=== PATIENT | male | born 1960 | race Caucasian/White ===

== ENCOUNTER 2016-09-17 11:45 | Inpatient (IN) | payer OTHER ==
[2016-09-17 13:07] VITALS: BMI 25.3
--- NOTE | 2016-09-17 15:13 | HP ---
COWS - Scale Resting Pulse: 1= [place] 81-100 Sweatin=Flushed/Facial Moisture Restless Observation: 1= Difficult to Sit Still Pupil Size: 1= Pupils >than Normal Bone or Joint Aches: 2= Severe Diffuse Aches Runny Nose/ Eye Tearin= Nasal Congestion GI Upset > 30mins: 1= Stomach Cramp Tremor Observation: 2= Slight Tremor Visible Yawning Observation: 1= 1-2x During Session Anxiety or Irritability: 1=Feels Anxious/Irritable Goose Flesh Skin: 0=Smooth Skin COWS Score: 13 Admission ROS BHS - HPI Chief Complaint: I need help to stop using heroin . Allergies/Adverse Reactions: Allergies Allergy/AdvReac Type Severity Reaction Status Date / Time Fish Containing Products Allergy Severe Rash Verified 09/17/16 14:54 gabapentin [From Neurontin] Allergy Severe Cough Verified 06/07/16 14:30 pregabalin [From Lyrica] AdvReac Severe depression Verified 06/07/16 14:30 History of Present Illness: 56 y/o m pt with a h/o heroin dep. and alcohol abuse seeking detox. Exam Limitations: No Limitations - Ebola screening Have you traveled outside of the country in the last 21 days: No Have you had contact with anyone from an Ebola affected area: No Have you been sick,other than usual withdrawal symptoms: No Do you have a fever: No - Review of Systems Constitutional: Malaise, Night Sweats, Changes in sleep, Weakness EENT: reports: Nose Congestion Respiratory: reports: No Symptoms reported Cardiac: reports: No Symptoms Reported GI: reports: Nausea, Abdominal cramping : reports: No Symptoms Reported Musculoskeletal: reports: Joint Pain (rt shoulder) Integumentary: reports: No Symptoms Reported Neuro: reports: Tremors Endocrine: reports: No Symptoms Reported Hematology: reports: No Symptoms Reported Psychiatric: reports: Depressed Other Systems: Reviewed and Negative Patient History - Patient Medical History Hx Anemia: No Hx Asthma: No Hx Chronic Obstructive Pulmonary Disease (COPD): No Hx Cancer: No Hx Cardiac Disorders: No Hx Congestive Heart Failure: No Hx Hypertension: No Hx Hypercholesterolemia: No Hx Pacemaker: No HX Cerebrovascular Accident: No Hx Seizures: No Hx Dementia: No Hx Diabetes: No Hx Gastrointestinal Disorders: No Hx Liver Disease: No Hx Genitourinary Disorders: No Hx Sexually Transmitted Disorders: No Hx Renal Disease (ESRD): No Hx Thyroid Disease: No Hx Human Immunodeficiency Virus (HIV): No (Last tested: 2014: NEGATIVE.) Hx Hepatitis C: No (Last tested: 2014: NEGATIVE.) Hx Depression: Yes Hx Suicide Attempt: No Hx Bipolar Disorder: No Hx Schizophrenia: No Other Medical History: chronic lbp - Patient Surgical History Past Surgical History: Yes Hx Neurologic Surgery: No Hx Cataract Extraction: No Hx Cardiac Surgery: No Hx Lung Surgery: No Hx Breast Surgery: No Hx Breast Biopsy: No Hx Abdominal Surgery: Yes (LEFT INGUINAL HERNIA SX IN YOUNGER YEARS) Hx Appendectomy: No Hx Cholecystectomy: No Hx Genitourinary Surgery: No Hx Section: No Hx Orthopedic Surgery: No Other Surgical History: Hx. of fall from height, Pt stated had trumatic brain injury, no surgery Anesthesia Reaction: No - PPD History Previous Implant?: Yes Documented Results: Positive w/proof Implanted On Prior [facility] Admission?: No Results: CXR(-) - Reproductive History Patient is a Female of Child Bearing Age (11 -55 yrs old): No - Smoking Cessation Smoking history: Current every day smoker Have you smoked in the past 12 months: Yes Aproximately how many cigarettes per day: 10 Cigars Per Day: 0 Hx Chewing Tobacco Use: No Initiated information on smoking cessation: Yes 'Breaking Loose' booklet given: 09/17/16 - Substance & Tx. History Hx Alcohol Use: Yes Hx Substance Use: Yes Substance Use Type: Alcohol, Heroin Hx Substance Use Treatment: Yes - Substances Abused Heroin Route: Inhalation Frequency: Daily Amount used: 8-10 BAGS Age of first use: 32 Date of Last Use: 09/17/16 Alcohol Route: Oral Frequency: 3-6 times per week Amount used: 6 VODKA DRINKS Age of first use: 14 Date of Last Use: 09/16/16 Family Disease History - Family Disease History Family History: Denies Admission Physical Exam BHS - Vital Signs Vital Signs: Vital Signs - 24 hr 09/17/16 13:06 Temperature 97.1 F L Pulse Rate 81 Respiratory 18 Rate Blood Pressure 141/88 56 y/o m pt aox3 in nad ambulating - Physical General Appearance: Yes: No Apparent Distress, Disheveled HEENTM: Yes: EOMI, Normocephalic, Normal Voice, ARYAN, Nasal Congestion Respiratory: Yes: Chest Non-Tender, Lungs Clear, Normal Breath Sounds, Decreased Breath Sounds, Labored Respiration, No Respiratory Distress Neck: Yes: Supple, Trachea in good position Breast: Yes: Within Normal Limits Cardiology: Yes: Regular Rhythm, Regular Rate, S1, S2 Abdominal: Yes: Non Tender, Flat, Increased Bowel Sounds, Surgical Scar (rt lq well healed scar) Genitourinary: Yes: Within Normal Limits Back: Yes: Decreased Range of Motion Musculoskeletal: Yes: Back pain Extremities: Yes: Tremors Neurological: Yes: yeast supervisor II-XII NML intact, Fully Oriented, Alert, Motor Strength 5/5, Normal Response Integumentary: Yes: Within Normal Limits, Diaphoresis, Moist Lymphatic: Yes: Within Normal Limits - Diagnostic (1) Opioid dependence with withdrawal Current Visit: Yes Status: Chronic (2) Injury of right shoulder and upper arm Current Visit: Yes Status: Chronic Qualifiers: Encounter type: sequela Qualified Code(s): S49.91XS - Unspecified injury of right shoulder and upper arm, sequela (3) MDD (major depressive disorder) Current Visit: Yes Status: Chronic Qualifiers: Psychotic features: without psychotic features Comment: Historical diagnosis. (4) Nicotine dependence with withdrawal Current Visit: Yes Status: Chronic Qualifiers: Nicotine product type: cigarettes Qualified Code(s): F17.213 - Nicotine dependence, cigarettes, with withdrawal (5) Alcohol abuse Current Visit: Yes Status: Chronic Cleared for Admission [facility] - Detox or Rehab [facility] Level of Care: Medically Managed Detox Regimen/Protocol: Methadone [facility] Breath Alcohol Content Breath Alcohol Content: 0 Urine Drug Screen - Results Urine Drug Screen Results: OPI-Opiates, MTD-Methadone
[2016-09-17] MEDS ORDERED: hydrOXYzine PAMOATE 25 MG CAPSULE (FP) PO PRN (15:28)
[2016-09-17] MEDS ORDERED: ACETAMINOPHEN 325 MG TABLET (FP) PO PRN (15:28)
[2016-09-17] MEDS ORDERED: MAG HYDROX/AL HYDROX/SIMETH 30 ML UNIT-DOSE CUP PO PRN (15:28)
[2016-09-17] MEDS ORDERED: MAGNESIUM HYDROX 2400MG/30ML ORAL SUSPENSION 30 ML CUP PO PRN (15:28)
[2016-09-17] MEDS ORDERED: guaiFENesin/D-METHORPHAN HB 10 ML UNIT-DOSE CUPS PO PRN (15:28)
[2016-09-17] MEDS ORDERED: MAGNESIUM CITRATE 300 ML BOTTLE PO PRN (15:28)
[2016-09-17] MEDS ORDERED: diphenhydrAMINE HCL 50 MG CAPSULE PO PRN (15:28)
[2016-09-17] MEDS ORDERED: IBUPROFEN 400 MG TABLET (FP) PO PRN (15:28)
[2016-09-17] MEDS ORDERED: MENTHOL/PHENOL 1 EACH UD MM PRN (15:28)
[2016-09-17] MEDS ORDERED: LOPERAMIDE HCL 2 MG CAPSULE PO PRN (15:28)
[2016-09-17] MEDS ORDERED: P-EPHED 60MG/TRIPROLIDI 2.5MG TABLET PO PRN (15:28)
[2016-09-17] MEDS ORDERED: METHADONE HCL 10 MG TABLET (FOR DETOX USE ONLY) PO ONE ×2 (16:00→23:00)
[2016-09-17] MEDS: diazePAM 5 MG TABLET PO PRN ×2 (17:00→23:07)
[2016-09-17] MEDS: THIAMINE HCL 100 MG TABLET (FP) PO SCH (23:07)
[2016-09-18] MEDS: diazePAM 5 MG TABLET PO PRN ×4 (05:21→22:13)
[2016-09-18 09:57] LABS: MCH 33.4 pg (25.7-33.7); MCHC 34.2 g/dl (32.0-35.9); MEAN CELL VOLUME 97.6 fl (80-96); MEAN PLT VOLUME 9.8 fl (7.5-11.1); PLATELET COUNT 155 K/MM3 (134-434); RDW 12.5 % (11.9-15.9); WHITE BLOOD COUNT 6.8 K/mm3 (4.0-10.0)
[2016-09-18] MEDS ORDERED: METHADONE HCL 10 MG TABLET (FOR DETOX USE ONLY) PO ONE (10:00)
[2016-09-18 10:17] LABS: ANION GAP 9 (8-16); CALCIUM 8.5 mg/dL (8.5-10.1); CO2 28 mmol/L (21-32); CREATININE 0.8 mg/dL (0.7-1.3); GLUCOSE,RANDOM 113 mg/dL (74-106); SGOT/AST 17 U/L (15-37); SGPT/ALT 21 U/L (12-78)
[2016-09-18 10:18] LABS: ALK PHOS 83 U/L (45-117); BILIRUBIN,TOTAL 0.4 mg/dL (0.2-1.0); TOT PROT 6.5 g/dl (6.4-8.2)
[2016-09-18] MEDS: PRENATAL VITAMINS W/ FOLIC ACID TABLET (FP) PO SCH (10:36)
--- NOTE | 2016-09-18 11:32 | PN ---
BHS COWS - Scale Resting Pulse: 1= [place] 81-100 Sweatin=Flushed/Facial Moisture Restless Observation: 1= Difficult to Sit Still Pupil Size: 0= Normal to Room Light Bone or Joint Aches: 2= Severe Diffuse Aches Runny Nose/ Eye Tearin= Nasal Congestion GI Upset > 30mins: 1= Stomach Cramp Tremor Observation of Outstretched Hands: 2= Slight Tremor Visible Yawning Observation: 2= >3x During Session Anxiety or Irritability: 2=Irritable/Anxious Goose Flesh Skin: 3=Piloerection COWS Score: 17 BHS Progress Note (SOAP) Subjective: agitation anxiety sweats irritable body aches interrupted sleep Objective: 09/18/16 11:31 Vital Signs Temperature 97.7 F 09/18/16 10:47 Pulse Rate 87 09/18/16 10:47 Respiratory Rate 16 09/18/16 10:47 Blood Pressure 98/54 09/18/16 10:47 O2 Sat by Pulse Oximetry (%) Laboratory Tests 09/18/16 09/18/16 06:00 06:00 WBC 6.8 RBC 4.34 Hgb 14.5 Hct 42.4 MCV 97.6 H MCHC 34.2 RDW 12.5 Plt Count 155 MPV 9.8 Sodium 140 Potassium 4.0 Chloride 103 Carbon Dioxide 28 Anion Gap 9 BUN 17 Creatinine 0.8 Creat Clearance w eGFR > 60 Random Glucose 113 H D Calcium 8.5 Total Bilirubin 0.4 AST 17 D ALT 21 D Alkaline Phosphatase 83 Total Protein 6.5 D Albumin 4.0 D labs pending awake/alert ambulating no acute distress Assessment: 09/18/16 11:32 withdrawal sx Plan: continue detox increase fluids
--- NOTE | 2016-09-18 13:00 | CONSULT ---
[facility] Psychiatric Consult - Data Date of interview: 09/18/16 Admission source: [facility] Identifying data: Another admission to [facility] for this 56 y/o male seeking detox treatment on for alcohol and heroin dependence.Patient is single without children,domiciled and physically disabled (supported on [facility] and [place] pension benefits). Substance Abuse History: - Smoking Cessation. Smoking history: Current every day smoker. Have you smoked in the past 12 months: Yes. Aproximately how many cigarettes per day: 10. Cigars Per Day: 0. Hx Chewing Tobacco Use: No. Initiated information on smoking cessation: Yes. 'Breaking Loose' booklet given : 09/17/16. - Substance & Tx. History. Hx Alcohol Use: Yes. Hx Substance Use : Yes. Substance Use Type: Alcohol, Heroin. Hx Substance Use Treatment: Yes. - Substances Abused. Heroin. Route: Inhalation. Frequency: Daily. Amount used: 8-10 BAGS. Age of first use: 32. Date of Last Use: 09/17/16. Alcohol. Route: Oral. Frequency: 3-6 times per week. Amount used: 6 VODKA DRINKS. Age of first use: 14. Date of Last Use: 09/16/16 Medical History: Low back pain,traumatic brain injury and left inguinal herniorraphy. Psychiatric History: Patient is an irritable and hostile historian." Get my records and you 'll find whtever you want to know.I am tired." Patient is already known to [facility].History taken from past records.As follows : diagnosed with PTSD (wounded in combat during tour of duty in [facility] in 1982).History of multiple psychiatric hospitalizations as well as two extensive stays at the [facility] (last hospitalization was in 2013) .Hospitalizations were at various [facility] facilities for a syndrome made of nightmares,panic attacks,flashbacks related to past combat situations,mood dysregulation,poor general functioning and hopelessness).For a number of years,the patient received OPD services at the [facility] ( [facility]) consisting of psychotherapy and medication management (remeron ,prazosin,zolpidem,sertraline).Mr Stallings,in this interview,declines to resume his past medications.No reported attendance to any OPD care setting at this time.No report of suicide attempts. Physical/Sexual Abuse/Trauma History: No reported history of sexual abuse.Traumatized by his war experiences in [facility],[place] ([place]). Additional Comment: Urine Drug Screen Results: OPI-Opiates, MTD-Methadone.Noted. Mental Status Exam - Mental Status Exam Alert and Oriented to: Time, Place, Person Cognitive Function: Grossly Intact Patient Appearance: Unkempt, Disheveled Mood: Nervous, Withdrawn, Irritable Affect: Mood Congruent Patient Behavior: Sedated, Fatigued Speech Pattern: Clear Voice Loudness: Normal Thought Process: Goal Oriented Thought Disorder: Not Present Hallucinations: Denies Suicidal Ideation: Denies Homicidal Ideation: Denies Insight/Judgement: Poor Sleep: Fair Appetite: Good Muscle strength/Tone: Normal Gait/Station: Normal Psychiatric Findings - Problem List ([place] 1, 2,3) (1) Opioid dependence with withdrawal Current Visit: Yes Status: Acute (2) Alcohol dependence Current Visit: Yes Status: Acute (3) Cocaine dependence with withdrawal Current Visit: Yes Status: Acute (4) Nicotine dependence Current Visit: Yes Status: Acute Qualifiers: Nicotine product type: cigarettes Substance use status: uncomplicated Qualified Code(s): F17.210 - Nicotine dependence, cigarettes, uncomplicated (5) PTSD (post-traumatic stress disorder) Current Visit: Yes Status: Chronic Comment: By history. (6) Substance induced mood disorder Current Visit: Yes Status: Acute - Initial Treatment Plan Initial Treatment Plan: Psychoeducation.Detoxification.Patient refused to get back on antidepressant/atypical agents and hypnotic medications in spite of this auto service writer's pressing recommendations.Made aware of potential risks taken by abstaining from psychopharmacotherapy.Observation.
[2016-09-18] MEDS: THIAMINE HCL 100 MG TABLET (FP) PO SCH (22:14)
--- NOTE | 2016-09-18 23:39 | EKG ---
Test Reason : Blood Pressure : / mmHG Vent. Rate : 072 BPM Atrial Rate : 072 BPM P-R Int : 142 ms QRS Dur : 088 ms QT Int : 398 ms P-R-T Axes : 079 037 041 degrees QTc Int : 435 ms NORMAL SINUS RHYTHM POSSIBLE LEFT ATRIAL ENLARGEMENT SEPTAL INFARCT , AGE UNDETERMINED ABNORMAL ECG NO PREVIOUS ECGS AVAILABLE Confirmed by PREETI HERMOSILLO, MARTINA ([id number]) on 09/18/2016 11:39:19 PM Referred By: Kwesi Noel Confirmed By:MARTINA ÁLVAREZ MD
--- NOTE | 2016-09-19 08:55 | DS ---
[facility] Detox Discharge Summary Admission Date: 09/17/16 Discharge Date: 09/19/16 - History Present History: Alcohol Dependence, Opioid Dependence - Physical Exam Results Vital Signs: Vital Signs Temperature 97.9 F 09/19/16 06:00 Pulse Rate 60 09/19/16 06:00 Respiratory Rate 18 09/19/16 06:00 Blood Pressure 127/85 09/19/16 06:00 O2 Sat by Pulse Oximetry (%) - Treatment Hospital Course: Detox Protocol Followed, Detoxed Safely, Responded well, Discharged Condition Good - Medication Discharge Medications: Ambulatory Orders NK [No Known Home Medication] 09/17/16 - Diagnosis (1) Opioid dependence with withdrawal Current Visit: Yes Status: Acute (2) Injury of right shoulder and upper arm Current Visit: Yes Status: Chronic Qualifiers: Encounter type: sequela Qualified Code(s): S49.91XS - Unspecified injury of right shoulder and upper arm, sequela (3) MDD (major depressive disorder) Current Visit: Yes Status: Chronic Qualifiers: Psychotic features: without psychotic features (4) Nicotine dependence with withdrawal Current Visit: Yes Status: Chronic Qualifiers: Nicotine product type: cigarettes Qualified Code(s): F17.213 - Nicotine dependence, cigarettes, with withdrawal (5) Alcohol abuse Current Visit: Yes Status: Chronic
[2016-09-19] MEDS ORDERED: METHADONE HCL 5 MG TABLET (FOR DETOX USE ONLY) PO ONE (10:00)
[2016-09-19] MEDS ORDERED: CYCLOBENZAPRINE HCL 10 MG TABLET (FP) PO PRN (10:42)
[2016-09-19] MEDS: PRENATAL VITAMINS W/ FOLIC ACID TABLET (FP) PO SCH (10:50)
[2016-09-19] MEDS: diazePAM 5 MG TABLET PO PRN ×2 (10:53→22:06)
--- NOTE | 2016-09-19 11:24 | PN ---
S COWS - Scale Resting Pulse: 0= [place] 80 or Below Sweatin=Flushed/Facial Moisture Restless Observation: 1= Difficult to Sit Still Pupil Size: 1= Pupils >than Normal Bone or Joint Aches: 1= Mild Discomfort Runny Nose/ Eye Tearin= Runny Nose/Eyes GI Upset > 30mins: 2= Nausea/Diarrhea Tremor Observation of Outstretched Hands: 1= Tremor [place], Not Seen Yawning Observation: 0= None Anxiety or Irritability: 1=Feels Anxious/Irritable Goose Flesh Skin: 0=Smooth Skin COWS Score: 11 S Progress Note (SOAP) Subjective: interrupted sleep, sweats, nausea, achy Objective: 09/19/16 11:20 Vital Signs Temperature 97.5 F L 09/19/16 09:51 Pulse Rate 80 09/19/16 09:51 Respiratory Rate 18 09/19/16 09:51 Blood Pressure 96/63 09/19/16 09:51 O2 Sat by Pulse Oximetry (%) Vital Signs Temperature 97.5 F L 09/19/16 09:51 Pulse Rate 80 09/19/16 09:51 Respiratory Rate 18 09/19/16 09:51 Blood Pressure 96/63 09/19/16 09:51 O2 Sat by Pulse Oximetry (%) Laboratory Tests 09/18/16 09/18/16 09/18/16 06:00 06:00 06:00 WBC 6.8 RBC 4.34 Hgb 14.5 Hct 42.4 MCV 97.6 H MCHC 34.2 RDW 12.5 Plt Count 155 MPV 9.8 Sodium 140 Potassium 4.0 Chloride 103 Carbon Dioxide 28 Anion Gap 9 BUN 17 Creatinine 0.8 Creat Clearance w eGFR > 60 Random Glucose 113 H D Calcium 8.5 Total Bilirubin 0.4 AST 17 D ALT 21 D Alkaline Phosphatase 83 Total Protein 6.5 D Albumin 4.0 D RPR Titer Nonreactive pt aox3 lying in bed Assessment: 09/19/16 11:23 withdrawal sx's Plan: cont. detox increase fluids
--- NOTE | 2016-09-19 17:16 | PN ---
S Progress Note Note: requests ua order continue detox
[2016-09-19 21:07] LABS: URINE APPEARANCE CLEAR; URINE BILIRUBIN NEGATIVE (NEGATIVE); URINE BLOOD NEGATIVE (NEGATIVE); URINE COLOR LTYELLOW; URINE GLUCOSE (UA) NEGATIVE (NEGATIVE); URINE KETONE NEGATIVE (NEGATIVE); URINE LEUK ESTERASE NEGATIVE (NEGATIVE); URINE NITRITE NEGATIVE (NEGATIVE); URINE PROTEIN NEGATIVE (NEGATIVE); URINE UROBILINOGEN NEGATIVE E.U./dl (0.2-1.0)
[2016-09-19] MEDS: THIAMINE HCL 100 MG TABLET (FP) PO SCH (22:07)
--- NOTE | 2016-09-20 09:55 | PN ---
BHS Progress Note (SOAP) Subjective: sweats irritable agitation chills Objective: 09/20/16 09:48 Vital Signs Temperature 98.0 F 09/20/16 06:25 Pulse Rate 67 09/20/16 06:25 Respiratory Rate 18 09/20/16 06:25 Blood Pressure 123/78 09/20/16 06:25 O2 Sat by Pulse Oximetry (%) awake/alert ambulating no acute distress Assessment: 09/20/16 09:48 withdrawal sx Plan: continue detox increase fluids
[2016-09-20] MEDS ORDERED: METHADONE HCL 5 MG TABLET (FOR DETOX USE ONLY) PO ONE (10:00)
[2016-09-20] MEDS: diazePAM 5 MG TABLET PO PRN (10:24)
[2016-09-20] MEDS: PRENATAL VITAMINS W/ FOLIC ACID TABLET (FP) PO SCH (10:24)
[2016-09-20] MEDS: THIAMINE HCL 100 MG TABLET (FP) PO SCH (23:26)
--- NOTE | 2016-09-21 08:39 | PN ---
[facility] Progress Note Note: pt states he feels much better and would like to be d/c today. pt had acknowledged that he will receive his last methadone today and then go to rehab.
--- NOTE | 2016-09-21 08:43 | DS ---
[facility] Detox Discharge Summary Admission Date: 09/17/16 Discharge Date: 09/21/16 - History Present History: Alcohol Dependence, Cocaine Dependence, Opioid Dependence - Physical Exam Results Vital Signs: Vital Signs Temperature 97.7 F 09/21/16 06:38 Pulse Rate 68 09/21/16 06:38 Respiratory Rate 16 09/21/16 06:38 Blood Pressure 118/81 09/21/16 06:38 O2 Sat by Pulse Oximetry (%) - Treatment Hospital Course: Detox Protocol Followed, Detoxed Safely, Responded well, Discharged Condition Good, Rehab Referral Accepted - Medication Discharge Medications: Ambulatory Orders NK [No Known Home Medication] 09/17/16 - Diagnosis (1) Alcohol dependence Current Visit: Yes Status: Acute Qualifiers: Substance use status: uncomplicated Qualified Code(s): F10.20 - Alcohol dependence, uncomplicated (2) Cocaine dependence with withdrawal Current Visit: Yes Status: Chronic (3) Nicotine dependence Current Visit: Yes Status: Chronic Qualifiers: Nicotine product type: cigarettes Substance use status: uncomplicated Qualified Code(s): F17.210 - Nicotine dependence, cigarettes, uncomplicated (4) Opioid dependence with withdrawal Current Visit: Yes Status: Chronic (5) Substance induced mood disorder Current Visit: Yes Status: Acute (6) Injury of right shoulder and upper arm Current Visit: Yes Status: Chronic Qualifiers: Encounter type: sequela Qualified Code(s): S49.91XS - Unspecified injury of right shoulder and upper arm, sequela (7) MDD (major depressive disorder) Current Visit: Yes Status: Chronic Qualifiers: Psychotic features: without psychotic features (8) PTSD (post-traumatic stress disorder) Current Visit: Yes Status: Chronic (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
[2016-09-21 09:59] VITALS: BP 107/78; PULSE 80; TEMP 98.6
[2016-09-21] MEDS ORDERED: METHADONE HCL 10 MG TABLET (FOR DETOX USE ONLY) PO ONE (10:00)
[2016-09-21] MEDS: PRENATAL VITAMINS W/ FOLIC ACID TABLET (FP) PO SCH (10:05)
[2016-09-22] MEDS ORDERED: METHADONE HCL 5 MG TABLET (FOR DETOX USE ONLY) PO ONE (06:00)
== END 2016-09-21 12:01 | disposition other institution (70) | DRG 773 ==
LOC: YASAS 11:45 → Y6N 15:30
PROVIDERS: ADMIT Internal Medicine Addiction Medicine; ATTEND Internal Medicine Addiction Medicine
PROC: HZ2ZZZZ Detoxification Services for Substance Abuse Treatment (ICD-10-PCS; principal; 2016-09-21)
DX: F11.23 Opioid dependence with withdrawal (principal); F10.20 Alcohol dependence, uncomplicated; F14.20 Cocaine dependence, uncomplicated; F15.10 Other stimulant abuse, uncomplicated; F19.24 Other psychoactive substance dependence with psychoactive substance-induced mood disorder; F33.9 Major depressive disorder, recurrent, unspecified; F43.10 Post-traumatic stress disorder, unspecified; G47.00 Insomnia, unspecified; F51.5 Nightmare disorder; S49.91XS Unspecified injury of right shoulder and upper arm, sequela
CPT/HCPCS: 36415; 80053; 81003; 85027; 86593; 93005; 93010

== ENCOUNTER 2016-09-21 12:24 | Inpatient (IN) | payer OTHER ==
[2016-09-21] MEDS ORDERED: MAGNESIUM CITRATE 300 ML BOTTLE PO PRN (13:10)
[2016-09-21] MEDS ORDERED: IBUPROFEN 400 MG TABLET (FP) PO PRN (13:10)
[2016-09-21] MEDS ORDERED: hydrOXYzine PAMOATE 50 MG CAPSULE (FP) PO PRN (13:10)
[2016-09-21] MEDS ORDERED: P-EPHED 60MG/TRIPROLIDI 2.5MG TABLET PO PRN (13:10)
[2016-09-21] MEDS ORDERED: guaiFENesin/D-METHORPHAN HB 10 ML UNIT-DOSE CUPS PO PRN (13:10)
[2016-09-21] MEDS ORDERED: ACETAMINOPHEN 325 MG TABLET (FP) PO PRN (13:10)
[2016-09-21] MEDS ORDERED: diphenhydrAMINE HCL 50 MG CAPSULE PO PRN (13:10)
[2016-09-21] MEDS ORDERED: MENTHOL/PHENOL 1 EACH UD MM PRN (13:10)
[2016-09-21] MEDS ORDERED: MAG HYDROX/AL HYDROX/SIMETH 30 ML UNIT-DOSE CUP PO PRN (13:10)
[2016-09-21] MEDS ORDERED: MAGNESIUM HYDROX 2400MG/30ML ORAL SUSPENSION 30 ML CUP PO PRN (13:10)
[2016-09-21] MEDS ORDERED: LOPERAMIDE HCL 2 MG CAPSULE PO PRN (13:10)
--- NOTE | 2016-09-21 13:14 | HP ---
MARTHA HERMOSILLO Rehab Assess/Revision - Admission History Admitted to Rehab from: [facility] [place] Date of Admission to Rehab: 09/21/16 - Findings Detox History & Physical reviewed: Yes Concur with findings: Yes Comments/Additional Findings: FOR REHAB PROTOCOL
[2016-09-21] MEDS ORDERED: NICOTINE POLACRILEX 2 MG GUM BUC PRN (13:15)
[2016-09-21 13:35] VITALS: BMI 25.4
--- NOTE | 2016-09-21 14:23 | HP ---
Psychiatrist Admission - Data Date of interview: 09/21/16 Admission source: [facility] Identifying data: This is the second [facility] admission for this 56 years old single male, unemployed on [facility] [employer] pension, domiciled Medical History: Significant for Low back pain,traumatic brain injury and left inguinal herniorraphy. Smokes 10 cigarettes daily Psychiatric History: Reports being diagnosed with MDD and PTSD(wounded in combat during tour of duty in [facility] in 1982).Reports multiple previous psychiatric admissions to various [place] [facility] since 1982. Most recent admission was in 2012 at [facility]. Reports receiving OPD care at [facility] in the past. No OPD care at present and stopped taking psychotropic medications 8 months ago. He was on Seroquel, Remeron, Zoloft, Prazosin etc. He stopped taking Seroquel due to restless leg. Denies history of suicidal attempt. Requests to restart taking Remeron and Prazosin during this admission Physical/Sexual Abuse/Trauma History: No reported history of sexual abuse.Traumatized by his war experiences in [facility] (1982). Additional Comment: Reports historyof 3-4 previous arrests including 2 felony convictions. Denies being on probation/parle at present Vital Signs: Vital Signs - 24 hr 09/21/16 13:31 Temperature 99.0 F Pulse Rate 70 Blood Pressure 111/70 Allergies/Adverse Reactions: Allergies Allergy/AdvReac Type Severity Reaction Status Date / Time Fish Containing Products Allergy Severe Rash Verified 09/17/16 14:54 gabapentin [From Neurontin] Allergy Severe Cough Verified 06/07/16 14:30 pregabalin [From Lyrica] AdvReac Severe depression Verified 06/07/16 14:30 Date of last physical exam: 09/17/16 Concur with the findings of this exam: Yes - Substance Abuse/Tx History Hx Alcohol Use: Yes Hx Substance Use: Yes Substance Use Type: Alcohol (Started drinking alcohol at age 14, drinks vodka occasionally.Last drink on 09/16/16), Heroin (Started using heroin at age 32, consumes 8-10 bags daily. Last used on 09/17/16) Hx Substance Use Treatment: Yes (4 previous inpt detox & one inpt rehab @ [facility]) - Admission Criteria Previous failed treatment: No Poor recovery environment: Yes Comorbidities: Yes Lacks judgement: Yes Mental Status Exam - Mental Status Exam Alert and Oriented to: Time, Place, Person Cognitive Function: Fair Patient Appearance: Well Groomed Mood: Anxious Affect: Normal Range Patient Behavior: Cooperative Speech Pattern: Clear Voice Loudness: Normal Thought Process: Intact Thought Disorder: Not Present Hallucinations: Denies Suicidal Ideation: Denies Homicidal Ideation: Denies Insight/Judgement: Fair Sleep: Poorly Appetite: Good Muscle strength/Tone: Normal Gait/Station: Normal Psychiatric Findings - Problem List ([place] 1, 2,3) (1) Opioid dependence with withdrawal Current Visit: No Status: Chronic (2) Alcohol abuse Current Visit: Yes Status: Acute (3) Nicotine dependence Current Visit: Yes Status: Acute (4) MDD (major depressive disorder) Current Visit: Yes Status: Acute (5) PTSD (post-traumatic stress disorder) Current Visit: Yes Status: Acute (6) Acute low back pain Current Visit: Yes Status: Acute (7) PPD positive Current Visit: Yes Status: Acute - Initial Treatment Plan Initial Treatment Plan: 1) Start Remeron 30 mg po HS and Prazosin 1 mg po HS. 2 ) Monitor progress
[2016-09-21] MEDS: THIAMINE HCL 100 MG TABLET (FP) PO SCH (22:03)
[2016-09-22] MEDS: NICOTINE 21 MG/24 HOURS TOPICAL PATCH TD SCH (10:10)
[2016-09-22] MEDS: PRENATAL VITAMINS W/ FOLIC ACID TABLET (FP) PO SCH (10:10)
[2016-09-22] MEDS ORDERED: PRAZOSIN HCL 1 MG CAPSULE PO SCH (22:00)
[2016-09-22] MEDS: MIRTAZAPINE 30 MG TABLET (FP) PO SCH (22:04)
[2016-09-22] MEDS: THIAMINE HCL 100 MG TABLET (FP) PO SCH (22:04)
--- NOTE | 2016-09-23 06:18 | PN ---
[facility] Progress Note Note: ASKED TO SEE CLIENT FOR FALL. CLIENT REPORTS FEELING WEAK, TIRED AND LIGHTHEADED LOST HIS BALANCE AND FELL ON HIS BUTTOCKS. DENIES ANY INJURIES, LOC , CP, SOB,HEAD TRAUMA Vital Signs Temperature 98.1 F 09/23/16 06:41 Pulse Rate 89 09/23/16 06:41 Respiratory Rate 18 09/23/16 06:41 Blood Pressure 92/51 09/23/16 06:41 O2 Sat by Pulse Oximetry (%) BGM 100 A/O X3 NAD APPEARS LETHARGIC HEAD NCAT NO VISIBLE INJURIES NOTED FROM X4 W/O LIMITATIONS NOTED S/P FALL FALL PROTOCOL #2 V/S Q SHIFT X 4 HOURS PO HYDRATION HOLD ALL SEDATING MEDS
[2016-09-23] MEDS: NICOTINE 21 MG/24 HOURS TOPICAL PATCH TD SCH (09:33)
[2016-09-23] MEDS: PRENATAL VITAMINS W/ FOLIC ACID TABLET (FP) PO SCH (09:34)
[2016-09-23] MEDS: MIRTAZAPINE 30 MG TABLET (FP) PO SCH (21:11)
[2016-09-23] MEDS: THIAMINE HCL 100 MG TABLET (FP) PO SCH (21:12)
[2016-09-24] MEDS: PRENATAL VITAMINS W/ FOLIC ACID TABLET (FP) PO SCH (10:48)
[2016-09-24] MEDS: NICOTINE 21 MG/24 HOURS TOPICAL PATCH TD SCH (10:49)
[2016-09-24] MEDS: MIRTAZAPINE 30 MG TABLET (FP) PO SCH (21:09)
[2016-09-24] MEDS: THIAMINE HCL 100 MG TABLET (FP) PO SCH (21:09)
[2016-09-25 06:47] VITALS: BP 104/60; PULSE 83; TEMP 97.7
--- NOTE | 2016-09-25 09:33 | PN ---
Psychiatric Progress Note Vital Signs: Vital Signs Period Temp Pulse Resp BP Sys/Capone Pulse Ox Last 24 Hr 97.7 F 83 18-18 104/60 Date of Session: 09/25/16 Chief Complaint:: Psychiatrist Discharge Note HPI: Patient addressing Opoid Dependence ans Alcohol Abuse comorbid with Nicotine Dependence, MDD and PTSD Current Medications: Active Medications Generic Name Dose Route Start Last Admin Trade Name Freq PRN Reason Stop Dose Admin Acetaminophen 650 mg 09/21/16 13:10 Tylenol - PO Q4H PRN FEVER OR PAIN Al Hydroxide/Mg Hydroxide 30 ml 09/21/16 13:10 Mylanta Oral Suspension - PO Q6H PRN DYSPEPSIA Diphenhydramine HCl 50 mg 09/21/16 13:10 09/24/16 21:09 Benadryl - PO 50 mg HSMR1 PRN Administration FOR ITCHING Eucalyptus/Menthol/Phenol/Sorbitol 1 each 09/21/16 13:10 Cepastat Lozenge - MM Q4H PRN SORE THROAT Guaifenesin 10 ml 09/21/16 13:10 Robitussin Dm - PO Q6H PRN COUGH Hydroxyzine Pamoate 50 mg 09/21/16 13:10 Vistaril - PO Q4H PRN AGITATION Ibuprofen 400 mg 09/21/16 13:10 Motrin - PO Q6H PRN PAIN Loperamide HCl 4 mg 09/21/16 13:10 Imodium - PO Q6H PRN DIARRHEA Magnesium Hydroxide 30 ml 09/21/16 13:10 Milk Of Magnesia - PO DAILY PRN CONSTIPATION Mirtazapine 30 mg 09/22/16 22:00 09/24/16 21:09 Remeron - PO 30 mg HS MANDA Administration Nicotine 21 mg 09/22/16 10:00 09/24/16 10:49 Nicoderm Patch - TD Not Given DAILY MANDA Nicotine Polacrilex 2 mg 09/21/16 13:15 Nicorette Gum - BUC Q2H PRN NICOTINE REPLACEMENT RX Multivit/Folic Acid/Iron 1 tab 09/22/16 10:00 09/24/16 10:48 Vitamins (Sjr) - PO Not Given DAILY MANDA Pseudoephedrine/Triprolidine 1 combo 09/21/16 13:10 Actifed - PO TID PRN NASAL CONGESTION Thiamine HCl 100 mg 09/21/16 22:00 09/24/16 21:09 Vitamin B1 - PO 100 mg HS MANDA Administration Current Side Effect: No Lab tests ordered: Yes Lab tests reviewed: Yes Provider note:: Patient wants to leave against medical advice and not willing to provide a reason Just saying" I just want to leave. I don't want to be here" Counselor and I met with patient and despite encouragement to stay and complete this program, he was determined to leave. Patient is stable to leave against medical advice. Total face to face time:: 25 Mental Status Exam - Mental Status Exam Alert and Oriented to: Time, Place, Person Cognitive Function: Fair Patient Appearance: Well Groomed Mood: Hopeful, Euthymic Affect: Appropriate Patient Behavior: Cooperative Speech Pattern: Clear Voice Loudness: Normal Thought Process: Intact Thought Disorder: Not Present Hallucinations: Denies Suicidal Ideation: Denies Homicidal Ideation: Denies Insight/Judgement: Fair Sleep: Fair Appetite: Good Muscle strength/Tone: Normal Gait/Station: Normal Psychiatric Treatment Plan - Problem List (1) Opioid dependence with withdrawal Current Visit: No (2) Alcohol abuse Current Visit: Yes (3) Nicotine dependence Current Visit: Yes (4) MDD (major depressive disorder) Current Visit: Yes (5) PTSD (post-traumatic stress disorder) Current Visit: Yes (6) Acute low back pain Current Visit: Yes (7) PPD positive Current Visit: Yes Initial treatment plan: Patient is leaving AMA
== END 2016-09-25 09:55 | disposition left against medical advice (07) | DRG 770 ==
LOC: YASAS 12:24 → Y3W 12:25
PROVIDERS: ADMIT Psychiatry & Neurology Psychiatry; ATTEND Psychiatry & Neurology Psychiatry
PROC: HZ42ZZZ Group Counseling for Substance Abuse Treatment, Cognitive-Behavioral (ICD-10-PCS; principal; 2016-09-25)
DX: F11.23 Opioid dependence with withdrawal (principal); F10.10 Alcohol abuse, uncomplicated; F17.210 Nicotine dependence, cigarettes, uncomplicated; F33.9 Major depressive disorder, recurrent, unspecified; M54.5 Low back pain; R76.11 Nonspecific reaction to tuberculin skin test without active tuberculosis

== ENCOUNTER 2016-10-23 10:37 | Inpatient (IN) | payer OTHER ==
[2016-10-23 11:06] VITALS: BMI 24.4
--- NOTE | 2016-10-23 13:31 | HP ---
COWS - Scale Resting Pulse: 2= [place] 101-120 Sweatin= Chills/Flushing Restless Observation: 3= Extraneous Movement Pupil Size: 2= Moderately Dilated Bone or Joint Aches: 4=Acute Joint/Muscle Pain Runny Nose/ Eye Tearin= Runny Nose/Eyes GI Upset > 30mins: 2= Nausea/Diarrhea (NO DIARRHEA) Tremor Observation: 2= Slight Tremor Visible Yawning Observation: 1= 1-2x During Session Anxiety or Irritability: 2=Irritable/Anxious Goose Flesh Skin: 0=Smooth Skin COWS Score: 21 Admission ROS S - HPI Chief Complaint: DETOX TX FOR HEROIN DEPENDENCE Allergies/Adverse Reactions: Allergies Allergy/AdvReac Type Severity Reaction Status Date / Time Fish Containing Products Allergy Severe Rash Verified 10/23/16 12:31 gabapentin [From Neurontin] Allergy Severe Cough Verified 10/23/16 12:31 pregabalin [From Lyrica] AdvReac Severe depression Verified 10/23/16 12:31 History of Present Illness: 56 Y/O MALE WITH A HX OF HEROIN DEPENDENCE SEEKING DETOX TX. ON RX BENZO BUT NOT ABUSING IT PER PT. ALSO ON RX MINIPRESS BY PSYCH FOR SEVER NIGHTMARES. HX PTSD-- [place] [place]. Exam Limitations: No Limitations - Ebola screening Have you traveled outside of the country in the last 21 days: No Have you had contact with anyone from an Ebola affected area: No Have you been sick,other than usual withdrawal symptoms: No - Review of Systems Constitutional: Chills, Loss of Appetite, Night Sweats, Changes in sleep, Unintentional Wgt. Loss EENT: reports: Tearing, Nose Congestion, Dental Problems (MISSING TEETH) Respiratory: reports: No Symptoms reported Cardiac: reports: No Symptoms Reported GI: reports: Constipated, Diarrhea, Nausea, Poor Appetite, Poor Fluid Intake, Vomiting, Abdominal cramping : reports: No Symptoms Reported Musculoskeletal: reports: Back Pain, Joint Pain, Muscle Pain Integumentary: reports: No Symptoms Reported Neuro: reports: Headache (HX TBI) Endocrine: reports: No Symptoms Reported Hematology: reports: No Symptoms Reported Psychiatric: reports: Orientated x3, Anxious, Depressed (HX PTSD/MDD) Other Systems: Reviewed and Negative Patient History - Patient Medical History Hx Anemia: No Hx Asthma: No Hx Chronic Obstructive Pulmonary Disease (COPD): No Hx Cancer: No Hx Cardiac Disorders: No Hx Congestive Heart Failure: No Hx Hypertension: No (MINIPRESS FOR NIGHTMARES/PTSD) Hx Hypercholesterolemia: No Hx Pacemaker: No HX Cerebrovascular Accident: No Hx Seizures: No Hx Dementia: No Hx Diabetes: No Hx Gastrointestinal Disorders: No Hx Liver Disease: No Hx Genitourinary Disorders: No Hx Sexually Transmitted Disorders: No Hx Renal Disease (ESRD): No Hx Thyroid Disease: No Hx Human Immunodeficiency Virus (HIV): No (Last tested: 2014: NEGATIVE.) Hx Hepatitis C: No (Last tested: 2014: NEGATIVE.) Hx Depression: Yes Hx Suicide Attempt: No Hx Bipolar Disorder: No Hx Schizophrenia: No Other Medical History: HX PTSD/NIGHTMARES - Patient Surgical History Past Surgical History: Yes Hx Neurologic Surgery: No Hx Cataract Extraction: No Hx Cardiac Surgery: No Hx Lung Surgery: No Hx Breast Surgery: No Hx Breast Biopsy: No Hx Abdominal Surgery: Yes (LEFT INGUINAL HERNIA SX IN YOUNGER YEARS) Hx Appendectomy: No Hx Cholecystectomy: No Hx Genitourinary Surgery: No Hx Section: No Hx Orthopedic Surgery: No Other Surgical History: Hx of fall from height-war, Pt stated had trumatic brain injury, no surgery Anesthesia Reaction: No - PPD History Previous Implant?: Yes (PPD+ HX) Documented Results: Positive w/o proof Results: CXR(-) PPD to be Administered?: No - Reproductive History Patient is a Female of Child Bearing Age (11 -55 yrs old): No (MALE) - Smoking Cessation Smoking history: Current every day smoker Have you smoked in the past 12 months: Yes Aproximately how many cigarettes per day: 10 Cigars Per Day: 0 Hx Chewing Tobacco Use: No Initiated information on smoking cessation: Yes 'Breaking Loose' booklet given: 10/23/16 - Substance & Tx. History Hx Alcohol Use: No (DENIES) Hx Substance Use: Yes (HEROIN) Substance Use Type: Heroin Hx Substance Use Treatment: Yes ([facility]-DETOX) - Substances Abused Heroin Route: Inhalation Frequency: Daily Amount used: 15 bags Age of first use: 32 Date of Last Use: 10/22/16 Family Disease History - Family Disease History Family History: Denies Admission Physical Exam BHS - Vital Signs Vital Signs: Vital Signs - 24 hr 10/23/16 11:04 Temperature 97.8 F Pulse Rate 101 H Respiratory 19 Rate Blood Pressure 146/96 - Physical General Appearance: Yes: Moderate Distress, Irritable, Anxious HEENTM: Yes: EOMI, Normocephalic, ARYAN, Pharynx Normal Respiratory: Yes: Chest Non-Tender, Lungs Clear, Normal Breath Sounds, No Respiratory Distress Neck: Yes: Supple, Trachea in good position Breast: Yes: Breast Exam Deferred Cardiology: Yes: Regular Rhythm, Regular Rate, S1, S2 Abdominal: Yes: Normal Bowel Sounds, Non Tender, Soft Genitourinary: Yes: Other (N/C) Back: Yes: Within Normal Limits Musculoskeletal: Yes: full range of Motion, Gait Steady Extremities: Yes: Normal Range of Motion, Non-Tender Neurological: Yes: manager transport II-XII NML intact, Fully Oriented, Alert, Motor Strength 5/5 Integumentary: Yes: Dry, Warm Lymphatic: Yes: Within Normal Limits - Diagnostic (1) Nicotine dependence Current Visit: Yes Status: Acute Qualifiers: Nicotine product type: cigarettes Substance use status: in withdrawal Qualified Code(s): F17.213 - Nicotine dependence, cigarettes, with withdrawal (2) PTSD (post-traumatic stress disorder) Current Visit: Yes Status: Chronic (3) Opioid dependence with withdrawal Current Visit: Yes Status: Acute (4) History of traumatic brain injury Current Visit: Yes Status: Chronic Cleared for Admission [facility] - Detox or Rehab [facility] Level of Care: Medically Managed Detox Regimen/Protocol: Methadone [facility] Breath Alcohol Content Breath Alcohol Content: 0 Urine Drug Screen - Results Drug Screen Negative: No Urine Drug Screen Results: OPI-Opiates, BZO-Benzodiazepines
[2016-10-23] MEDS ORDERED: IBUPROFEN 400 MG TABLET (FP) PO PRN (13:39)
[2016-10-23] MEDS ORDERED: MAGNESIUM CITRATE 300 ML BOTTLE PO PRN (13:39)
[2016-10-23] MEDS ORDERED: NICOTINE POLACRILEX 2 MG GUM BUC PRN (13:39)
[2016-10-23] MEDS ORDERED: hydrOXYzine PAMOATE 25 MG CAPSULE (FP) PO PRN (13:39)
[2016-10-23] MEDS ORDERED: ACETAMINOPHEN 325 MG TABLET (FP) PO PRN (13:39)
[2016-10-23] MEDS ORDERED: guaiFENesin/D-METHORPHAN HB 10 ML UNIT-DOSE CUPS PO PRN (13:39)
[2016-10-23] MEDS ORDERED: LOPERAMIDE HCL 2 MG CAPSULE PO PRN (13:39)
[2016-10-23] MEDS ORDERED: MAGNESIUM HYDROX 2400MG/30ML ORAL SUSPENSION 30 ML CUP PO PRN (13:39)
[2016-10-23] MEDS ORDERED: MENTHOL/PHENOL 1 EACH UD MM PRN (13:39)
[2016-10-23] MEDS ORDERED: MAG HYDROX/AL HYDROX/SIMETH 30 ML UNIT-DOSE CUP PO PRN (13:39)
[2016-10-23] MEDS ORDERED: P-EPHED 60MG/TRIPROLIDI 2.5MG TABLET PO PRN (13:39)
[2016-10-23] MEDS ORDERED: METHADONE HCL 10 MG TABLET (FOR DETOX USE ONLY) PO ONE ×2 (14:08→23:00)
[2016-10-23] MEDS: diazePAM 5 MG TABLET PO PRN ×3 (14:20→23:00)
[2016-10-23] MEDS: NICOTINE 14 MG/24 HOURS TOPICAL PATCH TD SCH (14:22)
--- NOTE | 2016-10-23 15:05 | EKG ---
Test Reason : Blood Pressure : / mmHG Vent. Rate : 081 BPM Atrial Rate : 081 BPM P-R Int : 132 ms QRS Dur : 084 ms QT Int : 398 ms P-R-T Axes : 075 047 051 degrees QTc Int : 462 ms NORMAL SINUS RHYTHM POSSIBLE LEFT ATRIAL ENLARGEMENT NONSPECIFIC ST ABNORMALITY ABNORMAL ECG WHEN COMPARED WITH ECG OF 17-SEP-2016 15:52, LIKELY NO SIGNIFICANT ECG ABNORMALITIES ARE SEEN Confirmed by MARTINA ÁLVAREZ MD ([id number]) on 10/23/2016 3:05:13 PM Referred By: Confirmed By:MARTINA ÁLVAREZ MD
[2016-10-23 15:30] LABS: HIV 1 & 2 AB NEGATIVE; HIV 1 AGp24 NEGATIVE
[2016-10-23 18:53] LABS: URINE APPEARANCE CLEAR; URINE BILIRUBIN NEGATIVE (NEGATIVE); URINE BLOOD NEGATIVE (NEGATIVE); URINE COLOR YELLOW; URINE GLUCOSE (UA) NEGATIVE (NEGATIVE); URINE KETONE 1+ (NEGATIVE); URINE LEUK ESTERASE NEGATIVE (NEGATIVE); URINE NITRITE NEGATIVE (NEGATIVE); URINE UROBILINOGEN NEGATIVE E.U./dl (0.2-1.0)
[2016-10-23 19:04] LABS: URINE PROTEIN 1+ (NEGATIVE)
[2016-10-23 19:14] LABS: URINE HYALINE CAST 1 /lpf; URINE MUCUS MANY; URINE RBC 1 /hpf (0-3); URINE WBC 1 /hpf (3-5)
[2016-10-23] MEDS: THIAMINE HCL 100 MG TABLET (FP) PO SCH (22:57)
[2016-10-23] MEDS: diphenhydrAMINE HCL 50 MG CAPSULE PO PRN (22:58)
[2016-10-24] MEDS: diazePAM 5 MG TABLET PO PRN ×4 (05:23→22:53)
[2016-10-24] MEDS ORDERED: METHADONE HCL 10 MG TABLET (FOR DETOX USE ONLY) PO ONE (10:00)
[2016-10-24 10:17] LABS: MCHC 33.8 g/dl (32.0-35.9); MEAN CELL VOLUME 97.6 fl (80-96); MEAN PLT VOLUME 9.3 fl (7.5-11.1); PLATELET COUNT 267 K/MM3 (134-434); RDW 14.5 % (11.9-15.9); WHITE BLOOD COUNT 9.3 K/mm3 (4.0-10.0)
[2016-10-24 10:39] LABS: ALBUMIN 4.3 g/dl (3.4-5.0); ALK PHOS 86 U/L (45-117); ANION GAP 13 (8-16); BILIRUBIN,TOTAL 0.4 mg/dL (0.2-1.0); CALCIUM 9.4 mg/dL (8.5-10.1); CO2 24 mmol/L (21-32); COCKROFT - GAULT 95.25; GLUCOSE,RANDOM 126 mg/dL (74-106); SGOT/AST 35 U/L (15-37); SGPT/ALT 30 U/L (12-78); TOT PROT 7.1 g/dl (6.4-8.2)
--- NOTE | 2016-10-24 10:48 | CONSULT ---
[facility] Psychiatric Consult - Data Date of interview: 10/24/16 Admission source: [facility] Identifying data: Readmission to [facility] for this 56 y/o male seeking detox treatment on for alcohol and heroin dependence.Patient is single without children,domiciled and physically disabled (supported on [facility] and [place] pension benefits). Substance Abuse History: - Smoking Cessation. Smoking history: Current every day smoker. Have you smoked in the past 12 months: Yes. Aproximately how many cigarettes per day: 10. Cigars Per Day: 0. Hx Chewing Tobacco Use: No. Initiated information on smoking cessation: Yes. 'Breaking Loose' booklet given : 10/23/16. - Substance & Tx. History. Hx Alcohol Use: No (DENIES). Hx Substance Use: Yes (HEROIN). Substance Use Type: Heroin. Hx Substance Use Treatment: Yes ([facility]-DETOX). - Substances Abused. Heroin. Route: Inhalation. Frequency: Daily. Amount used: 15 bags. Age of first use: 32. Date of Last Use: 10/22/16. Cofirmed by patient. Medical History: No changes : low back pain,traumatic brain injury and left inguinal herniorraphy. 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 Physical/Sexual Abuse/Trauma History: Patient denies history of sexual abuse.Still traumatized by his war experiences in [facility]. Additional Comment: Urine Drug Screen Results: OPI-Opiates, BZO- Benzodiazepines.Noted. Mental Status Exam - Mental Status Exam Alert and Oriented to: Time, Place, Person Cognitive Function: Good Patient Appearance: Well Groomed Mood: Withdrawn, Anxious Affect: Mood Congruent Patient Behavior: Fatigued, Appropriate, Cooperative Speech Pattern: Clear Voice Loudness: Normal Thought Process: Goal Oriented Thought Disorder: Not Present Hallucinations: Denies Suicidal Ideation: Denies Homicidal Ideation: Denies Insight/Judgement: Poor Sleep: Poorly, Difficulty falling asleep Appetite: Good Muscle strength/Tone: Normal Gait/Station: Normal Psychiatric Findings - Problem List ([place] 1, 2,3) (1) Nicotine dependence Current Visit: Yes Status: Acute Qualifiers: Nicotine product type: cigarettes Substance use status: in withdrawal Qualified Code(s): F17.213 - Nicotine dependence, cigarettes, with withdrawal (2) Opioid dependence with withdrawal Current Visit: Yes Status: Acute (3) PTSD (post-traumatic stress disorder) Current Visit: Yes Status: Chronic (4) MDD (major depressive disorder) Current Visit: Yes Status: Chronic (5) Substance induced mood disorder Current Visit: Yes Status: Acute (6) History of traumatic brain injury Current Visit: Yes Status: Chronic (7) Acute low back pain Current Visit: Yes Status: Chronic (8) PPD positive Current Visit: Yes Status: Chronic (9) Insomnia Current Visit: Yes Status: Chronic - Initial Treatment Plan Initial Treatment Plan: Previous records are reviewed.Psychoeducation.Detoxification.Medications : remeron 15 mg po hs + prazosin 1 mg po hs.Side effects/benefits discussed with patient.He agrees with this careplan.Observation.
[2016-10-24] MEDS: PRENATAL VITAMINS W/ FOLIC ACID TABLET (FP) PO SCH (10:50)
[2016-10-24] MEDS: NICOTINE 14 MG/24 HOURS TOPICAL PATCH TD SCH (10:50)
--- NOTE | 2016-10-24 11:55 | PN ---
BHS COWS - Scale Resting Pulse: 0= [place] 80 or Below Sweatin= Chills/Flushing Restless Observation: 3= Extraneous Movement Pupil Size: 2= Moderately Dilated Bone or Joint Aches: 4=Acute Joint/Muscle Pain Runny Nose/ Eye Tearin= Nasal Congestion GI Upset > 30mins: 1= Stomach Cramp Tremor Observation of Outstretched Hands: 2= Slight Tremor Visible Yawning Observation: 1= 1-2x During Session Anxiety or Irritability: 2=Irritable/Anxious Goose Flesh Skin: 0=Smooth Skin COWS Score: 17 BHS Progress Note (SOAP) Subjective: ANXIETY,IRRITABILITY,INTERMITTENT SLEEP. Objective: 10/24/16 11:54 Vital Signs Temperature 96.6 F L 10/24/16 09:40 Pulse Rate 61 10/24/16 09:40 Respiratory Rate 18 10/24/16 09:40 Blood Pressure 102/67 10/24/16 09:40 O2 Sat by Pulse Oximetry (%) Laboratory Last Values WBC 9.3 K/mm3 (4.0-10.0) D 10/24/16 06:00 RBC 4.38 M/mm3 (4.00-5.60) 10/24/16 06:00 Hgb 14.5 GM/dL (11.7-16.9) 10/24/16 06:00 Hct 42.8 % (35.4-49) 10/24/16 06:00 MCV 97.6 fl (80-96) H 10/24/16 06:00 MCHC 33.8 g/dl (32.0-35.9) 10/24/16 06:00 RDW 14.5 % (11.9-15.9) D 10/24/16 06:00 Plt Count 267 K/MM3 (134-434) D 10/24/16 06:00 MPV 9.3 fl (7.5-11.1) 10/24/16 06:00 Sodium 144 mmol/L (136-145) 10/24/16 06:00 Potassium 4.3 mmol/L (3.5-5.1) 10/24/16 06:00 Chloride 107 mmol/L (98-107) 10/24/16 06:00 Carbon Dioxide 24 mmol/L (21-32) 10/24/16 06:00 Anion Gap 13 (8-16) 10/24/16 06:00 BUN 15 mg/dL (7-18) 10/24/16 06:00 Creatinine 1.0 mg/dL (0.7-1.3) D 10/24/16 06:00 Creat Clearance w eGFR > 60 (>60) 10/24/16 06:00 Random Glucose 126 mg/dL (74-106) H 10/24/16 06:00 Calcium 9.4 mg/dL (8.5-10.1) 10/24/16 06:00 Total Bilirubin 0.4 mg/dL (0.2-1.0) 10/24/16 06:00 AST 35 U/L (15-37) D 10/24/16 06:00 ALT 30 U/L (12-78) D 10/24/16 06:00 Alkaline Phosphatase 86 U/L (45-117) 10/24/16 06:00 Total Protein 7.1 g/dl (6.4-8.2) 10/24/16 06:00 Albumin 4.3 g/dl (3.4-5.0) 10/24/16 06:00 Urine Color Yellow 10/23/16 15:00 Urine Appearance Clear 10/23/16 15:00 Urine pH 6.0 (5.0-8.0) 10/23/16 15:00 Ur Specific [place] 1.020 (1.005-1.025) 10/23/16 15:00 Urine Protein 1+ (NEGATIVE) H 10/23/16 15:00 Urine Glucose (UA) Negative (NEGATIVE) 10/23/16 15:00 Urine Ketones 1+ (NEGATIVE) H 10/23/16 15:00 Urine Blood Negative (NEGATIVE) 10/23/16 15:00 Urine Nitrite Negative (NEGATIVE) 10/23/16 15:00 Urine Bilirubin Negative (NEGATIVE) 10/23/16 15:00 Urine Urobilinogen Negative E.U./dl (0.2-1.0) 10/23/16 15:00 Ur Leukocyte Esterase Negative (NEGATIVE) 10/23/16 15:00 Urine RBC 1 /hpf (0-3) 10/23/16 15:00 Urine WBC 1 /hpf (3-5) 10/23/16 15:00 Ur Epithelial Cells Rare /hpf (FEW) 10/23/16 15:00 Hyaline Casts 1 /lpf 10/23/16 15:00 Urine Mucus Many 10/23/16 15:00 RPR Titer Nonreactive (NONREACTIVE) 10/24/16 06:00 HIV 1&2 Antibody Screen Negative 10/23/16 12:40 HIV P24 Antigen Negative 10/23/16 12:40 Assessment: 10/24/16 11:55 WITHDRAWAL SX Plan: CONTINUE DETOX
[2016-10-24] MEDS: THIAMINE HCL 100 MG TABLET (FP) PO SCH (22:50)
[2016-10-24] MEDS: PRAZOSIN HCL 1 MG CAPSULE PO SCH (22:50)
[2016-10-24] MEDS: MIRTAZAPINE 15 MG TABLET (FP) PO SCH (22:50)
[2016-10-25] MEDS: diazePAM 5 MG TABLET PO PRN ×4 (05:36→23:05)
[2016-10-25] MEDS ORDERED: METHADONE HCL 5 MG TABLET (FOR DETOX USE ONLY) PO ONE (10:00)
[2016-10-25] MEDS: PRENATAL VITAMINS W/ FOLIC ACID TABLET (FP) PO SCH (10:48)
[2016-10-25] MEDS: NICOTINE 14 MG/24 HOURS TOPICAL PATCH TD SCH (10:48)
--- NOTE | 2016-10-25 12:18 | PN ---
BHS COWS - Scale Resting Pulse: 1= [place] 81-100 Sweatin= Chills/Flushing Restless Observation: 3= Extraneous Movement Pupil Size: 2= Moderately Dilated Bone or Joint Aches: 4=Acute Joint/Muscle Pain Runny Nose/ Eye Tearin= Nasal Congestion GI Upset > 30mins: 0= None Tremor Observation of Outstretched Hands: 1= Tremor [place], Not Seen Yawning Observation: 0= None Anxiety or Irritability: 1=Feels Anxious/Irritable Goose Flesh Skin: 0=Smooth Skin COWS Score: 14 BHS Progress Note (SOAP) Subjective: ANXIETY,SWEATS,"BETTER SLEEP" LAST NIGHT WITH SOUND BLOCKING AID. Objective: 10/25/16 12:16 Vital Signs Temperature 95.3 F L 10/25/16 09:31 Pulse Rate 80 10/25/16 09:31 Respiratory Rate 18 10/25/16 09:31 Blood Pressure 113/80 10/25/16 09:31 O2 Sat by Pulse Oximetry (%) Laboratory Last Values WBC 9.3 K/mm3 (4.0-10.0) D 10/24/16 06:00 RBC 4.38 M/mm3 (4.00-5.60) 10/24/16 06:00 Hgb 14.5 GM/dL (11.7-16.9) 10/24/16 06:00 Hct 42.8 % (35.4-49) 10/24/16 06:00 MCV 97.6 fl (80-96) H 10/24/16 06:00 MCHC 33.8 g/dl (32.0-35.9) 10/24/16 06:00 RDW 14.5 % (11.9-15.9) D 10/24/16 06:00 Plt Count 267 K/MM3 (134-434) D 10/24/16 06:00 MPV 9.3 fl (7.5-11.1) 10/24/16 06:00 Sodium 144 mmol/L (136-145) 10/24/16 06:00 Potassium 4.3 mmol/L (3.5-5.1) 10/24/16 06:00 Chloride 107 mmol/L (98-107) 10/24/16 06:00 Carbon Dioxide 24 mmol/L (21-32) 10/24/16 06:00 Anion Gap 13 (8-16) 10/24/16 06:00 BUN 15 mg/dL (7-18) 10/24/16 06:00 Creatinine 1.0 mg/dL (0.7-1.3) D 10/24/16 06:00 Creat Clearance w eGFR > 60 (>60) 10/24/16 06:00 Random Glucose 126 mg/dL (74-106) H 10/24/16 06:00 Calcium 9.4 mg/dL (8.5-10.1) 10/24/16 06:00 Total Bilirubin 0.4 mg/dL (0.2-1.0) 10/24/16 06:00 AST 35 U/L (15-37) D 10/24/16 06:00 ALT 30 U/L (12-78) D 10/24/16 06:00 Alkaline Phosphatase 86 U/L (45-117) 10/24/16 06:00 Total Protein 7.1 g/dl (6.4-8.2) 10/24/16 06:00 Albumin 4.3 g/dl (3.4-5.0) 10/24/16 06:00 Urine Color Yellow 10/23/16 15:00 Urine Appearance Clear 10/23/16 15:00 Urine pH 6.0 (5.0-8.0) 10/23/16 15:00 Ur Specific [place] 1.020 (1.005-1.025) 10/23/16 15:00 Urine Protein 1+ (NEGATIVE) H 10/23/16 15:00 Urine Glucose (UA) Negative (NEGATIVE) 10/23/16 15:00 Urine Ketones 1+ (NEGATIVE) H 10/23/16 15:00 Urine Blood Negative (NEGATIVE) 10/23/16 15:00 Urine Nitrite Negative (NEGATIVE) 10/23/16 15:00 Urine Bilirubin Negative (NEGATIVE) 10/23/16 15:00 Urine Urobilinogen Negative E.U./dl (0.2-1.0) 10/23/16 15:00 Ur Leukocyte Esterase Negative (NEGATIVE) 10/23/16 15:00 Urine RBC 1 /hpf (0-3) 10/23/16 15:00 Urine WBC 1 /hpf (3-5) 10/23/16 15:00 Ur Epithelial Cells Rare /hpf (FEW) 10/23/16 15:00 Hyaline Casts 1 /lpf 10/23/16 15:00 Urine Mucus Many 10/23/16 15:00 RPR Titer Nonreactive (NONREACTIVE) 10/24/16 06:00 HIV 1&2 Antibody Screen Negative 10/23/16 12:40 HIV P24 Antigen Negative 10/23/16 12:40 Assessment: 10/25/16 12:17 WITHDRAWAL SX Plan: CONTINUE DETOX
[2016-10-25] MEDS: PRAZOSIN HCL 1 MG CAPSULE PO SCH (23:03)
[2016-10-25] MEDS: MIRTAZAPINE 15 MG TABLET (FP) PO SCH (23:03)
[2016-10-25] MEDS: THIAMINE HCL 100 MG TABLET (FP) PO SCH (23:03)
[2016-10-26] MEDS ORDERED: METHADONE HCL 5 MG TABLET (FOR DETOX USE ONLY) PO ONE (10:00)
[2016-10-26] MEDS: PRENATAL VITAMINS W/ FOLIC ACID TABLET (FP) PO SCH (10:40)
[2016-10-26] MEDS: diazePAM 5 MG TABLET PO PRN (10:40)
[2016-10-26] MEDS: NICOTINE 14 MG/24 HOURS TOPICAL PATCH TD SCH (11:12)
--- NOTE | 2016-10-26 12:27 | PN ---
BHS Progress Note (SOAP) Subjective: RESPONDING WELL TO DETOX TREATMENT. ALERT O X 3. Objective: 10/26/16 12:27 Vital Signs Temperature 97.4 F L 10/26/16 10:32 Pulse Rate 93 H 10/26/16 10:32 Respiratory Rate 18 10/26/16 10:32 Blood Pressure 95/64 10/26/16 10:32 O2 Sat by Pulse Oximetry (%) Assessment: 10/26/16 12:27 WITHDRAWAL SX Plan: CONTINUE DETOX INCREASE PO FLUIDS
[2016-10-26] MEDS: PRAZOSIN HCL 1 MG CAPSULE PO SCH (22:53)
[2016-10-26] MEDS: MIRTAZAPINE 15 MG TABLET (FP) PO SCH (22:53)
[2016-10-26] MEDS: THIAMINE HCL 100 MG TABLET (FP) PO SCH (22:53)
[2016-10-27] MEDS ORDERED: METHADONE HCL 10 MG TABLET (FOR DETOX USE ONLY) PO ONE (10:00)
[2016-10-27] MEDS: NICOTINE 14 MG/24 HOURS TOPICAL PATCH TD SCH (10:58)
[2016-10-27] MEDS: PRENATAL VITAMINS W/ FOLIC ACID TABLET (FP) PO SCH (10:58)
--- NOTE | 2016-10-27 16:43 | PN ---
BHS Progress Note (SOAP) Subjective: Stomach Cramping, Interrupted Sleep, Sweating. Objective: PT. A & O X 3, OBSERVED AMBULATING ON UNIT. 10/27/16 16:42 Vital Signs Temperature 97.6 F 10/27/16 13:28 Pulse Rate 83 10/27/16 13:28 Respiratory Rate 20 10/27/16 13:28 Blood Pressure 109/71 10/27/16 13:28 O2 Sat by Pulse Oximetry (%) Laboratory Last Values WBC 9.3 K/mm3 (4.0-10.0) D 10/24/16 06:00 RBC 4.38 M/mm3 (4.00-5.60) 10/24/16 06:00 Hgb 14.5 GM/dL (11.7-16.9) 10/24/16 06:00 Hct 42.8 % (35.4-49) 10/24/16 06:00 MCV 97.6 fl (80-96) H 10/24/16 06:00 MCHC 33.8 g/dl (32.0-35.9) 10/24/16 06:00 RDW 14.5 % (11.9-15.9) D 10/24/16 06:00 Plt Count 267 K/MM3 (134-434) D 10/24/16 06:00 MPV 9.3 fl (7.5-11.1) 10/24/16 06:00 Sodium 144 mmol/L (136-145) 10/24/16 06:00 Potassium 4.3 mmol/L (3.5-5.1) 10/24/16 06:00 Chloride 107 mmol/L (98-107) 10/24/16 06:00 Carbon Dioxide 24 mmol/L (21-32) 10/24/16 06:00 Anion Gap 13 (8-16) 10/24/16 06:00 BUN 15 mg/dL (7-18) 10/24/16 06:00 Creatinine 1.0 mg/dL (0.7-1.3) D 10/24/16 06:00 Creat Clearance w eGFR > 60 (>60) 10/24/16 06:00 Random Glucose 126 mg/dL (74-106) H 10/24/16 06:00 Calcium 9.4 mg/dL (8.5-10.1) 10/24/16 06:00 Total Bilirubin 0.4 mg/dL (0.2-1.0) 10/24/16 06:00 AST 35 U/L (15-37) D 10/24/16 06:00 ALT 30 U/L (12-78) D 10/24/16 06:00 Alkaline Phosphatase 86 U/L (45-117) 10/24/16 06:00 Total Protein 7.1 g/dl (6.4-8.2) 10/24/16 06:00 Albumin 4.3 g/dl (3.4-5.0) 10/24/16 06:00 Urine Color Yellow 10/23/16 15:00 Urine Appearance Clear 10/23/16 15:00 Urine pH 6.0 (5.0-8.0) 10/23/16 15:00 Ur Specific [place] 1.020 (1.005-1.025) 10/23/16 15:00 Urine Protein 1+ (NEGATIVE) H 10/23/16 15:00 Urine Glucose (UA) Negative (NEGATIVE) 10/23/16 15:00 Urine Ketones 1+ (NEGATIVE) H 10/23/16 15:00 Urine Blood Negative (NEGATIVE) 10/23/16 15:00 Urine Nitrite Negative (NEGATIVE) 10/23/16 15:00 Urine Bilirubin Negative (NEGATIVE) 10/23/16 15:00 Urine Urobilinogen Negative E.U./dl (0.2-1.0) 10/23/16 15:00 Ur Leukocyte Esterase Negative (NEGATIVE) 10/23/16 15:00 Urine RBC 1 /hpf (0-3) 10/23/16 15:00 Urine WBC 1 /hpf (3-5) 10/23/16 15:00 Ur Epithelial Cells Rare /hpf (FEW) 10/23/16 15:00 Hyaline Casts 1 /lpf 10/23/16 15:00 Urine Mucus Many 10/23/16 15:00 RPR Titer Nonreactive (NONREACTIVE) 10/24/16 06:00 HIV 1&2 Antibody Screen Negative 10/23/16 12:40 HIV P24 Antigen Negative 10/23/16 12:40 LABS NOTED. Assessment: 10/27/16 16:42 WITHDRAWAL SYMPTOMS. Plan: CONTINUE DETOX. ADVISED PATIENT TO FOLLOW-UP WITH BUSINESS CONTROL SPECIALIST AFTER DISCHARGE FROM DETOX FOR GENERAL MEDICAL ASSESSMENT AND FOR ABNORMAL ADMISSION LAB VALUES.
[2016-10-27] MEDS: MIRTAZAPINE 15 MG TABLET (FP) PO SCH (22:47)
[2016-10-27] MEDS: PRAZOSIN HCL 1 MG CAPSULE PO SCH (22:47)
[2016-10-27] MEDS: THIAMINE HCL 100 MG TABLET (FP) PO SCH (22:48)
[2016-10-27] MEDS: diphenhydrAMINE HCL 50 MG CAPSULE PO PRN (22:48)
[2016-10-28] MEDS ORDERED: METHADONE HCL 5 MG TABLET (FOR DETOX USE ONLY) PO ONE (06:00)
[2016-10-28 06:44] VITALS: BP 117/77; PULSE 89; TEMP 97.3
--- NOTE | 2016-10-28 16:07 | DS ---
[facility] Detox Discharge Summary Admission Date: 10/23/16 Discharge Date: 10/28/16 - History Present History: Opioid Dependence Additional Comments: ADVISED PATIENT TO FOLLOW-UP WITH ONBOARDING SPECIALIST AFTER DISCHARGE FROM DETOX FOR GENERAL MEDICAL ASSESSMENT AND FOR ABNORMAL ADMISSION LAB VALUES. Pertinent Past History: PTSD, Depression, History of Positive PPD, History of Traumatic Brain Injury. - Physical Exam Results Vital Signs: Vital Signs Temperature 97.3 F L 10/28/16 06:43 Pulse Rate 89 10/28/16 06:43 Respiratory Rate 18 10/28/16 06:43 Blood Pressure 117/77 10/28/16 06:43 O2 Sat by Pulse Oximetry (%) Pertinent Admission Physical Exam Findings: WITHDRAWAL SYMPTOMS. Laboratory Last Values WBC 9.3 K/mm3 (4.0-10.0) D 10/24/16 06:00 RBC 4.38 M/mm3 (4.00-5.60) 10/24/16 06:00 Hgb 14.5 GM/dL (11.7-16.9) 10/24/16 06:00 Hct 42.8 % (35.4-49) 10/24/16 06:00 MCV 97.6 fl (80-96) H 10/24/16 06:00 MCHC 33.8 g/dl (32.0-35.9) 10/24/16 06:00 RDW 14.5 % (11.9-15.9) D 10/24/16 06:00 Plt Count 267 K/MM3 (134-434) D 10/24/16 06:00 MPV 9.3 fl (7.5-11.1) 10/24/16 06:00 Sodium 144 mmol/L (136-145) 10/24/16 06:00 Potassium 4.3 mmol/L (3.5-5.1) 10/24/16 06:00 Chloride 107 mmol/L (98-107) 10/24/16 06:00 Carbon Dioxide 24 mmol/L (21-32) 10/24/16 06:00 Anion Gap 13 (8-16) 10/24/16 06:00 BUN 15 mg/dL (7-18) 10/24/16 06:00 Creatinine 1.0 mg/dL (0.7-1.3) D 10/24/16 06:00 Creat Clearance w eGFR > 60 (>60) 10/24/16 06:00 Random Glucose 126 mg/dL (74-106) H 10/24/16 06:00 Calcium 9.4 mg/dL (8.5-10.1) 10/24/16 06:00 Total Bilirubin 0.4 mg/dL (0.2-1.0) 10/24/16 06:00 AST 35 U/L (15-37) D 10/24/16 06:00 ALT 30 U/L (12-78) D 10/24/16 06:00 Alkaline Phosphatase 86 U/L (45-117) 10/24/16 06:00 Total Protein 7.1 g/dl (6.4-8.2) 10/24/16 06:00 Albumin 4.3 g/dl (3.4-5.0) 10/24/16 06:00 Urine Color Yellow 10/23/16 15:00 Urine Appearance Clear 10/23/16 15:00 Urine pH 6.0 (5.0-8.0) 10/23/16 15:00 Ur Specific [place] 1.020 (1.005-1.025) 10/23/16 15:00 Urine Protein 1+ (NEGATIVE) H 10/23/16 15:00 Urine Glucose (UA) Negative (NEGATIVE) 10/23/16 15:00 Urine Ketones 1+ (NEGATIVE) H 10/23/16 15:00 Urine Blood Negative (NEGATIVE) 10/23/16 15:00 Urine Nitrite Negative (NEGATIVE) 10/23/16 15:00 Urine Bilirubin Negative (NEGATIVE) 10/23/16 15:00 Urine Urobilinogen Negative E.U./dl (0.2-1.0) 10/23/16 15:00 Ur Leukocyte Esterase Negative (NEGATIVE) 10/23/16 15:00 Urine RBC 1 /hpf (0-3) 10/23/16 15:00 Urine WBC 1 /hpf (3-5) 10/23/16 15:00 Ur Epithelial Cells Rare /hpf (FEW) 10/23/16 15:00 Hyaline Casts 1 /lpf 10/23/16 15:00 Urine Mucus Many 10/23/16 15:00 RPR Titer Nonreactive (NONREACTIVE) 10/24/16 06:00 HIV 1&2 Antibody Screen Negative 10/23/16 12:40 HIV P24 Antigen Negative 10/23/16 12:40 LABS NOTED. - Treatment Hospital Course: Detox Protocol Followed, Detoxed Safely, Responded well, Discharged Condition Good Patient has Accepted a Rehab Referral to: YES - PATIENT WILL GO TO [facility]. - Medication Discharge Medications: Ambulatory Orders Mirtazapine [Remeron -] 15 mg PO HS 09/22/16 Prazosin HCl [Minipress] 1 mg PO HS 09/22/16 Mirtazapine [Remeron -] 15 mg PO HS #30 tablet 10/24/16 Prazosin HCl 1 mg PO HS #30 capsule 10/24/16 - Diagnosis (1) Nicotine dependence Status: Chronic Qualifiers: Nicotine product type: cigarettes Substance use status: in withdrawal Qualified Code(s): F17.213 - Nicotine dependence, cigarettes, with withdrawal (2) Opioid dependence with withdrawal Status: Acute (3) Substance induced mood disorder Status: Acute (4) History of traumatic brain injury Status: Chronic (5) Insomnia Status: Chronic Qualifiers: Insomnia type: unspecified Qualified Code(s): G47.00 - Insomnia, unspecified (6) MDD (major depressive disorder) Status: Chronic Qualifiers: Major depression recurrence: recurrent Active/Remission status: remission status unspecified Qualified Code(s): F33.9 - Major depressive disorder, recurrent, unspecified (7) PTSD (post-traumatic stress disorder) Status: Chronic - AMA Did Patient Leave Against Medical Advice: No
== END 2016-10-28 08:54 | disposition home or self-care (01) | DRG 773 ==
LOC: YASAS 10:37 → Y3N 13:21
PROVIDERS: ADMIT Internal Medicine Addiction Medicine; ATTEND Internal Medicine Addiction Medicine
PROC: HZ2ZZZZ Detoxification Services for Substance Abuse Treatment (ICD-10-PCS; principal; 2016-10-28)
DX: F11.23 Opioid dependence with withdrawal (principal); F17.213 Nicotine dependence, cigarettes, with withdrawal; F19.24 Other psychoactive substance dependence with psychoactive substance-induced mood disorder; F43.10 Post-traumatic stress disorder, unspecified; F33.9 Major depressive disorder, recurrent, unspecified; M54.5 Low back pain; G89.29 Other chronic pain; R76.11 Nonspecific reaction to tuberculin skin test without active tuberculosis; Z87.820 Personal history of traumatic brain injury
CPT/HCPCS: 36415; 80053; 81003; 81015; 85027; 86593; 87389; 93005; 93010

== ENCOUNTER 2017-08-22 11:58 | Inpatient (IN) | payer OTHER ==
[2017-08-22 15:24] VITALS: BMI 27.6
--- NOTE | 2017-08-22 15:45 | HP ---
COWS - Scale Resting Pulse: 1= [place] 81-100 Sweatin=Flushed/Facial Moisture Restless Observation: 1= Difficult to Sit Still Pupil Size: 0= Normal to Room Light Bone or Joint Aches: 4=Acute Joint/Muscle Pain Runny Nose/ Eye Tearin= Runny Nose/Eyes GI Upset > 30mins: 1= Stomach Cramp Tremor Observation: 2= Slight Tremor Visible Yawning Observation: 1= 1-2x During Session Anxiety or Irritability: 2=Irritable/Anxious Goose Flesh Skin: 0=Smooth Skin COWS Score: 16 Admission ROS [facility] Chief Complaint: "I do not want my Heroin addiction to get to where it was before." Patient is here to Detox from Heroin. Allergies/Adverse Reactions: Allergies Allergy/AdvReac Type Severity Reaction Status Date / Time Fish Containing Products Allergy Severe Rash Verified 08/22/17 15:33 gabapentin [From Neurontin] Allergy Severe Depression Verified 08/22/17 15:34 pregabalin [From Lyrica] AdvReac Severe Depression Verified 08/22/17 15:35 TRAZADONE AdvReac Severe Swelling Uncoded 08/22/17 15:35 History of Present Illness: Patient is a 56 YO male here to Detox from Heroin. Patient has had several previous Detox admissions at [facility] (Last: 10/2016). Patient had a rehab admission at [facility] in 04/2017. Longest Period of non-drug use in recent years: approx. 90 days (04/2017 - 07/2017). Exam Limitations: No Limitations - Ebola screening Have you traveled outside of the country in the last 21 days: No (N) Have you had contact with anyone from an Ebola affected area: No Have you been sick,other than usual withdrawal symptoms: No Do you have a fever: No - Review of Systems Constitutional: Chills, Diaphoresis, Fever, Loss of Appetite, Malaise, Night Sweats, Changes in sleep EENT: reports: Hearing Loss, Tinnitus, Nose Congestion, Sinus Pressure Respiratory: reports: Cough, Shortness of Breath Cardiac: reports: Palpitations GI: reports: Constipated, Nausea, Abdominal cramping : reports: No Symptoms Reported Musculoskeletal: reports: Back Pain, Joint Pain, Muscle Pain, Neck Pain, Joint Stiffness Integumentary: reports: Pruritus (On bilateral forearms. Patient denies any known recent contact with any unusual surfaces.) Neuro: reports: Headache (Chronic migraines.), Numbness (Right Hand, Left Foot.) , Seizure (Due to Traumatic brain Injury; Last episode: approx. 1 year ago.), Tingling (Right Hand, Left Foot.), Tremors Endocrine: reports: No Symptoms Reported Hematology: reports: No Symptoms Reported Psychiatric: reports: Judgement Intact, Mood/Affect Appropiate, Anxious, Depressed (On meds. in past, stopped on his own due to drug use approx. 2 months ago.), Disorientated (To Current Day / Date.) Other Systems: Reviewed and Negative Patient History - Patient Medical History Hx Anemia: No Hx Asthma: No Hx Chronic Obstructive Pulmonary Disease (COPD): No Hx Cancer: No Hx Cardiac Disorders: No Hx Congestive Heart Failure: No Hx Hypertension: No Hx Hypercholesterolemia: No Hx Pacemaker: No HX Cerebrovascular Accident: No Hx Seizures: Yes (Due To Traumatic Brain Injury, Last spisode: 11/2015.) Hx Dementia: No Hx Diabetes: No Hx Gastrointestinal Disorders: No Hx Liver Disease: No Hx Genitourinary Disorders: No Hx Sexually Transmitted Disorders: No Hx Renal Disease (ESRD): No Hx Thyroid Disease: No Hx Human Immunodeficiency Virus (HIV): No (Last tested: 10/2016: NEGATIVE.) Hx Hepatitis C: No (Last tested: 10/2016: NEGATIVE.) Hx Depression: Yes (Meds. in past, none currently.) Hx Suicide Attempt: No (PATIENT DENIES CURRENT SI / HI.) Hx Bipolar Disorder: No Hx Schizophrenia: No Other Medical History: NIGHTMARES/PTSD; Took Prazosin in past; not currently. - Patient Surgical History Past Surgical History: Yes Hx Neurologic Surgery: No Hx Cataract Extraction: No Hx Cardiac Surgery: No Hx Lung Surgery: No Hx Breast Surgery: No Hx Breast Biopsy: No Hx Abdominal Surgery: Yes (LEFT INGUINAL HERNIA SX DURING CHILDHOOD.) Hx Appendectomy: No Hx Cholecystectomy: No Hx Genitourinary Surgery: No Hx Section: No Hx Orthopedic Surgery: No Other Surgical History: Hx of fall from height-war, Pt stated had trumatic brain injury, no surgery Anesthesia Reaction: No - PPD History Previous Implant?: Yes Documented Results: Positive w/o proof (Completed course of antibiotic therapy, 1992.) Implanted On Prior [facility] Admission?: No Results: CXR,04/2016 Neg PPD to be Administered?: No - Reproductive History Patient is a Female of Child Bearing Age (11 -55 yrs old): No (PATIENT IS MALE.) - Smoking Cessation Smoking history: Current every day smoker Have you smoked in the past 12 months: Yes Aproximately how many cigarettes per day: 20 Cigars Per Day: 0 Hx Chewing Tobacco Use: No Initiated information on smoking cessation: Yes 'Breaking Loose' booklet given: 08/22/17 (GIVEN TO PATIENT.) - Substance & Tx. History Hx Alcohol Use: Yes Hx Substance Use: Yes Substance Use Type: Alcohol, Cocaine, Heroin Hx Substance Use Treatment: Yes (Previous Detox admissions at [facility] (Last: 2016).) - Substances Abused Heroin Route: Inhalation Frequency: Daily Amount used: 15 - 20 Bags. Age of first use: 32 Date of Last Use: 08/22/17 Cocaine Route: Inhalation Frequency: 3-6 times per week Amount used: $ 50. Age of first use: 25 Date of Last Use: 08/19/17 Alcohol Route: Oral Frequency: 3-6 times per week Amount used: 1/2 Bottle Vodka (06/21); 2 - 25 oz Beers. Age of first use: 14 Date of Last Use: 08/21/17 Family Disease History - Family Disease History Family Disease History: Diabetes: Father (OK; .), Heart Disease: Father , Other: Mother (.) Admission Physical Exam [facility] - Vital Signs Vital Signs: Vital Signs - 24 hr 08/22/17 15:23 Temperature 97.6 F Pulse Rate 82 Respiratory 20 Rate Blood Pressure 157/95 - Physical General Appearance: Yes: No Apparent Distress, Nourished, Appropriately Dressed , Tremorous, Anxious HEENTM: Yes: Hearing grossly Normal, Normocephalic, Normal Voice, ARYAN, Pharynx Normal Respiratory: Yes: Chest Non-Tender, Lungs Clear, No Respiratory Distress, No Accessory Muscle Use Neck: Yes: No masses,lesions,Nodules, Supple, Trachea in good position Breast: Yes: Breast Exam Deferred Cardiology: Yes: Regular Rhythm, Regular Rate, S1, S2 Abdominal: Yes: Normal Bowel Sounds, Non Tender, Flat, Soft Genitourinary: Yes: Within Normal Limits Back: Yes: CVA Tenderness, Decreased Range of Motion Musculoskeletal: Yes: Gait Steady, Back pain, Muscle Pain Extremities: Yes: Normal Capillary Refill, Normal Range of Motion, Tremors Neurological: Yes: Alert, Normal Mood/Affect, Normal Response, Disoriented (To Current Day / Date.) Integumentary: Yes: Normal Color, Dry, Warm, Other ([place] noted on bilateral forearms (patient reporting pruritus as withdrawal symptom). No signs of infection noted at affected sites.) Lymphatic: Yes: Within Normal Limits Cleared for Admission [facility] - Detox or Rehab [facility] Level of Care: Medically Managed Detox Regimen/Protocol: Methadone [facility] Breath Alcohol Content Breath Alcohol Content: 0 Urine Drug Screen - Results Drug Screen Negative: No Urine Drug Screen Results: AILEEN-Cocaine, OPI-Opiates, OXY-Oxycodone
[2017-08-22] MEDS ORDERED: MAG HYDROX/AL HYDROX/SIMETH 30 ML UNIT-DOSE CUP PO PRN (16:18)
[2017-08-22] MEDS ORDERED: IBUPROFEN 400 MG TABLET (FP) PO PRN (16:18)
[2017-08-22] MEDS ORDERED: MAGNESIUM HYDROX 2400MG/30ML ORAL SUSPENSION 30 ML CUP PO PRN (16:18)
[2017-08-22] MEDS ORDERED: MENTHOL/PHENOL 1 EACH UD MM PRN (16:18)
[2017-08-22] MEDS ORDERED: METHADONE HCL 10 MG TABLET (FOR DETOX USE ONLY) PO ONE ×2 (16:18→23:00)
[2017-08-22] MEDS ORDERED: LOPERAMIDE HCL 2 MG CAPSULE PO PRN (16:18)
[2017-08-22] MEDS ORDERED: ACETAMINOPHEN 325 MG TABLET (FP) PO PRN (16:18)
[2017-08-22] MEDS ORDERED: MAGNESIUM CITRATE 300 ML BOTTLE PO PRN (16:18)
[2017-08-22] MEDS ORDERED: P-EPHED 60MG/TRIPROLIDI 2.5MG TABLET PO PRN (16:18)
[2017-08-22] MEDS ORDERED: guaiFENesin/D-METHORPHAN HB 10 ML UNIT-DOSE CUPS PO PRN (16:18)
[2017-08-22] MEDS ORDERED: diphenhydrAMINE HCL 25 MG CAPSULE (FP) PO ONE (16:21)
[2017-08-22] MEDS ORDERED: METHADONE HCL 10 MG TABLET (FOR DETOX USE ONLY) ONE (19:38)
[2017-08-22] MEDS: diazePAM 5 MG TABLET PO PRN (19:47)
[2017-08-22 21:08] LABS: URINE APPEARANCE CLEAR; URINE BILIRUBIN NEGATIVE (NEGATIVE); URINE BLOOD NEGATIVE (NEGATIVE); URINE COLOR YELLOW; URINE GLUCOSE (UA) NEGATIVE (NEGATIVE); URINE KETONE 1+ (NEGATIVE); URINE LEUK ESTERASE NEGATIVE (NEGATIVE); URINE NITRITE NEGATIVE (NEGATIVE); URINE PROTEIN NEGATIVE (NEGATIVE)
[2017-08-22] MEDS: THIAMINE HCL 100 MG TABLET (FP) PO SCH (22:08)
--- NOTE | 2017-08-23 08:42 | EKG ---
Test Reason : Blood Pressure : / mmHG Vent. Rate : 083 BPM Atrial Rate : 083 BPM P-R Int : 138 ms QRS Dur : 088 ms QT Int : 368 ms P-R-T Axes : 075 039 031 degrees QTc Int : 432 ms NORMAL SINUS RHYTHM POSSIBLE LEFT ATRIAL ENLARGEMENT BORDERLINE ECG WHEN COMPARED WITH ECG OF 23-OCT-2016 13:22, T WAVE AMPLITUDE HAS DECREASED IN ANTEROLATERAL LEADS Confirmed by TRUMAN HERMOSILLO, AMPARO ([id number]) on 08/23/2017 8:42:40 AM Referred By: Confirmed By:AMPARO LAUGHLIN MD
[2017-08-23] MEDS ORDERED: METHADONE HCL 10 MG TABLET (FOR DETOX USE ONLY) PO ONE (10:00)
[2017-08-23 10:31] LABS: ALBUMIN 3.4 g/dl (3.4-5.0); ALK PHOS 81 U/L (45-117); ANION GAP 6 (8-16); BILIRUBIN,TOTAL 0.6 mg/dL (0.2-1.0); BLOOD UREA NITROGEN 13 mg/dL (7-18); CALCIUM 7.6 mg/dL (8.5-10.1); CHLORIDE 103 mmol/L (98-107); CO2 31 mmol/L (21-32); CREATININE 0.7 mg/dL (0.7-1.3); GLUCOSE,RANDOM 85 mg/dL (74-106); POTASSIUM 3.7 mmol/L (3.5-5.1); SGOT/AST 34 U/L (15-37); SGPT/ALT 30 U/L (12-78); SODIUM 140 mmol/L (136-145); TOT PROT 5.8 g/dl (6.4-8.2)
[2017-08-23] MEDS: PRENATAL VITAMINS W/ FOLIC ACID TABLET (FP) PO SCH (10:31)
[2017-08-23] MEDS: diazePAM 5 MG TABLET PO PRN (10:32)
[2017-08-23 10:36] LABS: HEMATOCRIT 40.1 % (35.4-49); HEMOGLOBIN 13.9 GM/dL (11.7-16.9); MCH 35.7 pg (25.7-33.7); MCHC 34.7 g/dl (32.0-35.9); MEAN CELL VOLUME 102.9 fl (80-96); MEAN PLT VOLUME 9.4 fl (7.5-11.1); PLATELET COUNT 178 K/MM3 (134-434); RBC 3.89 M/mm3 (4.00-5.60); RDW 14.2 % (11.9-15.9); WHITE BLOOD COUNT 6.9 K/mm3 (4.0-10.0)
--- NOTE | 2017-08-23 11:27 | CONSULT ---
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 Substance Abuse History: Discussed with patient in this interview.Addictions reported on admission : confirmed.See current [facility] report for details : Smoking history: Current every day smoker. Have you smoked in the past 12 months: Yes. Aproximately how many cigarettes per day: 20. Cigars Per Day: 0. Hx Chewing Tobacco Use: No. Initiated information on smoking cessation: Yes. 'Breaking Loose' booklet given: 08/22/17 (GIVEN TO PATIENT.). - Substance & Tx. History. Hx Alcohol Use: Yes. Hx Substance Use: Yes. Substance Use Type: Alcohol, Cocaine, Heroin. Hx Substance Use Treatment: Yes (Previous Detox admissions at [facility] (Last: 10/2016).). - Substances Abused. Heroin. Route: Inhalation. Frequency: Daily. Amount used: 15 - 20 Bags. Age of first use: 32. Date of Last Use: 08/22/17. Cocaine. Route: Inhalation. Frequency: 3-6 times per week. Amount used: $ 50. Age of first use: 25. Date of Last Use: 08/19/17. * * Alcohol. Route: Oral. Frequency: 3-6 times per week. Amount used: 1/2 Bottle Vodka (06/21); 2 - 25 oz Beers. Age of first use: 14. Date of Last Use: 08/21/17 Medical History: Patient denies medical problems.Mr Stallings is already known to this insurance underwriter.Patient is an unreliable historian.As per established records : low back pain,traumatic brain injury and left inguinal herniorraphy. Psychiatric History: Patient is a hostile,unconcerned and indifferent historian.He denies recent psychiatric hospitalizations.Denies OPD care.Off psychotropic medications for months (self-report).A more accurate version of longitudinal history is taken from previous records : " Diagnosed with PTSD ( wounded in combat during tour of duty in [facility] in [place]).History of multiple psychiatric hospitalizations.Known to various [facility].Patient is currently followed at the [facility] ([facility]) for psychotherapy and medication management.He is on a regimen of remeron, prazosin,zolpidem and sertraline.Mr Stallings,in this interview,declines to resume his past medications ". End of imported note.Patient denies history of suicide attempts. Physical/Sexual Abuse/Trauma History: No reported history of sexual abuse.Six years in the [employer] [facility] [employer] ( [employer]Severely wounded in [place] (1982). Additional Comment: Urine Drug Screen Results: AILEEN-Cocaine, OPI-Opiates, OXY- Oxycodone.Noted. Mental Status Exam - Mental Status Exam Alert and Oriented to: Time, Place, Person Cognitive Function: Grossly Intact Patient Appearance: Unkempt, Disheveled Mood: Nervous, Withdrawn Affect: Mood Congruent, Constricted Patient Behavior: Fatigued, Uncooperative Speech Pattern: Clear Voice Loudness: Normal Thought Process: Goal Oriented Thought Disorder: Not Present Hallucinations: Denies Suicidal Ideation: Denies Homicidal Ideation: Denies Insight/Judgement: Poor Sleep: Well Appetite: Good (as evidenced by empty foodtray at bedside) Gait/Station: Other (not observed ; patient refuses to follow instructions to meet with insurance underwriter in the nearby office ; interview was conducted at bedside) Psychiatric Findings - Problem List ([place] 1, 2,3) (1) Opioid dependence with withdrawal Current Visit: Yes Status: Acute (2) Alcohol dependence, uncomplicated Current Visit: Yes Status: Acute (3) Cocaine dependence, uncomplicated Current Visit: Yes Status: Acute (4) Nicotine dependence Current Visit: Yes Status: Acute Qualifiers: Nicotine product type: cigarettes Substance use status: uncomplicated Qualified Code(s): F17.210 - Nicotine dependence, cigarettes, uncomplicated (5) PTSD (post-traumatic stress disorder) Current Visit: No Status: Chronic (6) Substance induced mood disorder Current Visit: Yes Status: Acute (7) Insomnia Current Visit: Yes Status: Acute Qualifiers: Insomnia type: unspecified Qualified Code(s): G47.00 - Insomnia, unspecified - Initial Treatment Plan Initial Treatment Plan: Records are revisited.Psychoeducation offered.Rejected by patient.Detoxification in progress.Sleep hygiene is brought to patient's attention.Made aware of the benefits of exercise,mobility,attendance to groups, unit meetings and recreational activities.Response : " I am tired.I got to rest. " No psychotropic medication prescribed with the exception of the components of current detoxification protocol.Mr Stallings has unambiguously declined to resume antidepressants/anxiolytic medications.Monitor hospital course.
--- NOTE | 2017-08-23 12:20 | PN ---
BHS COWS - Scale Resting Pulse: 1= [place] 81-100 Sweatin= Chills/Flushing Restless Observation: 1= Difficult to Sit Still Pupil Size: 0= Normal to Room Light Bone or Joint Aches: 2= Severe Diffuse Aches Runny Nose/ Eye Tearin= Nasal Congestion GI Upset > 30mins: 2= Nausea/Diarrhea Tremor Observation of Outstretched Hands: 2= Slight Tremor Visible Yawning Observation: 1= 1-2x During Session Anxiety or Irritability: 2=Irritable/Anxious Goose Flesh Skin: 3=Piloerection COWS Score: 16 BHS Progress Note (SOAP) Subjective: Tremors, Chills, Anxious, Sweating, Nausea, Body Aches. Objective: PATIENT A & O X 3, OBSERVED AMBULATING ON UNIT. NO ACUTE DISTRESS. 08/23/17 12:15 Vital Signs Temperature 96.9 F L 08/23/17 10:54 Pulse Rate 103 H 08/23/17 10:54 Respiratory Rate 20 08/23/17 10:54 Blood Pressure 153/91 08/23/17 10:54 O2 Sat by Pulse Oximetry (%) Laboratory Tests 08/22/17 08/23/17 08/23/17 18:48 07:00 07:00 WBC 6.9 RBC 3.89 L Hgb 13.9 Hct 40.1 MCV 102.9 H MCH 35.7 H MCHC 34.7 RDW 14.2 Plt Count 178 D MPV 9.4 Sodium 140 Potassium 3.7 Chloride 103 Carbon Dioxide 31 D Anion Gap 6 L BUN 13 Creatinine 0.7 D Creat Clearance w eGFR > 60 Random Glucose 85 D Calcium 7.6 L Total Bilirubin 0.6 D AST 34 ALT 30 Alkaline Phosphatase 81 Total Protein 5.8 L Albumin 3.4 D Urine Color Yellow Urine Appearance Clear Urine pH 6.0 Ur Specific Ama 1.019 Urine Protein Negative Urine Glucose (UA) Negative Urine Ketones 1+ H Urine Blood Negative Urine Nitrite Negative Urine Bilirubin Negative Urine Urobilinogen 2.0 Ur Leukocyte Esterase Negative RPR Titer HIV 1&2 Antibody Screen HIV P24 Antigen 08/23/17 08/23/17 07:00 07:00 WBC RBC Hgb Hct MCV MCH MCHC RDW Plt Count MPV Sodium Potassium Chloride Carbon Dioxide Anion Gap BUN Creatinine Creat Clearance w eGFR Random Glucose Calcium Total Bilirubin AST ALT Alkaline Phosphatase Total Protein Albumin Urine Color Urine Appearance Urine pH Ur Specific Ama Urine Protein Urine Glucose (UA) Urine Ketones Urine Blood Urine Nitrite Urine Bilirubin Urine Urobilinogen Ur Leukocyte Esterase RPR Titer Nonreactive HIV 1&2 Antibody Screen Negative HIV P24 Antigen Negative LABS NOTED. Assessment: 08/23/17 12:16 WITHDRAWAL SYMPTOMS. Plan: CONTINUE DETOX. CLONIDINE, 0.1 MG PO FOR ELEVATED BP AND FOR DETOX SYMPTOMS. INCREASE DAILY PO FLUID INTAKE.
[2017-08-23] MEDS: THIAMINE HCL 100 MG TABLET (FP) PO SCH (21:39)
[2017-08-24] MEDS ORDERED: METHADONE HCL 5 MG TABLET (FOR DETOX USE ONLY) PO ONE (10:00)
[2017-08-24] MEDS: diazePAM 5 MG TABLET PO PRN (10:29)
[2017-08-24] MEDS: PRENATAL VITAMINS W/ FOLIC ACID TABLET (FP) PO SCH (10:29)
--- NOTE | 2017-08-24 18:11 | PN ---
BHS COWS - Scale Resting Pulse: 0= [place] 80 or Below Sweatin=Flushed/Facial Moisture Restless Observation: 0= Sits Still Pupil Size: 0= Normal to Room Light Bone or Joint Aches: 2= Severe Diffuse Aches Runny Nose/ Eye Tearin= Nasal Congestion GI Upset > 30mins: 1= Stomach Cramp Tremor Observation of Outstretched Hands: 2= Slight Tremor Visible Yawning Observation: 2= >3x During Session Anxiety or Irritability: 2=Irritable/Anxious Goose Flesh Skin: 0=Smooth Skin COWS Score: 12 BHS Progress Note (SOAP) Subjective: Tremors, Nasal Congestion, Anxious, Fatigue, Body Aches. Objective: PATIENT A & O X 3, OBSERVED AMBULATING ON UNIT. NO ACUTE DISTRESS. 08/24/17 18:10 Vital Signs Temperature 98.3 F 08/24/17 18:08 Pulse Rate 76 08/24/17 18:08 Respiratory Rate 16 08/24/17 18:08 Blood Pressure 110/69 08/24/17 18:08 O2 Sat by Pulse Oximetry (%) Laboratory Tests 08/22/17 08/23/17 08/23/17 18:48 07:00 07:00 WBC 6.9 RBC 3.89 L Hgb 13.9 Hct 40.1 MCV 102.9 H MCH 35.7 H MCHC 34.7 RDW 14.2 Plt Count 178 D MPV 9.4 Sodium 140 Potassium 3.7 Chloride 103 Carbon Dioxide 31 D Anion Gap 6 L BUN 13 Creatinine 0.7 D Creat Clearance w eGFR > 60 Random Glucose 85 D Calcium 7.6 L Total Bilirubin 0.6 D AST 34 ALT 30 Alkaline Phosphatase 81 Total Protein 5.8 L Albumin 3.4 D Urine Color Yellow Urine Appearance Clear Urine pH 6.0 Ur Specific [place] 1.019 Urine Protein Negative Urine Glucose (UA) Negative Urine Ketones 1+ H Urine Blood Negative Urine Nitrite Negative Urine Bilirubin Negative Urine Urobilinogen 2.0 Ur Leukocyte Esterase Negative RPR Titer Hep C Ab Diagnostic HIV 1&2 Antibody Screen HIV P24 Antigen 08/23/17 08/23/17 08/23/17 07:00 07:00 07:00 WBC RBC Hgb Hct MCV MCH MCHC RDW Plt Count MPV Sodium Potassium Chloride Carbon Dioxide Anion Gap BUN Creatinine Creat Clearance w eGFR Random Glucose Calcium Total Bilirubin AST ALT Alkaline Phosphatase Total Protein Albumin Urine Color Urine Appearance Urine pH Ur Specific [place] Urine Protein Urine Glucose (UA) Urine Ketones Urine Blood Urine Nitrite Urine Bilirubin Urine Urobilinogen Ur Leukocyte Esterase RPR Titer Nonreactive Hep C Ab Diagnostic <0.1 HIV 1&2 Antibody Screen Negative HIV P24 Antigen Negative LABS NOTED. Assessment: 08/24/17 18:10 WITHDRAWAL SYMPTOMS. Plan: CONTINUE DETOX. INCREASE DAILY PO FLUID INTAKE.
[2017-08-24] MEDS: THIAMINE HCL 100 MG TABLET (FP) PO SCH (23:33)
[2017-08-25] MEDS ORDERED: METHADONE HCL 5 MG TABLET (FOR DETOX USE ONLY) PO ONE (10:00)
[2017-08-25] MEDS: PRENATAL VITAMINS W/ FOLIC ACID TABLET (FP) PO SCH (10:51)
[2017-08-25] MEDS: diazePAM 5 MG TABLET PO PRN (10:54)
--- NOTE | 2017-08-25 16:50 | PN ---
BHS Progress Note (SOAP) Subjective: nausea, sweating, cough, sore throat since yesterday (hurts when swallow), interrupted sleep Objective: 08/25/17 16:47 Last Vital Signs Temp Pulse Resp BP Pulse Ox 96.7 F L 82 18 131/87 08/25/17 14:25 08/25/17 14:25 08/25/17 14:25 08/25/17 14:25 Mouth: moist mucous membrane, moderate pharyngeal erythema without exudates Laboratory Tests 08/22/17 08/23/17 08/23/17 18:48 07:00 07:00 WBC 6.9 RBC 3.89 L Hgb 13.9 Hct 40.1 MCV 102.9 H MCH 35.7 H MCHC 34.7 RDW 14.2 Plt Count 178 D MPV 9.4 Sodium 140 Potassium 3.7 Chloride 103 Carbon Dioxide 31 D Anion Gap 6 L BUN 13 Creatinine 0.7 D Creat Clearance w eGFR > 60 Random Glucose 85 D Calcium 7.6 L Total Bilirubin 0.6 D AST 34 ALT 30 Alkaline Phosphatase 81 Total Protein 5.8 L Albumin 3.4 D Urine Color Yellow Urine Appearance Clear Urine pH 6.0 Ur Specific [place] 1.019 Urine Protein Negative Urine Glucose (UA) Negative Urine Ketones 1+ H Urine Blood Negative Urine Nitrite Negative Urine Bilirubin Negative Urine Urobilinogen 2.0 Ur Leukocyte Esterase Negative RPR Titer Hep C Ab Diagnostic HIV 1&2 Antibody Screen HIV P24 Antigen 08/23/17 08/23/17 08/23/17 07:00 07:00 07:00 WBC RBC Hgb Hct MCV MCH MCHC RDW Plt Count MPV Sodium Potassium Chloride Carbon Dioxide Anion Gap BUN Creatinine Creat Clearance w eGFR Random Glucose Calcium Total Bilirubin AST ALT Alkaline Phosphatase Total Protein Albumin Urine Color Urine Appearance Urine pH Ur Specific [place] Urine Protein Urine Glucose (UA) Urine Ketones Urine Blood Urine Nitrite Urine Bilirubin Urine Urobilinogen Ur Leukocyte Esterase RPR Titer Nonreactive Hep C Ab Diagnostic <0.1 HIV 1&2 Antibody Screen Negative HIV P24 Antigen Negative Labs noted Assessment: 08/25/17 16:49 Withdrawal symptoms Noted with acute URI Plan: Continue detox Acute URI: encouraged to drink lots of water, encouraged cepachol and cough syrup, Z Juan
[2017-08-25] MEDS ORDERED: AZITHROMYCIN 500 MG TABLET PO ONE (18:00)
[2017-08-25] MEDS: THIAMINE HCL 100 MG TABLET (FP) PO SCH (22:26)
[2017-08-26] MEDS ORDERED: METHADONE HCL 10 MG TABLET (FOR DETOX USE ONLY) PO ONE (10:00)
[2017-08-26] MEDS: PRENATAL VITAMINS W/ FOLIC ACID TABLET (FP) PO SCH (10:45)
[2017-08-26] MEDS: AZITHROMYCIN 250 MG TABLET PO SCH (11:48)
[2017-08-26] MEDS ORDERED: ONDANSETRON *ODT* 4 MG TABLET SL PRN (12:18)
--- NOTE | 2017-08-26 12:18 | PN ---
BHS Progress Note (SOAP) Subjective: ANXIETY,NAUSEA,SWEATS. Objective: 08/26/17 12:17 Vital Signs Temperature 97.9 F 08/26/17 10:16 Pulse Rate 80 08/26/17 10:16 Respiratory Rate 18 08/26/17 10:16 Blood Pressure 118/74 08/26/17 10:16 O2 Sat by Pulse Oximetry (%) Laboratory Last Values WBC 6.9 K/mm3 (4.0-10.0) 08/23/17 07:00 RBC 3.89 M/mm3 (4.00-5.60) L 08/23/17 07:00 Hgb 13.9 GM/dL (11.7-16.9) 08/23/17 07:00 Hct 40.1 % (35.4-49) 08/23/17 07:00 MCV 102.9 fl (80-96) H 08/23/17 07:00 MCH 35.7 pg (25.7-33.7) H 08/23/17 07:00 MCHC 34.7 g/dl (32.0-35.9) 08/23/17 07:00 RDW 14.2 % (11.9-15.9) 08/23/17 07:00 Plt Count 178 K/MM3 (134-434) D 08/23/17 07:00 MPV 9.4 fl (7.5-11.1) 08/23/17 07:00 Sodium 140 mmol/L (136-145) 08/23/17 07:00 Potassium 3.7 mmol/L (3.5-5.1) 08/23/17 07:00 Chloride 103 mmol/L (98-107) 08/23/17 07:00 Carbon Dioxide 31 mmol/L (21-32) D 08/23/17 07:00 Anion Gap 6 (8-16) L 08/23/17 07:00 BUN 13 mg/dL (7-18) 08/23/17 07:00 Creatinine 0.7 mg/dL (0.7-1.3) D 08/23/17 07:00 Creat Clearance w eGFR > 60 (>60) 08/23/17 07:00 Random Glucose 85 mg/dL (74-106) D 08/23/17 07:00 Calcium 7.6 mg/dL (8.5-10.1) L 08/23/17 07:00 Total Bilirubin 0.6 mg/dL (0.2-1.0) D 08/23/17 07:00 AST 34 U/L (15-37) 08/23/17 07:00 ALT 30 U/L (12-78) 08/23/17 07:00 Alkaline Phosphatase 81 U/L (45-117) 08/23/17 07:00 Total Protein 5.8 g/dl (6.4-8.2) L 08/23/17 07:00 Albumin 3.4 g/dl (3.4-5.0) D 08/23/17 07:00 Urine Color Yellow 08/22/17 18:48 Urine Appearance Clear 08/22/17 18:48 Urine pH 6.0 (5.0-8.0) 08/22/17 18:48 Ur Specific [place] 1.019 (1.001-1.035) 08/22/17 18:48 Urine Protein Negative (NEGATIVE) 08/22/17 18:48 Urine Glucose (UA) Negative (NEGATIVE) 08/22/17 18:48 Urine Ketones 1+ (NEGATIVE) H 08/22/17 18:48 Urine Blood Negative (NEGATIVE) 08/22/17 18:48 Urine Nitrite Negative (NEGATIVE) 08/22/17 18:48 Urine Bilirubin Negative (NEGATIVE) 08/22/17 18:48 Urine Urobilinogen 2.0 mg/dL (0.2-1.0) 03 18:48 Ur Leukocyte Esterase Negative (NEGATIVE) 08/22/17 18:48 RPR Titer Nonreactive (NONREACTIVE) 08/23/17 07:00 Hep C Ab Diagnostic <0.1 s/co ratio (0.0-0.9) 08/23/17 07:00 HIV 1&2 Antibody Screen Negative 08/23/17 07:00 HIV P24 Antigen Negative 08/23/17 07:00 Assessment: 08/26/17 12:18 WITHDRAWAL SX Plan: CONTINUE DETOX ZOFRAN SL DIRECTED
[2017-08-26] MEDS: THIAMINE HCL 100 MG TABLET (FP) PO SCH (22:26)
[2017-08-27] MEDS ORDERED: METHADONE HCL 5 MG TABLET (FOR DETOX USE ONLY) PO ONE (06:00)
[2017-08-27 10:23] VITALS: BP 138/90; PULSE 86; TEMP 97.9
[2017-08-27] MEDS: PRENATAL VITAMINS W/ FOLIC ACID TABLET (FP) PO SCH (11:02)
[2017-08-27] MEDS: AZITHROMYCIN 250 MG TABLET PO SCH (11:03)
--- NOTE | 2017-08-27 14:23 | PN ---
BHS Progress Note (SOAP) Subjective: DETOX COMPLETED. ALERT O X 3. 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 PT DENIES ANY URI SYMPTOMS SINCE THE PAST 24 TO 36 HRS. NO C/O SORE THROAT,COUGH OR RUNNY NOSE NOTED OR VERBALIZED. Objective: 08/27/17 14:21 Vital Signs Temperature 97.9 F 08/27/17 10:22 Pulse Rate 86 08/27/17 10:22 Respiratory Rate 18 08/27/17 10:22 Blood Pressure 138/90 08/27/17 10:22 O2 Sat by Pulse Oximetry (%) Laboratory Tests 08/22/17 08/23/17 08/23/17 18:48 07:00 07:00 WBC 6.9 RBC 3.89 L Hgb 13.9 Hct 40.1 MCV 102.9 H MCH 35.7 H MCHC 34.7 RDW 14.2 Plt Count 178 D MPV 9.4 Sodium 140 Potassium 3.7 Chloride 103 Carbon Dioxide 31 D Anion Gap 6 L BUN 13 Creatinine 0.7 D Creat Clearance w eGFR > 60 Random Glucose 85 D Calcium 7.6 L Total Bilirubin 0.6 D AST 34 ALT 30 Alkaline Phosphatase 81 Total Protein 5.8 L Albumin 3.4 D Urine Color Yellow Urine Appearance Clear Urine pH 6.0 Ur Specific [place] 1.019 Urine Protein Negative Urine Glucose (UA) Negative Urine Ketones 1+ H Urine Blood Negative Urine Nitrite Negative Urine Bilirubin Negative Urine Urobilinogen 2.0 Ur Leukocyte Esterase Negative RPR Titer Hep C Ab Diagnostic HIV 1&2 Antibody Screen HIV P24 Antigen 08/23/17 08/23/17 08/23/17 07:00 07:00 07:00 WBC RBC Hgb Hct MCV MCH MCHC RDW Plt Count MPV Sodium Potassium Chloride Carbon Dioxide Anion Gap BUN Creatinine Creat Clearance w eGFR Random Glucose Calcium Total Bilirubin AST ALT Alkaline Phosphatase Total Protein Albumin Urine Color Urine Appearance Urine pH Ur Specific [place] Urine Protein Urine Glucose (UA) Urine Ketones Urine Blood Urine Nitrite Urine Bilirubin Urine Urobilinogen Ur Leukocyte Esterase RPR Titer Nonreactive Hep C Ab Diagnostic <0.1 HIV 1&2 Antibody Screen Negative HIV P24 Antigen Negative Assessment: 08/27/17 14:21 NAD Plan: [facility]
--- NOTE | 2017-08-27 14:27 | DS ---
[facility] Detox Discharge Summary Admission Date: 08/22/17 Discharge Date: 08/27/17 - History Present History: Alcohol Dependence, Cocaine Dependence, Opioid Dependence Additional Comments: DETOX COMPLETED. ALERT O X 3, NAD. PT WAS REFERRED TO [facility] AND WAS PICKED UP TO FACILITY TODAY BY TRANSPORTATION. Pertinent Past History: SEE DX BELOW - Physical Exam Results Vital Signs: Vital Signs Temperature 97.9 F 08/27/17 10:22 Pulse Rate 86 08/27/17 10:22 Respiratory Rate 18 08/27/17 10:22 Blood Pressure 138/90 08/27/17 10:22 O2 Sat by Pulse Oximetry (%) Pertinent Admission Physical Exam Findings: WITHDRAWAL SX Laboratory Last Values WBC 6.9 K/mm3 (4.0-10.0) 08/23/17 07:00 RBC 3.89 M/mm3 (4.00-5.60) L 08/23/17 07:00 Hgb 13.9 GM/dL (11.7-16.9) 08/23/17 07:00 Hct 40.1 % (35.4-49) 08/23/17 07:00 MCV 102.9 fl (80-96) H 08/23/17 07:00 MCH 35.7 pg (25.7-33.7) H 08/23/17 07:00 MCHC 34.7 g/dl (32.0-35.9) 08/23/17 07:00 RDW 14.2 % (11.9-15.9) 08/23/17 07:00 Plt Count 178 K/MM3 (134-434) D 08/23/17 07:00 MPV 9.4 fl (7.5-11.1) 08/23/17 07:00 Sodium 140 mmol/L (136-145) 08/23/17 07:00 Potassium 3.7 mmol/L (3.5-5.1) 08/23/17 07:00 Chloride 103 mmol/L (98-107) 08/23/17 07:00 Carbon Dioxide 31 mmol/L (21-32) D 08/23/17 07:00 Anion Gap 6 (8-16) L 08/23/17 07:00 BUN 13 mg/dL (7-18) 08/23/17 07:00 Creatinine 0.7 mg/dL (0.7-1.3) D 08/23/17 07:00 Creat Clearance w eGFR > 60 (>60) 08/23/17 07:00 Random Glucose 85 mg/dL (74-106) D 08/23/17 07:00 Calcium 7.6 mg/dL (8.5-10.1) L 08/23/17 07:00 Total Bilirubin 0.6 mg/dL (0.2-1.0) D 08/23/17 07:00 AST 34 U/L (15-37) 08/23/17 07:00 ALT 30 U/L (12-78) 08/23/17 07:00 Alkaline Phosphatase 81 U/L (45-117) 08/23/17 07:00 Total Protein 5.8 g/dl (6.4-8.2) L 08/23/17 07:00 Albumin 3.4 g/dl (3.4-5.0) D 08/23/17 07:00 Urine Color Yellow 08/22/17 18:48 Urine Appearance Clear 08/22/17 18:48 Urine pH 6.0 (5.0-8.0) 08/22/17 18:48 Ur Specific [place] 1.019 (1.001-1.035) 08/22/17 18:48 Urine Protein Negative (NEGATIVE) 08/22/17 18:48 Urine Glucose (UA) Negative (NEGATIVE) 08/22/17 18:48 Urine Ketones 1+ (NEGATIVE) H 08/22/17 18:48 Urine Blood Negative (NEGATIVE) 08/22/17 18:48 Urine Nitrite Negative (NEGATIVE) 08/22/17 18:48 Urine Bilirubin Negative (NEGATIVE) 08/22/17 18:48 Urine Urobilinogen 2.0 mg/dL (0.2-1.0) 08/22/17 18:48 Ur Leukocyte Esterase Negative (NEGATIVE) 08/22/17 18:48 RPR Titer Nonreactive (NONREACTIVE) 08/23/17 07:00 Hep C Ab Diagnostic <0.1 s/co ratio (0.0-0.9) 08/23/17 07:00 HIV 1&2 Antibody Screen Negative 08/23/17 07:00 HIV P24 Antigen Negative 08/23/17 07:00 - Treatment Hospital Course: Detox Protocol Followed, Detoxed Safely, Responded well, Discharged Condition Good, Rehab Referral Accepted Patient has Accepted a Rehab Referral to: [facility] - Medication Discharge Medications: Ambulatory Orders Prazosin HCl [Minipress] 4 mg PO HS 09/22/16 Mirtazapine [Remeron -] 15 mg PO HS #30 tablet 10/24/16 - Diagnosis (1) Alcohol dependence with uncomplicated withdrawal Status: Acute (2) Opioid dependence with withdrawal Status: Acute (3) Cocaine dependence, uncomplicated Status: Acute (4) History of seizure Status: Suspected (5) History of traumatic brain injury Status: Chronic (6) Nicotine dependence Status: Acute Qualifiers: Nicotine product type: cigarettes Substance use status: in withdrawal Qualified Code(s): F17.213 - Nicotine dependence, cigarettes, with withdrawal (7) Acute low back pain Status: Acute Qualifiers: Back pain laterality: unspecified - AMA Did Patient Leave Against Medical Advice: No
== END 2017-08-27 09:10 | disposition home or self-care (01) | DRG 773 ==
LOC: YASAS 11:58 → Y3N 18:29
PROVIDERS: ADMIT Internal Medicine; ATTEND Internal Medicine
PROC: HZ2ZZZZ Detoxification Services for Substance Abuse Treatment (ICD-10-PCS; principal; 2017-08-22)
DX: F11.23 Opioid dependence with withdrawal (principal); F10.230 Alcohol dependence with withdrawal, uncomplicated; F14.20 Cocaine dependence, uncomplicated; F17.213 Nicotine dependence, cigarettes, with withdrawal; F33.9 Major depressive disorder, recurrent, unspecified; F43.10 Post-traumatic stress disorder, unspecified; M54.5 Low back pain; J06.9 Acute upper respiratory infection, unspecified; G47.00 Insomnia, unspecified; R76.11 Nonspecific reaction to tuberculin skin test without active tuberculosis; G40.89 Other seizures; Z88.8 Allergy status to other drugs, medicaments and biological substances; Z91.013 Allergy to seafood; Z87.820 Personal history of traumatic brain injury
CPT/HCPCS: 36415; 71046-TC-FY; 80053; 81003; 85027; 86593; 87389; 93005; 93010

== ENCOUNTER 2018-02-26 15:28 | Inpatient (IN) | payer OTHER ==
[2018-02-26 17:03] VITALS: BMI 26.4
--- NOTE | 2018-02-26 20:42 | HP ---
COWS - Scale Resting Pulse: 2= [place] 101-120 Sweatin= Chills/Flushing Restless Observation: 1= Difficult to Sit Still Pupil Size: 1= Pupils >than Normal Bone or Joint Aches: 2= Severe Diffuse Aches Runny Nose/ Eye Tearin= Runny Nose/Eyes GI Upset > 30mins: 3= Vomiting/Diarrhea Tremor Observation: 1= Tremor [place], Not Seen Yawning Observation: 4= Several Times/Minute Anxiety or Irritability: 2=Irritable/Anxious Goose Flesh Skin: 0=Smooth Skin COWS Score: 19 Admission [facility] Chief Complaint: opioid withdrawal symptoms Allergies/Adverse Reactions: Allergies Allergy/AdvReac Type Severity Reaction Status Date / Time Fish Containing Products Allergy Severe Rash Verified 08/22/17 15:33 trazodone Allergy Severe priapism Verified 08/22/17 17:31 gabapentin [From Neurontin] AdvReac Severe Depression Verified 08/22/17 17:31 pregabalin [From Lyrica] AdvReac Severe Depression Verified 08/22/17 15:35 ALL ANTIBIOTICS AdvReac Uncoded 08/27/17 09:39 History of Present Illness: 57 yo male with hx of nicotine and heroin (intravenous and nasal) dependence is here seeking detox. PMHX: Chronic back pain, neuropathy, TBI, PTSD, depression, anxiety. Reports used one time 2mg dose of suboxone "off the street" yesterday. Last detox [facility] August 2017. Denies suicidal / homicidal ideation or hx of suicide attempts. Longest period of sobriety two years. Exam Limitations: No Limitations - Ebola screening Have you traveled outside of the country in the last 21 days: No Have you had contact with anyone from an Ebola affected area: No Have you been sick,other than usual withdrawal symptoms: No Do you have a fever: No - Review of Systems Constitutional: Chills, Diaphoresis, Changes in sleep, Weakness, Unintentional Wgt. Loss EENT: reports: Nose Congestion, Other (uses reading glasses) Respiratory: reports: No Symptoms reported Cardiac: reports: No Symptoms Reported GI: reports: Diarrhea, Poor Fluid Intake, Indigestion, Abdominal cramping : reports: No Symptoms Reported Musculoskeletal: reports: Back Pain, Joint Pain Integumentary: reports: No Symptoms Reported Neuro: reports: Headache, Weakness Endocrine: reports: No Symptoms Reported Hematology: reports: No Symptoms Reported Psychiatric: reports: Orientated x3, Anxious Other Systems: Reviewed and Negative Patient History - Patient Medical History Hx Anemia: No Hx Asthma: No Hx Chronic Obstructive Pulmonary Disease (COPD): No Hx Cancer: No Hx Cardiac Disorders: No Hx Congestive Heart Failure: No Hx Hypertension: No Hx Hypercholesterolemia: No Hx Pacemaker: No HX Cerebrovascular Accident: No Hx Seizures: Yes (r/t head trauma-last episode was in 11/2015) Hx Dementia: No Hx Diabetes: No Hx Gastrointestinal Disorders: No Hx Liver Disease: No Hx Genitourinary Disorders: No Hx Sexually Transmitted Disorders: No Hx Renal Disease (ESRD): No Hx Thyroid Disease: No Hx Human Immunodeficiency Virus (HIV): No (Last tested: 10/2016: NEGATIVE.) Hx Hepatitis C: No (Last tested: 10/2016: NEGATIVE.) Hx Depression: Yes Hx Suicide Attempt: No Hx Bipolar Disorder: No Hx Schizophrenia: No - Patient Surgical History Past Surgical History: Yes Hx Neurologic Surgery: No Hx Cataract Extraction: No Hx Cardiac Surgery: No Hx Lung Surgery: No Hx Breast Surgery: No Hx Breast Biopsy: No Hx Abdominal Surgery: Yes (LEFT INGUINAL HERNIA SX DURING CHILDHOOD.) Hx Appendectomy: No Hx Cholecystectomy: No Hx Genitourinary Surgery: No Hx Section: No Hx Orthopedic Surgery: No Other Surgical History: Hx of fall from height-war, Pt stated had trumatic brain injury, no surgery Anesthesia Reaction: No - PPD History Previous Implant?: Yes Documented Results: Positive w/proof Results: CXR,04/2016 Neg - Smoking Cessation Smoking history: Current every day smoker Have you smoked in the past 12 months: Yes Aproximately how many cigarettes per day: 20 Cigars Per Day: 0 Hx Chewing Tobacco Use: Yes Initiated information on smoking cessation: Yes 'Breaking Loose' booklet given: 02/26/18 - Substance & Tx. History Hx Alcohol Use: Yes Hx Substance Use: Yes Substance Use Type: Heroin Hx Substance Use Treatment: Yes (Last detox [facility] August 2017. ) - Substances Abused Heroin Route: Injection Frequency: Daily Amount used: 10 BAGS Age of first use: 32 Date of Last Use: 02/25/18 Family Disease History - Family Disease History Family Disease History: Diabetes: [place]; .), Heart Disease: Father , Other: Mother (.) Admission Physical Exam BHS - Vital Signs Vital Signs: Vital Signs - 24 hr 02/26/18 17:01 Temperature 98.3 F Pulse Rate 105 H Respiratory 18 Rate Blood Pressure 147/88 - Physical General Appearance: Yes: Appropriately Dressed, Moderate Distress, Sweating, Anxious HEENTM: Yes: EOMI, Hearing grossly Normal, Normal ENT Inspection, Normocephalic , Normal Voice, ARYAN, Pharynx Normal, Tm's normal Respiratory: Yes: Chest Non-Tender, Lungs Clear, Normal Breath Sounds, No Respiratory Distress, No Accessory Muscle Use Neck: Yes: Within Normal Limits Breast: Yes: Breast Exam Deferred Cardiology: Yes: Regular Rhythm, Regular Rate Abdominal: Yes: Normal Bowel Sounds, Non Tender, Flat, Soft Genitourinary: Yes: Within Normal Limits Back: Yes: Normal Inspection Musculoskeletal: Yes: full range of Motion, Gait Steady, Pelvis Stable, Back pain Extremities: Yes: Normal Capillary Refill, Normal Inspection, Normal Range of Motion Neurological: Yes: senior program manager II-XII NML intact, Fully Oriented, Alert, Motor Strength 5/5, Depressed Affect Integumentary: Yes: Normal Color, Warm, Diaphoresis Lymphatic: Yes: Within Normal Limits - Diagnostic (1) Back pain Current Visit: Yes Status: Chronic Qualifiers: Back pain location: low back pain Back pain laterality: bilateral (2) Neuropathy Current Visit: Yes Status: Chronic (3) Nicotine dependence Current Visit: Yes Status: Acute Qualifiers: Nicotine product type: cigarettes Substance use status: in withdrawal Qualified Code(s): F17.213 - Nicotine dependence, cigarettes, with withdrawal (4) Opioid dependence with withdrawal Current Visit: Yes Status: Acute (5) Depression Current Visit: Yes Status: Chronic Qualifiers: Depression Type: unspecified Qualified Code(s): F32.9 - Major depressive disorder, single episode, unspecified (6) History of traumatic brain injury Current Visit: Yes Status: Chronic (7) History of seizure Current Visit: Yes Status: Suspected Cleared for Admission [facility] - Detox or Rehab [facility] Level of Care: Medically Managed Detox Regimen/Protocol: Methadone [facility] Breath Alcohol Content Breath Alcohol Content: 0 Urine Drug Screen - Results Drug Screen Negative: No Urine Drug Screen Results: OPI-Opiates, OXY-Oxycodone, BUP-Suboxone
[2018-02-26] MEDS ORDERED: ONDANSETRON *ODT* 4 MG TABLET SL PRN (20:47)
[2018-02-26] MEDS ORDERED: MAG HYDROX/AL HYDROX/SIMETH 30 ML UNIT-DOSE CUP PO PRN (20:47)
[2018-02-26] MEDS ORDERED: MAGNESIUM HYDROX 2400MG/30ML ORAL SUSPENSION 30 ML CUP PO PRN (20:47)
[2018-02-26] MEDS ORDERED: P-EPHED 60MG/TRIPROLIDI 2.5MG TABLET PO PRN (20:47)
[2018-02-26] MEDS ORDERED: guaiFENesin/D-METHORPHAN HB 10 ML UNIT-DOSE CUPS PO PRN (20:47)
[2018-02-26] MEDS ORDERED: METHADONE HCL 10 MG TABLET (FOR DETOX USE ONLY) PO ONE ×2 (20:47→23:00)
[2018-02-26] MEDS ORDERED: IBUPROFEN 400 MG TABLET (FP) PO PRN ×2 (20:47→21:06)
[2018-02-26] MEDS ORDERED: MENTHOL/PHENOL 1 EACH UD MM PRN (20:47)
[2018-02-26] MEDS ORDERED: ACETAMINOPHEN 325 MG TABLET (FP) PO PRN (20:47)
[2018-02-26] MEDS ORDERED: MAGNESIUM CITRATE 300 ML BOTTLE PO PRN (20:47)
[2018-02-26] MEDS ORDERED: LOPERAMIDE HCL 2 MG CAPSULE PO PRN (20:47)
[2018-02-26] MEDS: diazePAM 5 MG TABLET PO PRN (21:56)
[2018-02-26] MEDS: THIAMINE HCL 100 MG TABLET (FP) PO SCH (21:57)
[2018-02-26] MEDS: LIDOCAINE PATCH REMOVAL MC SCH (21:57)
[2018-02-26] MEDS: CYCLOBENZAPRINE HCL 10 MG TABLET (FP) PO SCH (21:57)
[2018-02-26] MEDS ORDERED: MELATONIN 5 MG TABLETS PO PRN (22:00)
[2018-02-27 00:05] LABS: URINE APPEARANCE SLCLOUDY; URINE COLOR AMBER; URINE GLUCOSE (UA) NEGATIVE (NEGATIVE); URINE KETONE TRACE (NEGATIVE); URINE LEUK ESTERASE NEGATIVE (NEGATIVE); URINE NITRITE NEGATIVE (NEGATIVE)
[2018-02-27 00:29] LABS: URINE PROTEIN 2+ (NEGATIVE)
[2018-02-27 00:55] LABS: CALCIUM OXALATE CRYSTALS FEW /hpf (NONE SEEN); EPI CELLS RARE /HPF (FEW); URINE BACTERIA FEW /hpf (NONE SEEN); URINE HYALINE CAST 15 /lpf; URINE MUCUS MANY
[2018-02-27] MEDS: CYCLOBENZAPRINE HCL 10 MG TABLET (FP) PO SCH ×3 (05:41→22:12)
[2018-02-27] MEDS: diazePAM 5 MG TABLET PO PRN ×5 (05:42→22:14)
[2018-02-27] MEDS ORDERED: METHADONE HCL 10 MG TABLET (FOR DETOX USE ONLY) PO ONE (10:00)
[2018-02-27] MEDS: PRENATAL VITAMINS W/ FOLIC ACID TABLET (FP) PO SCH (10:12)
[2018-02-27] MEDS: LIDOCAINE 5% TOPICAL PATCH TP SCH (10:14)
[2018-02-27 10:42] LABS: HEMATOCRIT 39.4 % (35.4-49); HEMOGLOBIN 13.3 GM/dL (11.7-16.9); MCH 33.5 pg (25.7-33.7); MCHC 33.7 g/dl (32.0-35.9); MEAN CELL VOLUME 99.3 fl (80-96); MEAN PLT VOLUME 8.7 fl (7.5-11.1); PLATELET COUNT 246 K/MM3 (134-434); RBC 3.96 M/mm3 (4.00-5.60); WHITE BLOOD COUNT 6.2 K/mm3 (4.0-10.0)
[2018-02-27 10:54] LABS: CHLORIDE 109 mmol/L (98-107); POTASSIUM 4.1 mmol/L (3.5-5.1); SODIUM 145 mmol/L (136-145)
[2018-02-27 11:13] LABS: ALBUMIN 3.3 g/dl (3.4-5.0); ALK PHOS 81 U/L (45-117); ANION GAP 10 MMOL/L (8-16); BILIRUBIN,TOTAL 0.2 mg/dL (0.2-1.0); BLOOD UREA NITROGEN 20 mg/dL (7-18); CALCIUM 8.3 mg/dL (8.5-10.1); CO2 26 mmol/L (21-32); CREATININE 0.7 mg/dL (0.7-1.3); GLUCOSE,RANDOM 124 mg/dL (74-106); SGOT/AST 15 U/L (15-37); SGPT/ALT 19 U/L (13-61); TOT PROT 6.1 g/dl (6.4-8.2)
--- NOTE | 2018-02-27 11:21 | CONSULT ---
[facility] Psychiatric Consult - Data Date of interview: 02/27/18 Admission source: [facility] Identifying data: Patient is a 57 year old single male, without children, unemployed, homeless, and is supported by [facility] and his pension from the . This is one of multiple admissions for patient. Pt. admitted to for opiate dependence. Substance Abuse History: Smoking Cessation. Smoking history: Current every day smoker. Have you smoked in the past 12 months: Yes. Aproximately how many cigarettes per day: 20. Cigars Per Day: 0. Hx Chewing Tobacco Use: Yes. Initiated information on smoking cessation: Yes. 'Breaking Loose' booklet given : 02/26/18. - Substance & Tx. History. Hx Alcohol Use: Yes. Hx Substance Use : Yes. Substance Use Type: Heroin. Hx Substance Use Treatment: Yes (Last detox [facility] August 2017. ). - Substances Abused. Heroin. Route: Injection. Frequency: Daily. Amount used: 10 BAGS. Age of first use: 32. Date of Last Use: 02/25/18 Medical History: Seizures (r/t head trauma-last episode was in 11/2015), Left inguinal hernia surgery during childhood Psychiatric History: Patient reports two psychiatric hospitalizations, most recently in 2014 at the trauma recovery center in [place] for PTSD (wounded in combat during tour of duty in [facility] [facility] in 1982) . Outpatient psychiatric services was provided at the [facility] ([facility] Patient denies current OPD. Patient was recently on the rehab unit at [facility]. A prescription of Prazosin 1mg, mirtzapine 30mg , and zoloft 50mg was electronically sent to patient's pharmacy on 02/20/18. Pt. denies h/o suicide attempt. Physical/Sexual Abuse/Trauma History: denies. Additional Comment: [employer] ([id number]) Mental Status Exam - Mental Status Exam Alert and Oriented to: Time, Place, Person Cognitive Function: Good Patient Appearance: Well Groomed Mood: Euthymic Affect: Mood Congruent Patient Behavior: Appropriate, Cooperative Speech Pattern: Appropriate Voice Loudness: Normal Thought Process: Intact, Goal Oriented Thought Disorder: Not Present Hallucinations: Denies Suicidal Ideation: Denies Homicidal Ideation: Denies Insight/Judgement: Poor Sleep: Poorly Appetite: Fair Muscle strength/Tone: Normal Gait/Station: Normal Psychiatric Findings - Problem List ([place] 1, 2,3) (1) Opioid dependence with withdrawal Current Visit: Yes Status: Acute (2) PTSD (post-traumatic stress disorder) Current Visit: Yes Status: Chronic (3) Nicotine dependence Current Visit: Yes Status: Chronic Qualifiers: Nicotine product type: cigarettes Substance use status: in withdrawal Qualified Code(s): F17.213 - Nicotine dependence, cigarettes, with withdrawal (4) MDD (major depressive disorder) Current Visit: Yes Status: Acute Qualifiers: Major depression recurrence: recurrent Active/Remission status: remission status unspecified Qualified Code(s): F33.9 - Major depressive disorder, recurrent, unspecified - Initial Treatment Plan Initial Treatment Plan: Psychoeducation provided. Detoxification in progress. Will order Zoloft 50mg daily + Mirtazapine 30mg + Prazosin 1mg qhs. Benefits and side effects discussed. Verbal consent given.
[2018-02-27] MEDS: SERTRALINE HCL 50 MG TABLET (FP) PO SCH (13:32)
--- NOTE | 2018-02-27 15:14 | PN ---
BHS COWS - Scale Resting Pulse: 0= [place] 80 or Below Sweatin= No chills or Flushing Restless Observation: 0= Sits Still Pupil Size: 0= Normal to Room Light Bone or Joint Aches: 1= Mild Discomfort Runny Nose/ Eye Tearin= None GI Upset > 30mins: 0= None Tremor Observation of Outstretched Hands: 0= None Yawning Observation: 0= None Anxiety or Irritability: 1=Feels Anxious/Irritable Goose Flesh Skin: 0=Smooth Skin COWS Score: 2 BHS Progress Note (SOAP) Subjective: Patient c/o body aches and anxious feelings. Objective: 02/27/18 15:13 Vital Signs Temperature 97.9 F 02/27/18 13:48 Pulse Rate 79 02/27/18 13:48 Respiratory Rate 20 02/27/18 13:48 Blood Pressure 122/77 02/27/18 13:48 O2 Sat by Pulse Oximetry (%) Laboratory Tests 02/26/18 02/27/18 02/27/18 Unknown 07:00 07:00 WBC 6.2 RBC 3.96 L Hgb 13.3 Hct 39.4 MCV 99.3 H MCH 33.5 MCHC 33.7 RDW 13.0 Plt Count 246 D MPV 8.7 Sodium Potassium Chloride Carbon Dioxide Anion Gap BUN Creatinine Creat Clearance w eGFR Random Glucose Calcium Total Bilirubin AST ALT Alkaline Phosphatase Total Protein Albumin Urine Color [place] Urine Appearance Slcloudy Urine pH 5.0 Ur Specific [place] 1.031 Urine Protein 2+ H Urine Glucose (UA) Negative Urine Ketones Trace H Urine Blood Negative Urine Nitrite Negative Urine Bilirubin 4.0 Urine Urobilinogen 2.0 Ur Leukocyte Esterase Negative Urine WBC (Auto) 3 Urine RBC (Auto) 1 Ur Epithelial Cells Rare Calcium Oxalate Crystal Few Urine Bacteria Few Hyaline Casts 15 Urine Mucus Many RPR Titer HIV 1&2 Antibody Screen Negative HIV P24 Antigen Negative 02/27/18 02/27/18 07:00 07:00 WBC RBC Hgb Hct MCV MCH MCHC RDW Plt Count MPV Sodium 145 Potassium 4.1 Chloride 109 H Carbon Dioxide 26 Anion Gap 10 BUN 20 H Creatinine 0.7 Creat Clearance w eGFR > 60 Random Glucose 124 H D Calcium 8.3 L Total Bilirubin 0.2 AST 15 ALT 19 Alkaline Phosphatase 81 Total Protein 6.1 L Albumin 3.3 L Urine Color Urine Appearance Urine pH Ur Specific [place] Urine Protein Urine Glucose (UA) Urine Ketones Urine Blood Urine Nitrite Urine Bilirubin Urine Urobilinogen Ur Leukocyte Esterase Urine WBC (Auto) Urine RBC (Auto) Ur Epithelial Cells Calcium Oxalate Crystal Urine Bacteria Hyaline Casts Urine Mucus RPR Titer Nonreactive HIV 1&2 Antibody Screen HIV P24 Antigen Assessment: 02/27/18 15:13 Withdrawal syndrome Plan: Continue detox as per protocol.
--- NOTE | 2018-02-27 15:41 | EKG ---
Test Reason : Blood Pressure : / mmHG Vent. Rate : 077 BPM Atrial Rate : 077 BPM P-R Int : 138 ms QRS Dur : 088 ms QT Int : 364 ms P-R-T Axes : 077 036 046 degrees QTc Int : 411 ms NORMAL SINUS RHYTHM NORMAL ECG WHEN COMPARED WITH ECG OF 22-AUG-2017 19:54, T WAVE AMPLITUDE HAS INCREASED IN ANTERIOR LEADS Confirmed by LAZARUS VELIZ MD ([id number]) on 02/27/2018 3:41:05 PM Referred By: Confirmed By:LAZARUS VELIZ MD
[2018-02-27] MEDS: THIAMINE HCL 100 MG TABLET (FP) PO SCH (22:12)
[2018-02-27] MEDS: PRAZOSIN HCL 1 MG CAPSULE PO SCH (22:12)
[2018-02-27] MEDS: MIRTAZAPINE 30 MG TABLET (FP) PO SCH (22:12)
[2018-02-27] MEDS: LIDOCAINE PATCH REMOVAL MC SCH (22:12)
[2018-02-28] MEDS: diazePAM 5 MG TABLET PO PRN ×4 (05:12→22:26)
[2018-02-28] MEDS: CYCLOBENZAPRINE HCL 10 MG TABLET (FP) PO SCH ×3 (05:12→22:25)
[2018-02-28] MEDS ORDERED: METHADONE HCL 5 MG TABLET (FOR DETOX USE ONLY) PO ONE (10:00)
[2018-02-28] MEDS: PRENATAL VITAMINS W/ FOLIC ACID TABLET (FP) PO SCH (10:08)
[2018-02-28] MEDS: SERTRALINE HCL 50 MG TABLET (FP) PO SCH (10:08)
[2018-02-28] MEDS: LIDOCAINE 5% TOPICAL PATCH TP SCH (10:11)
--- NOTE | 2018-02-28 12:35 | PN ---
BHS COWS - Scale Resting Pulse: 1= MI 81-100 Sweatin= Chills/Flushing Restless Observation: 1= Difficult to Sit Still Pupil Size: 1= Pupils >than Normal Bone or Joint Aches: 2= Severe Diffuse Aches Runny Nose/ Eye Tearin= Runny Nose/Eyes GI Upset > 30mins: 0= None Tremor Observation of Outstretched Hands: 1= Tremor [place], Not Seen Yawning Observation: 1= 1-2x During Session Anxiety or Irritability: 2=Irritable/Anxious Goose Flesh Skin: 0=Smooth Skin COWS Score: 12 BHS Progress Note (SOAP) Subjective: back pain, body aches, headache, interrupted sleep Objective: 02/28/18 12:33 Vital Signs Temperature 97.4 F L 02/28/18 09:04 Pulse Rate 100 H 02/28/18 09:04 Respiratory Rate 20 02/28/18 09:04 Blood Pressure 90/62 02/28/18 09:04 O2 Sat by Pulse Oximetry (%) Laboratory Last Values WBC 6.2 K/mm3 (4.0-10.0) 02/27/18 07:00 RBC 3.96 M/mm3 (4.00-5.60) L 02/27/18 07:00 Hgb 13.3 GM/dL (11.7-16.9) 02/27/18 07:00 Hct 39.4 % (35.4-49) 02/27/18 07:00 MCV 99.3 fl (80-96) H 02/27/18 07:00 MCH 33.5 pg (25.7-33.7) 02/27/18 07:00 MCHC 33.7 g/dl (32.0-35.9) 02/27/18 07:00 RDW 13.0 % (11.9-15.9) 02/27/18 07:00 Plt Count 246 K/MM3 (134-434) D 02/27/18 07:00 MPV 8.7 fl (7.5-11.1) 02/27/18 07:00 Sodium 145 mmol/L (136-145) 02/27/18 07:00 Potassium 4.1 mmol/L (3.5-5.1) 02/27/18 07:00 Chloride 109 mmol/L (98-107) H 02/27/18 07:00 Carbon Dioxide 26 mmol/L (21-32) 02/27/18 07:00 Anion Gap 10 MMOL/L (8-16) 02/27/18 07:00 BUN 20 mg/dL (7-18) H 02/27/18 07:00 Creatinine 0.7 mg/dL (0.7-1.3) 02/27/18 07:00 Creat Clearance w eGFR > 60 (>60) 02/27/18 07:00 Random Glucose 124 mg/dL (74-106) H D 02/27/18 07:00 Calcium 8.3 mg/dL (8.5-10.1) L 02/27/18 07:00 Total Bilirubin 0.2 mg/dL (0.2-1.0) 02/27/18 07:00 AST 15 U/L (15-37) 02/27/18 07:00 ALT 19 U/L (13-61) 02/27/18 07:00 Alkaline Phosphatase 81 U/L (45-117) 02/27/18 07:00 Total Protein 6.1 g/dl (6.4-8.2) L 02/27/18 07:00 Albumin 3.3 g/dl (3.4-5.0) L 02/27/18 07:00 Urine Color Jeanette 02/26/18 Unknown Urine Appearance Slcloudy 02/26/18 Unknown Urine pH 5.0 (5.0-8.0) 02/26/18 Unknown Ur Specific [place] 1.031 (1.001-1.035) 02/26/18 Unknown Urine Protein 2+ (NEGATIVE) H 02/26/18 Unknown Urine Glucose (UA) Negative (NEGATIVE) 02/26/18 Unknown Urine Ketones Trace (NEGATIVE) H 02/26/18 Unknown Urine Blood Negative (NEGATIVE) 02/26/18 Unknown Urine Nitrite Negative (NEGATIVE) 02/26/18 Unknown Urine Bilirubin 4.0 (<2.0 mg/dL) 02/26/18 Unknown Urine Urobilinogen 2.0 mg/dL (0.2-1.0) 02/26/18 Unknown Ur Leukocyte Esterase Negative (NEGATIVE) 02/26/18 Unknown Urine WBC (Auto) 3 /hpf (3-5) 02/26/18 Unknown Urine RBC (Auto) 1 /hpf (0-3) 02/26/18 Unknown Ur Epithelial Cells Rare /HPF (FEW) 02/26/18 Unknown Calcium Oxalate Crystal Few /hpf (NONE SEEN) 02/26/18 Unknown Urine Bacteria Few /hpf (NONE SEEN) 02/26/18 Unknown Hyaline Casts 15 /lpf 02/26/18 Unknown Urine Mucus Many 02/26/18 Unknown RPR Titer Nonreactive (NONREACTIVE) 02/27/18 07:00 HIV 1&2 Antibody Screen Negative 02/27/18 07:00 HIV P24 Antigen Negative 02/27/18 07:00 Assessment: 02/28/18 12:34 Aox3 no distress no adventitious breath sounds full ROM + back pain Plan: increase PO fluids continue detox continue to monitor
[2018-02-28] MEDS: THIAMINE HCL 100 MG TABLET (FP) PO SCH (22:25)
[2018-02-28] MEDS: MIRTAZAPINE 30 MG TABLET (FP) PO SCH (22:25)
[2018-02-28] MEDS: PRAZOSIN HCL 1 MG CAPSULE PO SCH (22:25)
[2018-02-28] MEDS: LIDOCAINE PATCH REMOVAL MC SCH (22:27)
[2018-03-01] MEDS: CYCLOBENZAPRINE HCL 10 MG TABLET (FP) PO SCH ×2 (06:06→14:25)
[2018-03-01] MEDS ORDERED: METHADONE HCL 5 MG TABLET (FOR DETOX USE ONLY) PO ONE (10:00)
[2018-03-01] MEDS: diazePAM 5 MG TABLET PO PRN ×2 (10:13→16:53)
[2018-03-01] MEDS: SERTRALINE HCL 50 MG TABLET (FP) PO SCH (10:13)
[2018-03-01] MEDS: LIDOCAINE 5% TOPICAL PATCH TP SCH (10:13)
[2018-03-01] MEDS: PRENATAL VITAMINS W/ FOLIC ACID TABLET (FP) PO SCH (10:13)
[2018-03-01] MEDS ORDERED: CYCLOBENZAPRINE HCL 10 MG TABLET (FP) PO PRN (14:15)
--- NOTE | 2018-03-01 14:17 | PN ---
BHS Progress Note (SOAP) Subjective: patient reports backache, nausea and vomiting Objective: 03/01/18 14:17 nad , resting comfortably in bed aaox 3 Assessment: 03/01/18 14:17 opioid dependence Plan: continue methadone taper, prn cyclobenzaprine
[2018-03-01] MEDS: MIRTAZAPINE 30 MG TABLET (FP) PO SCH (22:06)
[2018-03-01] MEDS: PRAZOSIN HCL 1 MG CAPSULE PO SCH (22:06)
[2018-03-01] MEDS: THIAMINE HCL 100 MG TABLET (FP) PO SCH (22:08)
[2018-03-01] MEDS: LIDOCAINE PATCH REMOVAL MC SCH (22:08)
[2018-03-02] MEDS ORDERED: METHADONE HCL 10 MG TABLET (FOR DETOX USE ONLY) PO ONE (10:00)
[2018-03-02] MEDS: PRENATAL VITAMINS W/ FOLIC ACID TABLET (FP) PO SCH (10:14)
[2018-03-02] MEDS: LIDOCAINE 5% TOPICAL PATCH TP SCH (10:14)
[2018-03-02] MEDS: SERTRALINE HCL 50 MG TABLET (FP) PO SCH (10:14)
--- NOTE | 2018-03-02 15:29 | PN ---
BHS Progress Note (SOAP) Subjective: Nausea, diarrhea, body ache, chills, sweating, interrupted sleep Objective: 03/02/18 15:26 Last Vital Signs Temp Pulse Resp BP Pulse Ox 97.4 F L 82 18 125/78 03/02/18 13:59 03/02/18 13:59 03/02/18 13:59 03/02/18 13:59 Laboratory Tests 02/26/18 02/27/18 02/27/18 Unknown 07:00 07:00 WBC 6.2 RBC 3.96 L Hgb 13.3 Hct 39.4 MCV 99.3 H MCH 33.5 MCHC 33.7 RDW 13.0 Plt Count 246 D MPV 8.7 Sodium Potassium Chloride Carbon Dioxide Anion Gap BUN Creatinine Creat Clearance w eGFR Random Glucose Calcium Total Bilirubin AST ALT Alkaline Phosphatase Total Protein Albumin Urine Color Jeanette Urine Appearance Slcloudy Urine pH 5.0 Ur Specific [place] 1.031 Urine Protein 2+ H Urine Glucose (UA) Negative Urine Ketones Trace H Urine Blood Negative Urine Nitrite Negative Urine Bilirubin 4.0 Urine Urobilinogen 2.0 Ur Leukocyte Esterase Negative Urine WBC (Auto) 3 Urine RBC (Auto) 1 Ur Epithelial Cells Rare Calcium Oxalate Crystal Few Urine Bacteria Few Hyaline Casts 15 Urine Mucus Many RPR Titer HIV 1&2 Antibody Screen Negative HIV P24 Antigen Negative 02/27/18 02/27/18 07:00 07:00 WBC RBC Hgb Hct MCV MCH MCHC RDW Plt Count MPV Sodium 145 Potassium 4.1 Chloride 109 H Carbon Dioxide 26 Anion Gap 10 BUN 20 H Creatinine 0.7 Creat Clearance w eGFR > 60 Random Glucose 124 H D Calcium 8.3 L Total Bilirubin 0.2 AST 15 ALT 19 Alkaline Phosphatase 81 Total Protein 6.1 L Albumin 3.3 L Urine Color Urine Appearance Urine pH Ur Specific [place] Urine Protein Urine Glucose (UA) Urine Ketones Urine Blood Urine Nitrite Urine Bilirubin Urine Urobilinogen Ur Leukocyte Esterase Urine WBC (Auto) Urine RBC (Auto) Ur Epithelial Cells Calcium Oxalate Crystal Urine Bacteria Hyaline Casts Urine Mucus RPR Titer Nonreactive HIV 1&2 Antibody Screen HIV P24 Antigen Labs reviewed: bun 20, abnormal UA Assessment: 03/02/18 15:27 Withdrawal symptoms Noted with azotemia and abnormal UA Plan: Continue detox Azotemia: encouraged PO water intake Abnormal UA: repeat UA
[2018-03-02] MEDS: LIDOCAINE PATCH REMOVAL MC SCH (22:14)
[2018-03-02] MEDS: MIRTAZAPINE 30 MG TABLET (FP) PO SCH (22:15)
[2018-03-02] MEDS: PRAZOSIN HCL 1 MG CAPSULE PO SCH (22:15)
[2018-03-02] MEDS: THIAMINE HCL 100 MG TABLET (FP) PO SCH (22:15)
[2018-03-03] MEDS ORDERED: METHADONE HCL 5 MG TABLET (FOR DETOX USE ONLY) PO ONE (06:00)
[2018-03-03 09:13] VITALS: BP 112/74; PULSE 80; TEMP 97.3
[2018-03-03] MEDS: SERTRALINE HCL 50 MG TABLET (FP) PO SCH (10:13)
[2018-03-03] MEDS: LIDOCAINE 5% TOPICAL PATCH TP SCH (10:13)
[2018-03-03] MEDS: PRENATAL VITAMINS W/ FOLIC ACID TABLET (FP) PO SCH (10:13)
[2018-03-03 10:32] LABS: URINE APPEARANCE CLEAR; URINE BILIRUBIN NEGATIVE (<2.0 mg/dL); URINE COLOR LTYELLOW; URINE GLUCOSE (UA) NEGATIVE (NEGATIVE); URINE KETONE NEGATIVE (NEGATIVE); URINE LEUK ESTERASE NEGATIVE (NEGATIVE); URINE NITRITE NEGATIVE (NEGATIVE); URINE PROTEIN NEGATIVE (NEGATIVE); URINE UROBILINOGEN NEGATIVE mg/dL (0.2-1.0)
== END 2018-03-03 12:45 | disposition other institution (70) | DRG 773 ==
LOC: YASAS 15:28 → Y3N 20:43
PROC: HZ2ZZZZ Detoxification Services for Substance Abuse Treatment (ICD-10-PCS; principal; 2018-02-26)
DX: F11.23 Opioid dependence with withdrawal (principal); F17.213 Nicotine dependence, cigarettes, with withdrawal; F43.12 Post-traumatic stress disorder, chronic; F33.9 Major depressive disorder, recurrent, unspecified; F41.8 Other specified anxiety disorders; M54.5 Low back pain; G62.9 Polyneuropathy, unspecified; R82.90 Unspecified abnormal findings in urine; R79.89 Other specified abnormal findings of blood chemistry; Z87.820 Personal history of traumatic brain injury; Z86.69 Personal history of other diseases of the nervous system and sense organs
CPT/HCPCS: 36415; 80053; 81003; 81015; 85027; 86593; 87389; 93005; 93010

== ENCOUNTER 2018-03-03 12:48 | Inpatient (IN) | payer OTHER ==
--- NOTE | 2018-03-03 14:37 | PN ---
[facility] Progress Note Note: Requested by nursing staff to order medications for newly admitted patient from detox. Medication reconciliation done. Zoloft 50 mg po daily, Remeron 30 mg po HS and Prazocin 1 mg po HS ordered for patient
--- NOTE | 2018-03-03 15:28 | PN ---
BHS Progress Note (SOAP) Subjective: no complains offered Not in distress Vital Signs Temperature 99.2 F 03/03/18 14:11 Pulse Rate 83 03/03/18 14:11 Respiratory Rate 18 03/03/18 14:11 Blood Pressure 123/78 03/03/18 14:11 O2 Sat by Pulse Oximetry (%) detox safely completed for discharge
--- NOTE | 2018-03-03 15:30 | DS ---
[facility] Detox Discharge Summary Admission Date: 03/03/18 Discharge Date: 03/03/18 - History Additional Comments: for discharge today Will do Rehab at [facility] - Physical Exam Results Vital Signs: Vital Signs Temperature 99.2 F 03/03/18 14:11 Pulse Rate 83 03/03/18 14:11 Respiratory Rate 18 03/03/18 14:11 Blood Pressure 123/78 03/03/18 14:11 O2 Sat by Pulse Oximetry (%) Pertinent Admission Physical Exam Findings: withdrawal sx - Treatment Hospital Course: Detox Protocol Followed, Detoxed Safely, Responded well, Discharged Condition Good, Rehab Referral Accepted Patient has Accepted a Rehab Referral to: [facility] - Medication Discharge Medications: Ambulatory Orders Prazosin HCl [Minipress] 1 mg PO HS 09/22/16 Sertraline HCl [Zoloft -] 50 mg PO DAILY 02/26/18 Mirtazapine [Remeron -] 30 mg PO HS 03/03/18 - Diagnosis (1) Abnormal finding on urinalysis Current Visit: No Status: Acute (2) Alcohol dependence with uncomplicated withdrawal Current Visit: No Status: Acute (3) Cocaine dependence, uncomplicated Current Visit: No Status: Acute (4) Opioid dependence with withdrawal Current Visit: No Status: Acute (5) Back pain Current Visit: No Status: Chronic - AMA Did Patient Leave Against Medical Advice: No
[2018-03-03] MEDS ORDERED: MAG HYDROX/AL HYDROX/SIMETH 30 ML UNIT-DOSE CUP PO PRN (16:15)
[2018-03-03] MEDS ORDERED: ACETAMINOPHEN 325 MG TABLET (FP) PO PRN (16:15)
[2018-03-03] MEDS ORDERED: P-EPHED 60MG/TRIPROLIDI 2.5MG TABLET PO PRN (16:15)
[2018-03-03] MEDS ORDERED: MAGNESIUM HYDROX 2400MG/30ML ORAL SUSPENSION 30 ML CUP PO PRN (16:15)
[2018-03-03] MEDS ORDERED: LOPERAMIDE HCL 2 MG CAPSULE PO PRN (16:15)
[2018-03-03] MEDS ORDERED: MAGNESIUM CITRATE 300 ML BOTTLE PO PRN (16:15)
[2018-03-03] MEDS ORDERED: guaiFENesin/D-METHORPHAN HB 10 ML UNIT-DOSE CUPS PO PRN (16:15)
[2018-03-03] MEDS ORDERED: MENTHOL/PHENOL 1 EACH UD MM PRN (16:15)
[2018-03-03] MEDS ORDERED: NICOTINE POLACRILEX 2 MG GUM BUC PRN (16:15)
[2018-03-03] MEDS ORDERED: MIRTAZAPINE 15 MG TABLET (FP) ONE (20:20)
[2018-03-03] MEDS ORDERED: MIRTAZAPINE 30 MG TABLET (FP) PO SCH (22:00)
[2018-03-03] MEDS: THIAMINE HCL 100 MG TABLET (FP) PO SCH (22:15)
[2018-03-03] MEDS: PRAZOSIN HCL 1 MG CAPSULE PO SCH (22:15)
[2018-03-03] MEDS: MIRTAZAPINE 30 MG TABLET (FP) PO SCH (22:15)
[2018-03-03] MEDS: MELATONIN 5 MG TABLETS PO PRN (22:16)
--- NOTE | 2018-03-04 07:43 | HP ---
Psychiatrist Admission - Data Date of interview: 03/04/18 Admission source: 6N Identifying data: This is the third [facility] admission for this 57 years old single male, unemployed on SSI/[employer] pension, homeless Medical History: Significant for chronic low back & neck pain, neuropathy, traumatic brain injury in 1982, seizure disorder and left inguinal herniorraphy as a child. Smokes cigarettes 1 ppd Psychiatric History: Reports being diagnosed with MDD and PTSD in 2010(wounded in combat during tour of duty in [facility] in 1982). Reports 2 previous psychiatric admissions. Most recent admission was in 2013 at [facility] in [place], [place]. Reports receiving OPD care at [facility] in the past. No OPD care at present but take zoloft, Remeron and Prazocin. He was discharged from inpatient rehab at [facility] earlier this month on Zoloft 50 mg po daily, Remeron 30 mg po HS, Gabapentin 900 mg po QID and Prazosin 1 mg po HS. He saw BARBIE Wheeler on 02/27/18 while in detox and was continued on Zoloft, Remeron and Prazosin. He requests to continue taking Zoloft , Remeron and Prazosin during this rehab stay. He does not want to resume Gabapentin. Denies previous suicidal attempt. At present, reports feeling anxious and sleeping poorly if not on medications Physical/Sexual Abuse/Trauma History: Denies history of emotional, physical or sexual abuse as well as DV relationship. Reports serving in the [employer] from 1976 to 1983. Traumatized by his war experiences in [facility] (1982). Additional Comment: Reports history of 3-4 previous arrests including 2 felony convictions. Denies being on probation/parle at present Vital Signs: Vital Signs - 24 hr 03/03/18 03/03/18 03/04/18 14:11 21:41 06:51 Temperature 99.2 F 97.8 F Pulse Rate 83 71 72 Respiratory 18 18 Rate Blood Pressure 123/78 138/76 108/68 Allergies/Adverse Reactions: Allergies Allergy/AdvReac Type Severity Reaction Status Date / Time Fish Containing Products Allergy Severe Rash Verified 03/03/18 14:12 trazodone Allergy Severe priapism Verified 03/03/18 14:12 gabapentin [From Neurontin] AdvReac Severe Depression Verified 03/03/18 14:12 pregabalin [From Lyrica] AdvReac Severe Depression Verified 03/03/18 14:12 ALL ANTIBIOTICS AdvReac Uncoded 08/27/17 09:39 Date of last physical exam: 02/26/18 Concur with the findings of this exam: Yes - Substance Abuse/Tx History Hx Alcohol Use: No Hx Substance Use: Yes Substance Use Type: Heroin (Started using heroin at age 32, consumes 10 bags daily. Last used on 02/25/18) Hx Substance Use Treatment: Yes (7 previous inpt detox & 2 inpt rehab) Mental Status Exam - Mental Status Exam Alert and Oriented to: Time, Place, Person Cognitive Function: Fair Patient Appearance: Disheveled Mood: Anxious Affect: Appropriate Patient Behavior: Cooperative Speech Pattern: Clear Voice Loudness: Normal Thought Process: Intact Thought Disorder: Not Present Hallucinations: Denies Suicidal Ideation: Denies Homicidal Ideation: Denies Insight/Judgement: Fair Sleep: Poorly Appetite: Good Muscle strength/Tone: Normal Gait/Station: Normal Psychiatric Findings - Problem List ([place] 1, 2,3) (1) Opioid dependence Current Visit: Yes Status: Acute (2) Nicotine dependence Current Visit: No Status: Chronic Qualifiers: Nicotine product type: cigarettes Substance use status: in withdrawal Qualified Code(s): F17.213 - Nicotine dependence, cigarettes, with withdrawal (3) MDD (major depressive disorder) Current Visit: No Status: Chronic Qualifiers: Major depression recurrence: recurrent Active/Remission status: remission status unspecified Qualified Code(s): F33.9 - Major depressive disorder, recurrent, unspecified (4) PTSD (post-traumatic stress disorder) Current Visit: No Status: Chronic (5) Substance-induced anxiety disorder Current Visit: Yes Status: Acute (6) Substance-induced sleep disorder Current Visit: Yes Status: Acute (7) Chronic bilateral low back pain Current Visit: Yes Status: Chronic (8) History of traumatic brain injury Current Visit: No Status: Chronic (9) Neuropathy Current Visit: No Status: Chronic (10) 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 2) Monitor progress
[2018-03-04] MEDS: PRENATAL VITAMINS W/ FOLIC ACID TABLET (FP) PO SCH (10:09)
[2018-03-04] MEDS: SERTRALINE HCL 50 MG TABLET (FP) PO SCH (10:09)
[2018-03-04] MEDS: NICOTINE 21 MG/24 HOURS TOPICAL PATCH TD SCH (10:09)
[2018-03-04] MEDS: LIDOCAINE 5% TOPICAL PATCH TP SCH (10:09)
[2018-03-04] MEDS: PRAZOSIN HCL 1 MG CAPSULE PO SCH (21:16)
[2018-03-04] MEDS: MIRTAZAPINE 30 MG TABLET (FP) PO SCH (21:16)
[2018-03-04] MEDS: MELATONIN 5 MG TABLETS PO PRN (21:17)
[2018-03-04] MEDS: THIAMINE HCL 100 MG TABLET (FP) PO SCH (21:17)
[2018-03-04] MEDS: LIDOCAINE PATCH REMOVAL MC SCH (21:17)
[2018-03-05] MEDS: PRENATAL VITAMINS W/ FOLIC ACID TABLET (FP) PO SCH (09:55)
[2018-03-05] MEDS: SERTRALINE HCL 50 MG TABLET (FP) PO SCH (09:55)
[2018-03-05] MEDS: NICOTINE 21 MG/24 HOURS TOPICAL PATCH TD SCH (09:55)
[2018-03-05] MEDS: LIDOCAINE 5% TOPICAL PATCH TP SCH (09:56)
[2018-03-05] MEDS: LIDOCAINE PATCH REMOVAL MC SCH (21:21)
[2018-03-05] MEDS: PRAZOSIN HCL 1 MG CAPSULE PO SCH (21:21)
[2018-03-05] MEDS: THIAMINE HCL 100 MG TABLET (FP) PO SCH (21:21)
[2018-03-05] MEDS: MIRTAZAPINE 30 MG TABLET (FP) PO SCH (21:21)
[2018-03-06] MEDS: PRENATAL VITAMINS W/ FOLIC ACID TABLET (FP) PO SCH (09:58)
[2018-03-06] MEDS: SERTRALINE HCL 50 MG TABLET (FP) PO SCH (09:58)
[2018-03-06] MEDS: NICOTINE 21 MG/24 HOURS TOPICAL PATCH TD SCH (09:59)
[2018-03-06] MEDS: LIDOCAINE 5% TOPICAL PATCH TP SCH (10:00)
[2018-03-06] MEDS: MIRTAZAPINE 30 MG TABLET (FP) PO SCH (21:22)
[2018-03-06] MEDS: PRAZOSIN HCL 1 MG CAPSULE PO SCH (21:22)
[2018-03-06] MEDS: THIAMINE HCL 100 MG TABLET (FP) PO SCH (21:22)
[2018-03-06] MEDS: MELATONIN 5 MG TABLETS PO PRN (21:23)
[2018-03-06] MEDS: LIDOCAINE PATCH REMOVAL MC SCH (21:23)
[2018-03-07] MEDS: SERTRALINE HCL 50 MG TABLET (FP) PO SCH (09:53)
[2018-03-07] MEDS: PRENATAL VITAMINS W/ FOLIC ACID TABLET (FP) PO SCH (09:53)
[2018-03-07] MEDS: LIDOCAINE 5% TOPICAL PATCH TP SCH (09:53)
[2018-03-07] MEDS: NICOTINE 21 MG/24 HOURS TOPICAL PATCH TD SCH (09:53)
[2018-03-07] MEDS: MIRTAZAPINE 30 MG TABLET (FP) PO SCH (21:19)
[2018-03-07] MEDS: THIAMINE HCL 100 MG TABLET (FP) PO SCH (21:19)
[2018-03-07] MEDS: LIDOCAINE PATCH REMOVAL MC SCH (21:19)
[2018-03-07] MEDS: PRAZOSIN HCL 1 MG CAPSULE PO SCH (21:19)
[2018-03-08] MEDS: NICOTINE 21 MG/24 HOURS TOPICAL PATCH TD SCH (09:52)
[2018-03-08] MEDS: LIDOCAINE 5% TOPICAL PATCH TP SCH (09:52)
[2018-03-08] MEDS: SERTRALINE HCL 50 MG TABLET (FP) PO SCH (09:52)
[2018-03-08] MEDS: PRENATAL VITAMINS W/ FOLIC ACID TABLET (FP) PO SCH (09:52)
[2018-03-08] MEDS: IBUPROFEN 400 MG TABLET (FP) PO PRN (09:53)
[2018-03-08] MEDS: MIRTAZAPINE 30 MG TABLET (FP) PO SCH (21:22)
[2018-03-08] MEDS: MELATONIN 5 MG TABLETS PO PRN (21:22)
[2018-03-08] MEDS: THIAMINE HCL 100 MG TABLET (FP) PO SCH (21:22)
[2018-03-08] MEDS: LIDOCAINE PATCH REMOVAL MC SCH (21:22)
[2018-03-08] MEDS: PRAZOSIN HCL 1 MG CAPSULE PO SCH (21:23)
[2018-03-09] MEDS: PRENATAL VITAMINS W/ FOLIC ACID TABLET (FP) PO SCH (10:03)
[2018-03-09] MEDS: NICOTINE 21 MG/24 HOURS TOPICAL PATCH TD SCH (10:03)
[2018-03-09] MEDS: SERTRALINE HCL 50 MG TABLET (FP) PO SCH (10:03)
[2018-03-09] MEDS: IBUPROFEN 400 MG TABLET (FP) PO PRN (10:04)
[2018-03-09] MEDS: LIDOCAINE 5% TOPICAL PATCH TP SCH (10:04)
--- NOTE | 2018-03-09 17:32 | PN ---
BHS Progress Note Note: Psychiatric nurse practitioner note: Chart reviewed. Patient c/o difficulty sleeping. Will increase melatonin dose. Will order Melatonin 10mg for insomnia.
[2018-03-09] MEDS: MIRTAZAPINE 30 MG TABLET (FP) PO SCH (21:21)
[2018-03-09] MEDS: THIAMINE HCL 100 MG TABLET (FP) PO SCH (21:21)
[2018-03-09] MEDS: PRAZOSIN HCL 1 MG CAPSULE PO SCH (21:22)
[2018-03-09] MEDS: LIDOCAINE PATCH REMOVAL MC SCH (21:22)
[2018-03-09] MEDS: MELATONIN 5 MG TABLETS PO PRN (21:23)
[2018-03-10] MEDS: NICOTINE 21 MG/24 HOURS TOPICAL PATCH TD SCH (10:44)
[2018-03-10] MEDS: PRENATAL VITAMINS W/ FOLIC ACID TABLET (FP) PO SCH (10:44)
[2018-03-10] MEDS: LIDOCAINE 5% TOPICAL PATCH TP SCH (10:44)
[2018-03-10] MEDS: SERTRALINE HCL 50 MG TABLET (FP) PO SCH (10:44)
--- NOTE | 2018-03-10 13:06 | PN ---
BHS Progress Note Note: PT C/O INSOMNIA AND DECLINED TO ADDRESS CHRONIC PAIN AT THIS TIME. STATES "I JUST WANT SOMETHING TO HELP ME SLEEP". ALERT O X 3. NAD. Vital Signs 03/10/18 06:37 Temperature 97.8 F Pulse Rate 58 L Respiratory 18 Rate Blood Pressure 129/80 PLAN:PSYCH CONSULT FOR FOLLOW UP RE: INSOMNIA
[2018-03-10] MEDS ORDERED: hydrOXYzine PAMOATE 50 MG CAPSULE (FP) PO PRN (15:10)
--- NOTE | 2018-03-10 15:17 | PN ---
Psychiatric Progress Note Vital Signs: Vital Signs Period Temp Pulse Resp BP Sys/Capone Pulse Ox Last 24 Hr 97.8 F 58-73 18-18 129-137/80-82 Date of Session: 03/10/18 Chief Complaint:: lorin not sleeping,am very anxious. HPI: patient addressed opioid dependence,alcohol abuse comorbid with PTSD, substance induced mood disorder. ROS: H/O brain injury. Current Medications: Active Medications Generic Name Dose Route Start Last Admin Trade Name Freq PRN Reason Stop Dose Admin Acetaminophen 650 mg 03/03/18 16:15 Tylenol - PO Q4H PRN FEVER Al Hydroxide/Mg Hydroxide 30 ml 03/03/18 16:15 Mylanta Oral Suspension - PO Q6H PRN DYSPEPSIA Eucalyptus/Menthol/Phenol/Sorbitol 1 each 03/03/18 16:15 Cepastat Lozenge - MM Q4H PRN SORE THROAT Guaifenesin 10 ml 03/03/18 16:15 Robitussin Dm - PO Q6H PRN COUGH Hydroxyzine Pamoate 50 mg 03/10/18 15:10 Vistaril - PO Q4H PRN ANXIETY Ibuprofen 400 mg 03/03/18 16:15 03/09/18 10:04 Motrin - PO 400 mg Q6H PRN Administration Pain Level 4-6 Lidocaine 1 patch 03/04/18 10:00 03/10/18 10:44 Lidoderm Patch - TP Not Given DAILY MANDA Loperamide HCl 4 mg 03/03/18 16:15 Imodium - PO Q6H PRN DIARRHEA Magnesium Citrate 300 ml 03/03/18 16:15 Citroma - PO Q48H PRN CONSTIPATION Magnesium Hydroxide 30 ml 03/03/18 16:15 Milk Of Magnesia - PO DAILY PRN CONSTIPATION Melatonin 10 mg 03/09/18 22:00 03/09/18 21:23 Melatonin PO 10 mg HS PRN Administration INSOMNIA Mirtazapine 30 mg 03/03/18 22:00 03/09/18 21:21 Remeron - PO 30 mg HS MANDA Administration Miscellaneous 1 each 03/04/18 22:00 03/09/18 21:22 Lidoderm Patch Removal MC Not Given DAILY@2200 MANDA Nicotine 21 mg 03/04/18 10:00 03/10/18 10:44 Nicoderm Patch - TD Not Given DAILY MANDA Nicotine Polacrilex 2 mg 03/03/18 16:15 Nicorette Gum - BUC Q2H PRN NICOTINE REPLACEMENT RX Prazosin HCl 1 mg 03/03/18 22:00 03/09/18 21:22 Minipress - PO 1 mg HS MANDA Administration Multivit/Folic Acid/Iron 1 tab 03/04/18 10:00 03/10/18 10:44 Vitamins (Sjr) - PO 1 tab DAILY MANDA Administration Pseudoephedrine/Triprolidine 1 combo 03/03/18 16:15 Actifed - PO TID PRN NASAL CONGESTION Sertraline HCl 50 mg 03/04/18 10:00 03/10/18 10:44 Zoloft - PO 50 mg DAILY MANDA Administration Suvorexant 10 mg 03/10/18 22:00 Belsomra PO 03/16/18 23:59 HS MANDA Thiamine HCl 100 mg 03/03/18 22:00 03/09/18 21:21 Vitamin B1 - PO 100 mg HS MANDA Administration Current Side Effect: No Lab tests ordered: No Lab tests reviewed: Yes Provider note:: Chart was revuewed ,'s notes appreciated.patient was seen to address ongoing sleeping difficulties -inability to fall asleep and interrupted sleep pattern.he also reports being anxious all the time.Treatment plan has been discussd with the patient including medication management.patient will continue remeron 30 mg po hs,zoloft 50 mg po daily.properties of belsomra has been discussed with the patient including side effects,benefits and dose adjustment. Belsomra 10 mg po hs will be started tonight.Vistaril 50 mg po q 4 hrs prn for anxiety. supportive therapy provided. Total face to face time:: 35 Mental Status Exam - Mental Status Exam Alert and Oriented to: Time, Place, Person Cognitive Function: Grossly Intact Patient Appearance: Well Groomed Mood: Anxious Affect: Mood Congruent, Labile Patient Behavior: Cooperative Speech Pattern: Clear Voice Loudness: Normal Thought Process: Goal Oriented Thought Disorder: Not Present Hallucinations: Denies Suicidal Ideation: Denies Homicidal Ideation: Denies Insight/Judgement: Fair Sleep: Difficulty falling asleep Appetite: Good Muscle strength/Tone: Normal Gait/Station: Normal Psychiatric Treatment Plan - Problem List (1) Opioid dependence Current Visit: Yes (2) Substance-induced sleep disorder Current Visit: Yes (3) Chronic bilateral low back pain Current Visit: Yes (4) PTSD (post-traumatic stress disorder) Current Visit: Yes (5) Neuropathy Current Visit: Yes (6) Nicotine dependence Current Visit: Yes Qualifiers: Nicotine product type: cigarettes Substance use status: in withdrawal Qualified Code(s): F17.213 - Nicotine dependence, cigarettes, with withdrawal (7) History of seizure Current Visit: Yes
[2018-03-10] MEDS: SUVOREXANT 10 MG TABLET PO SCH (21:21)
[2018-03-10] MEDS: IBUPROFEN 400 MG TABLET (FP) PO PRN (21:22)
[2018-03-10] MEDS: THIAMINE HCL 100 MG TABLET (FP) PO SCH (21:22)
[2018-03-10] MEDS: MELATONIN 5 MG TABLETS PO PRN (21:22)
[2018-03-10] MEDS: MIRTAZAPINE 30 MG TABLET (FP) PO SCH (21:22)
[2018-03-10] MEDS: LIDOCAINE PATCH REMOVAL MC SCH (21:22)
[2018-03-10] MEDS: PRAZOSIN HCL 1 MG CAPSULE PO SCH (21:24)
[2018-03-11] MEDS: NICOTINE 21 MG/24 HOURS TOPICAL PATCH TD SCH (10:18)
[2018-03-11] MEDS: LIDOCAINE 5% TOPICAL PATCH TP SCH (10:18)
[2018-03-11] MEDS: SERTRALINE HCL 50 MG TABLET (FP) PO SCH (10:18)
[2018-03-11] MEDS: PRENATAL VITAMINS W/ FOLIC ACID TABLET (FP) PO SCH (10:18)
[2018-03-11] MEDS: LIDOCAINE PATCH REMOVAL MC SCH (21:12)
[2018-03-11] MEDS: THIAMINE HCL 100 MG TABLET (FP) PO SCH (21:12)
[2018-03-11] MEDS: PRAZOSIN HCL 1 MG CAPSULE PO SCH (21:12)
[2018-03-11] MEDS: SUVOREXANT 10 MG TABLET PO SCH (21:12)
[2018-03-11] MEDS: MIRTAZAPINE 30 MG TABLET (FP) PO SCH (21:12)
[2018-03-11] MEDS: MELATONIN 5 MG TABLETS PO PRN (21:13)
[2018-03-12] MEDS: NICOTINE 21 MG/24 HOURS TOPICAL PATCH TD SCH (10:05)
[2018-03-12] MEDS: SERTRALINE HCL 50 MG TABLET (FP) PO SCH (10:05)
[2018-03-12] MEDS: LIDOCAINE 5% TOPICAL PATCH TP SCH (10:05)
[2018-03-12] MEDS: PRENATAL VITAMINS W/ FOLIC ACID TABLET (FP) PO SCH (10:05)
[2018-03-12] MEDS: IBUPROFEN 400 MG TABLET (FP) PO PRN (10:06)
[2018-03-12] MEDS: SUVOREXANT 10 MG TABLET PO SCH (21:12)
[2018-03-12] MEDS: MIRTAZAPINE 30 MG TABLET (FP) PO SCH (21:12)
[2018-03-12] MEDS: PRAZOSIN HCL 1 MG CAPSULE PO SCH (21:12)
[2018-03-12] MEDS: THIAMINE HCL 100 MG TABLET (FP) PO SCH (21:12)
[2018-03-12] MEDS: MELATONIN 5 MG TABLETS PO PRN (21:13)
[2018-03-12] MEDS: LIDOCAINE PATCH REMOVAL MC SCH (21:13)
[2018-03-13] MEDS: LIDOCAINE 5% TOPICAL PATCH TP SCH (10:07)
[2018-03-13] MEDS: NICOTINE 21 MG/24 HOURS TOPICAL PATCH TD SCH (10:07)
[2018-03-13] MEDS: PRENATAL VITAMINS W/ FOLIC ACID TABLET (FP) PO SCH (10:07)
[2018-03-13] MEDS: IBUPROFEN 400 MG TABLET (FP) PO PRN ×2 (10:08→23:16)
[2018-03-13] MEDS: SERTRALINE HCL 50 MG TABLET (FP) PO SCH (10:08)
--- NOTE | 2018-03-13 14:05 | PN ---
Psychiatric Progress Note Vital Signs: Vital Signs Period Temp Pulse Resp BP Sys/Capone Pulse Ox Last 24 Hr 98.6 F 75-78 18-18 135-135/74-79 Date of Session: 03/13/18 Chief Complaint:: Insomnia HPI: Patient addressing Opioid Dependence comorbid with nicotine dependence, MDD , PTSD, Substance-induced Anxiety Disorder and Substance-Induced Sleep disorder ROS: Neuropathy, PPD+, Seizure Disorder Current Medications: Active Medications Generic Name Dose Route Start Last Admin Trade Name Freq PRN Reason Stop Dose Admin Acetaminophen 650 mg 03/03/18 16:15 Tylenol - PO Q4H PRN FEVER Al Hydroxide/Mg Hydroxide 30 ml 03/03/18 16:15 Mylanta Oral Suspension - PO Q6H PRN DYSPEPSIA Eucalyptus/Menthol/Phenol/Sorbitol 1 each 03/03/18 16:15 Cepastat Lozenge - MM Q4H PRN SORE THROAT Guaifenesin 10 ml 03/03/18 16:15 Robitussin Dm - PO Q6H PRN COUGH Hydroxyzine Pamoate 50 mg 03/10/18 15:10 03/10/18 17:24 Vistaril - PO 50 mg Q4H PRN Administration ANXIETY Ibuprofen 400 mg 03/03/18 16:15 03/13/18 10:08 Motrin - PO 400 mg Q6H PRN Administration Pain Level 4-6 Lidocaine 1 patch 03/04/18 10:00 03/13/18 10:07 Lidoderm Patch - TP Not Given DAILY MANDA Loperamide HCl 4 mg 03/03/18 16:15 Imodium - PO Q6H PRN DIARRHEA Magnesium Citrate 300 ml 03/03/18 16:15 Citroma - PO Q48H PRN CONSTIPATION Magnesium Hydroxide 30 ml 03/03/18 16:15 Milk Of Magnesia - PO DAILY PRN CONSTIPATION Melatonin 10 mg 03/09/18 22:00 03/12/18 21:13 Melatonin PO 10 mg HS PRN Administration INSOMNIA Mirtazapine 30 mg 03/03/18 22:00 03/12/18 21:12 Remeron - PO 30 mg HS MANDA Administration Miscellaneous 1 each 03/04/18 22:00 03/12/18 21:13 Lidoderm Patch Removal MC Not Given DAILY@2200 MANDA Nicotine 21 mg 03/04/18 10:00 03/13/18 10:07 Nicoderm Patch - TD Not Given DAILY MANDA Nicotine Polacrilex 2 mg 03/03/18 16:15 Nicorette Gum - BUC Q2H PRN NICOTINE REPLACEMENT RX Prazosin HCl 1 mg 03/03/18 22:00 03/12/18 21:12 Minipress - PO 1 mg HS MANDA Administration Multivit/Folic Acid/Iron 1 tab 03/04/18 10:00 03/13/18 10:07 Vitamins (Sjr) - PO 1 tab DAILY MANDA Administration Pseudoephedrine/Triprolidine 1 combo 03/03/18 16:15 Actifed - PO TID PRN NASAL CONGESTION Sertraline HCl 50 mg 03/04/18 10:00 03/13/18 10:08 Zoloft - PO 50 mg DAILY MANDA Administration Thiamine HCl 100 mg 03/03/18 22:00 03/12/18 21:12 Vitamin B1 - PO 100 mg HS MANDA Administration Zolpidem Tartrate 10 mg 03/13/18 22:00 Ambien - PO HS PRN INSOMNIA Current Side Effect: No Lab tests ordered: Yes Lab tests reviewed: Yes Provider note:: Patient reports dificulty to sleep despite taking Belsomra. Claims that his sleep got worse on that medication. 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 Reports good response to Ambien in the past. So Ambien 10 mg po HS prn for insomnia is ordered Total face to face time:: 15 Mental Status Exam - Mental Status Exam Alert and Oriented to: Time, Place, Person Cognitive Function: Fair Patient Appearance: Well Groomed Mood: Hopeful, Euthymic Affect: Appropriate Patient Behavior: Cooperative Speech Pattern: Clear Voice Loudness: Normal Thought Process: Intact Thought Disorder: Not Present Hallucinations: Denies Suicidal Ideation: Denies Homicidal Ideation: Denies Insight/Judgement: Fair Sleep: Poorly Appetite: Good Muscle strength/Tone: Normal Gait/Station: Normal Psychiatric Treatment Plan - Problem List (1) Opioid dependence Current Visit: Yes (2) Nicotine dependence Current Visit: Yes Qualifiers: Nicotine product type: cigarettes Substance use status: in withdrawal Qualified Code(s): F17.213 - Nicotine dependence, cigarettes, with withdrawal (3) MDD (major depressive disorder) Current Visit: No Qualifiers: Major depression recurrence: recurrent Active/Remission status: remission status unspecified Qualified Code(s): F33.9 - Major depressive disorder, recurrent, unspecified (4) PTSD (post-traumatic stress disorder) Current Visit: No (5) Substance-induced anxiety disorder Current Visit: Yes (6) Substance-induced sleep disorder Current Visit: Yes (7) Chronic bilateral low back pain Current Visit: Yes (8) History of traumatic brain injury Current Visit: No (9) Neuropathy Current Visit: Yes (10) PPD positive Current Visit: No (11) History of seizure Current Visit: Yes Initial treatment plan: 1) Discontinue Belsonra. 2) Start Ambien 10 mg po HS prn for insomnia. 3) Monitor progress
[2018-03-13] MEDS: MIRTAZAPINE 30 MG TABLET (FP) PO SCH (21:16)
[2018-03-13] MEDS: THIAMINE HCL 100 MG TABLET (FP) PO SCH (21:16)
[2018-03-13] MEDS: LIDOCAINE PATCH REMOVAL MC SCH (21:17)
[2018-03-13] MEDS: PRAZOSIN HCL 1 MG CAPSULE PO SCH (21:17)
[2018-03-13] MEDS: ZOLPIDEM TARTRATE 10 MG TABLET (PARK CARE ONLY) PO PRN (21:20)
[2018-03-14] MEDS: NICOTINE 21 MG/24 HOURS TOPICAL PATCH TD SCH (09:48)
[2018-03-14] MEDS: LIDOCAINE 5% TOPICAL PATCH TP SCH (09:48)
[2018-03-14] MEDS: PRENATAL VITAMINS W/ FOLIC ACID TABLET (FP) PO SCH (09:48)
[2018-03-14] MEDS: SERTRALINE HCL 50 MG TABLET (FP) PO SCH (09:49)
[2018-03-14] MEDS: IBUPROFEN 400 MG TABLET (FP) PO PRN ×2 (09:49→16:34)
[2018-03-14] MEDS: THIAMINE HCL 100 MG TABLET (FP) PO SCH (21:16)
[2018-03-14] MEDS: LIDOCAINE PATCH REMOVAL MC SCH (21:16)
[2018-03-14] MEDS: PRAZOSIN HCL 1 MG CAPSULE PO SCH (21:16)
[2018-03-14] MEDS: MIRTAZAPINE 30 MG TABLET (FP) PO SCH (21:16)
[2018-03-14] MEDS: ZOLPIDEM TARTRATE 10 MG TABLET (PARK CARE ONLY) PO PRN (21:16)
[2018-03-15] MEDS: LIDOCAINE 5% TOPICAL PATCH TP SCH (09:53)
[2018-03-15] MEDS: PRENATAL VITAMINS W/ FOLIC ACID TABLET (FP) PO SCH (09:53)
[2018-03-15] MEDS: SERTRALINE HCL 50 MG TABLET (FP) PO SCH (09:53)
[2018-03-15] MEDS: IBUPROFEN 400 MG TABLET (FP) PO PRN ×2 (09:54→21:22)
[2018-03-15] MEDS: NICOTINE 21 MG/24 HOURS TOPICAL PATCH TD SCH (11:23)
[2018-03-15] MEDS: MIRTAZAPINE 30 MG TABLET (FP) PO SCH (21:20)
[2018-03-15] MEDS: THIAMINE HCL 100 MG TABLET (FP) PO SCH (21:21)
[2018-03-15] MEDS: PRAZOSIN HCL 1 MG CAPSULE PO SCH (21:22)
[2018-03-15] MEDS: ZOLPIDEM TARTRATE 10 MG TABLET (PARK CARE ONLY) PO PRN (21:24)
[2018-03-15] MEDS: LIDOCAINE PATCH REMOVAL MC SCH (21:26)
[2018-03-16] MEDS: NICOTINE 21 MG/24 HOURS TOPICAL PATCH TD SCH (10:03)
[2018-03-16] MEDS: SERTRALINE HCL 50 MG TABLET (FP) PO SCH (10:03)
[2018-03-16] MEDS: IBUPROFEN 400 MG TABLET (FP) PO PRN ×2 (10:04→21:11)
[2018-03-16] MEDS: LIDOCAINE 5% TOPICAL PATCH TP SCH (10:52)
[2018-03-16] MEDS: PRENATAL VITAMINS W/ FOLIC ACID TABLET (FP) PO SCH (10:52)
[2018-03-16] MEDS: LIDOCAINE PATCH REMOVAL MC SCH (21:09)
[2018-03-16] MEDS: THIAMINE HCL 100 MG TABLET (FP) PO SCH (21:09)
[2018-03-16] MEDS: MIRTAZAPINE 30 MG TABLET (FP) PO SCH (21:10)
[2018-03-16] MEDS: ZOLPIDEM TARTRATE 10 MG TABLET (PARK CARE ONLY) PO PRN (21:10)
[2018-03-16] MEDS: PRAZOSIN HCL 1 MG CAPSULE PO SCH (21:11)
[2018-03-17 07:07] VITALS: BP 134/81; PULSE 96; TEMP 98.8
--- NOTE | 2018-03-17 08:48 | PN ---
Psychiatric Progress Note Vital Signs: Vital Signs Period Temp Pulse Resp BP Sys/Capone Pulse Ox Last 24 Hr 98.8 F 96 18-18 134/81 Date of Session: 03/17/18 Chief Complaint:: Discharge visit HPI: Patient addresed opioid dependence comorbid with PTSD,Substance inuced mood disorder. ROS: Back pain,Neuropathy. Current Medications: Active Medications Generic Name Dose Route Start Last Admin Trade Name Freq PRN Reason Stop Dose Admin Acetaminophen 650 mg 03/03/18 16:15 Tylenol - PO Q4H PRN FEVER Al Hydroxide/Mg Hydroxide 30 ml 03/03/18 16:15 Mylanta Oral Suspension - PO Q6H PRN DYSPEPSIA Eucalyptus/Menthol/Phenol/Sorbitol 1 each 03/03/18 16:15 Cepastat Lozenge - MM Q4H PRN SORE THROAT Guaifenesin 10 ml 03/03/18 16:15 Robitussin Dm - PO Q6H PRN COUGH Hydroxyzine Pamoate 50 mg 03/10/18 15:10 03/10/18 17:24 Vistaril - PO 50 mg Q4H PRN Administration ANXIETY Ibuprofen 400 mg 03/03/18 16:15 03/16/18 21:11 Motrin - PO 400 mg Q6H PRN Administration Pain Level 4-6 Lidocaine 1 patch 03/04/18 10:00 03/16/18 10:52 Lidoderm Patch - TP Not Given DAILY MANDA Loperamide HCl 4 mg 03/03/18 16:15 Imodium - PO Q6H PRN DIARRHEA Magnesium Citrate 300 ml 03/03/18 16:15 Citroma - PO Q48H PRN CONSTIPATION Magnesium Hydroxide 30 ml 03/03/18 16:15 Milk Of Magnesia - PO DAILY PRN CONSTIPATION Melatonin 10 mg 03/09/18 22:00 03/12/18 21:13 Melatonin PO 10 mg HS PRN Administration INSOMNIA Mirtazapine 30 mg 03/03/18 22:00 03/16/18 21:10 Remeron - PO 30 mg HS MANDA Administration Miscellaneous 1 each 03/04/18 22:00 03/16/18 21:09 Lidoderm Patch Removal MC Not Given DAILY@2200 MANDA Nicotine 21 mg 03/04/18 10:00 03/16/18 10:03 Nicoderm Patch - TD 21 mg DAILY MANDA Administration Nicotine Polacrilex 2 mg 03/03/18 16:15 Nicorette Gum - BUC Q2H PRN NICOTINE REPLACEMENT RX Prazosin HCl 1 mg 03/03/18 22:00 03/16/18 21:11 Minipress - PO 1 mg HS MANDA Administration Multivit/Folic Acid/Iron 1 tab 03/04/18 10:00 03/16/18 10:52 Vitamins (Sjr) - PO 1 tab DAILY MANDA Administration Pseudoephedrine/Triprolidine 1 combo 03/03/18 16:15 Actifed - PO TID PRN NASAL CONGESTION Sertraline HCl 50 mg 03/04/18 10:00 03/16/18 10:03 Zoloft - PO 50 mg DAILY MANDA Administration Thiamine HCl 100 mg 03/03/18 22:00 03/16/18 21:09 Vitamin B1 - PO 100 mg HS MANDA Administration Current Side Effect: No Lab tests ordered: No Lab tests reviewed: Yes Provider note:: Patient completed this program today.he has met his treatment goals and will continue to address his issues on [facility] term [facility] .patient reports finding that current medications: Zoloft 50 mg po daily and remeron 30 mg po hs help to cope with mood instability ,depression,anxiety.scripts for 30 days provided. Therapy provided focusing on relapse prevention. patient is stable for discharge today.. Mental Status Exam - Mental Status Exam Alert and Oriented to: Time, Place, Person Cognitive Function: Grossly Intact Patient Appearance: Well Groomed Mood: Euthymic Affect: Appropriate, Mood Congruent Patient Behavior: Appropriate, Cooperative Speech Pattern: Clear Voice Loudness: Normal Thought Process: Goal Oriented Thought Disorder: Not Present Hallucinations: Denies Suicidal Ideation: Denies Homicidal Ideation: Denies Insight/Judgement: Fair Sleep: Fair Appetite: Good Muscle strength/Tone: Normal Gait/Station: Normal Psychiatric Treatment Plan - Problem List (6) Nicotine dependence Qualifiers: Nicotine product type: cigarettes Substance use status: in withdrawal Qualified Code(s): F17.213 - Nicotine dependence, cigarettes, with withdrawal
[2018-03-17] MEDS: PRENATAL VITAMINS W/ FOLIC ACID TABLET (FP) PO SCH (09:02)
[2018-03-17] MEDS: NICOTINE 21 MG/24 HOURS TOPICAL PATCH TD SCH (09:02)
[2018-03-17] MEDS: LIDOCAINE 5% TOPICAL PATCH TP SCH (09:02)
[2018-03-17] MEDS: SERTRALINE HCL 50 MG TABLET (FP) PO SCH (09:02)
== END 2018-03-17 09:35 | disposition home or self-care (01) | DRG 772 ==
LOC: YASAS 12:48 → Y5N 12:49
PROVIDERS: ADMIT Psychiatry & Neurology Psychiatry; ATTEND Psychiatry & Neurology Psychiatry
PROC: HZ42ZZZ Group Counseling for Substance Abuse Treatment, Cognitive-Behavioral (ICD-10-PCS; principal; 2018-03-03)
DX: F11.20 Opioid dependence, uncomplicated (principal); F10.20 Alcohol dependence, uncomplicated; F14.20 Cocaine dependence, uncomplicated; F17.213 Nicotine dependence, cigarettes, with withdrawal; F19.282 Other psychoactive substance dependence with psychoactive substance-induced sleep disorder; F19.280 Other psychoactive substance dependence with psychoactive substance-induced anxiety disorder; F43.10 Post-traumatic stress disorder, unspecified; F33.9 Major depressive disorder, recurrent, unspecified; G47.00 Insomnia, unspecified; G62.9 Polyneuropathy, unspecified; M54.5 Low back pain; G89.29 Other chronic pain; R76.11 Nonspecific reaction to tuberculin skin test without active tuberculosis; Z86.69 Personal history of other diseases of the nervous system and sense organs; Z87.820 Personal history of traumatic brain injury; R82.90 Unspecified abnormal findings in urine

== ENCOUNTER 2018-06-23 09:35 | Inpatient (IN) | payer OTHER ==
[2018-06-23 09:56] VITALS: BMI 25.7
--- NOTE | 2018-06-23 10:05 | HP ---
COWS - Scale Resting Pulse: 1= [place] 81-100 Sweatin= Chills/Flushing Restless Observation: 3= Extraneous Movement Pupil Size: 1= Pupils >than Normal Bone or Joint Aches: 2= Severe Diffuse Aches Runny Nose/ Eye Tearin= Runny Nose/Eyes GI Upset > 30mins: 2= Nausea/Diarrhea Tremor Observation: 2= Slight Tremor Visible Yawning Observation: 2= >3x During Session Anxiety or Irritability: 2=Irritable/Anxious Goose Flesh Skin: 0=Smooth Skin COWS Score: 18 CIWA Score - Admission Criteria OASAS Guidelines: Admission for Medically Managed Detox: Requires at least one of the followin. CIWA greater than 12 2. Seizures within the past 24 hours 3. Delirium tremens within the past 24 hours 4. Hallucinations within the past 24 hours 5. Acute intervention needed for co occurring medical disorder 6. Acute intervention needed for co occurring psychiatric disorder 7. Severe withdrawal that cannot be handled at a lower level of care (continued vomiting, continued diarrhea, abnormal vital signs) requiring intravenous medication and/or fluids 8. Admission ROS S - HPI Chief Complaint: i need help to stop using heroin Allergies/Adverse Reactions: Allergies Allergy/AdvReac Type Severity Reaction Status Date / Time Fish Containing Products Allergy Severe Rash Verified 06/23/18 10:06 trazodone Allergy Severe priapism Verified 06/23/18 10:06 gabapentin [From Neurontin] AdvReac Severe Depression Verified 06/23/18 10:06 pregabalin [From Lyrica] AdvReac Severe Depression Verified 06/23/18 10:06 ALL ANTIBIOTICS AdvReac Uncoded 06/23/18 10:06 History of Present Illness: this 57 years old male with heroin dependence,seeking detox,withdrawal symptom, last detox [facility] 02/26/18 to 03/03/18,rehab 03/03/18 to 03/17/18 fell fx of right ribs 9th,1oth,11 th ribs right hearing loss both ears,no hearing aids nicotine dependence weight loss ptsd positive ppd had previous traumatic brain injury in 1983 seizure last 2016 longet period of sobriety 8 years arthritis chronic back pain Exam Limitations: No Limitations - Ebola screening Have you traveled outside of the country in the last 21 days: No Have you had contact with anyone from an Ebola affected area: No Have you been sick,other than usual withdrawal symptoms: No Do you have a fever: No - Review of Systems Constitutional: Chills, Loss of Appetite, Malaise, Night Sweats, Changes in sleep, Weakness, Unintentional Wgt. Loss EENT: reports: Tearing, Nose Congestion, Other (history of traumatic brain injury) Respiratory: reports: No Symptoms reported, Other (fx of right 9th,10th,11th ribs) Cardiac: reports: No Symptoms Reported GI: reports: No Symptoms Reported : reports: No Symptoms Reported Musculoskeletal: reports: Back Pain, Joint Pain, Muscle Pain, Joint Stiffness Integumentary: reports: Dryness Neuro: reports: Headache, Tremors Endocrine: reports: No Symptoms Reported Hematology: reports: No Symptoms Reported Psychiatric: reports: No Sypmtoms Reported, Judgement Intact, Mood/Affect Appropiate, Orientated x3, Depressed (panic attack) Other Systems: Reviewed and Negative Patient History - Patient Medical History Hx Anemia: No Hx Asthma: No Hx Chronic Obstructive Pulmonary Disease (COPD): No Hx Cancer: No Hx Cardiac Disorders: No Hx Congestive Heart Failure: No Hx Hypertension: No Hx Hypercholesterolemia: No Hx Pacemaker: No HX Cerebrovascular Accident: No Hx Seizures: Yes (r/t head trauma-last episode was in 11/2015) Hx Dementia: No Hx Diabetes: No Hx Gastrointestinal Disorders: No Hx Liver Disease: No Hx Genitourinary Disorders: No Hx Sexually Transmitted Disorders: No Hx Renal Disease (ESRD): No Hx Thyroid Disease: No Hx Human Immunodeficiency Virus (HIV): No (Last tested: 04/03: NEGATIVE.) Hx Hepatitis C: No (Last tested: 10/2016: NEGATIVE.) Hx Depression: Yes Hx Suicide Attempt: No Hx Bipolar Disorder: No Hx Schizophrenia: No Other Medical History: ptsd,panic depressive,no suicidal,no homicidal - Patient Surgical History Past Surgical History: Yes Hx Neurologic Surgery: No Hx Cataract Extraction: No Hx Cardiac Surgery: No Hx Lung Surgery: No Hx Breast Surgery: No Hx Breast Biopsy: No Hx Abdominal Surgery: Yes (LEFT INGUINAL HERNIA SX DURING CHILDHOOD.) Hx Appendectomy: No Hx Cholecystectomy: No Hx Genitourinary Surgery: No Hx Section: No Hx Orthopedic Surgery: No Other Surgical History: Hx of fall from height-war, Pt stated had trumatic brain injury, no surgery Anesthesia Reaction: No - PPD History Previous Implant?: Yes Documented Results: Positive w/proof Implanted On Prior [facility] Admission?: No Results: CXR:08/26/17 PPD to be Administered?: No - Smoking Cessation Smoking history: Current every day smoker Have you smoked in the past 12 months: Yes Aproximately how many cigarettes per day: 20 Cigars Per Day: 0 Hx Chewing Tobacco Use: No Initiated information on smoking cessation: Yes 'Breaking Loose' booklet given: 06/23/18 - Substance & Tx. History Hx Alcohol Use: No Hx Substance Use: Yes Substance Use Type: Heroin Hx Substance Use Treatment: Yes ([facility] 02/26/18 to 03/03/18 detox,rehab 03/03/18 to 03/17/18 ) - Substances Abused Heroin Route: Inhalation Frequency: Daily Amount used: 8 bags Age of first use: 30 Date of Last Use: 06/23/18 Alcohol Route: Oral Frequency: 1-2 times per week Amount used: 2-3 drinks Age of first use: 14 Date of Last Use: 06/22/18 Family Disease History - Family Disease History Family Disease History: Diabetes: Father ([place]; .), Heart Disease: Father , Other: Mother (.) Admission Physical Exam S - Vital Signs Vital Signs: Vital Signs - 24 hr 06/23/18 09:55 Temperature 97.0 F L Pulse Rate 93 H Respiratory 20 Rate Blood Pressure 119/74 - Physical General Appearance: Yes: Moderate Distress, Tremorous, Irritable, Sweating, Anxious HEENTM: Yes: Normal ENT Inspection, ARYAN, Pharynx Normal Respiratory: Yes: Lungs Clear, Normal Breath Sounds, No Respiratory Distress, Other (pain on right 9th,10th,11th ribs) Neck: Yes: Within Normal Limits, Supple, Trachea in good position Breast: Yes: Within Normal Limits Cardiology: Yes: Within Normal Limits, Regular Rhythm, Regular Rate, S1, S2 Abdominal: Yes: Within Normal Limits, Normal Bowel Sounds, Non Tender, Flat, Soft Genitourinary: Yes: Within Normal Limits Back: Yes: Muscle Spasm Musculoskeletal: Yes: Back pain, Joint Stiffness, Muscle Pain Extremities: Yes: Within Normal Limits, Normal Range of Motion, Tremors Neurological: Yes: it analyst II-XII NML intact, Alert, Motor Strength 5/5 Integumentary: Yes: Dry Lymphatic: Yes: Within Normal Limits - Diagnostic (1) Opioid dependence with withdrawal Current Visit: Yes Status: Acute (2) MDD (major depressive disorder) Current Visit: No Status: Chronic Qualifiers: Major depression recurrence: recurrent Active/Remission status: remission status unspecified Qualified Code(s): F33.9 - Major depressive disorder, recurrent, unspecified (3) Neuropathy Current Visit: No Status: Chronic (4) Nicotine dependence Current Visit: No Status: Chronic Qualifiers: Nicotine product type: cigarettes Substance use status: in withdrawal Qualified Code(s): F17.213 - Nicotine dependence, cigarettes, with withdrawal (5) PPD positive Current Visit: No Status: Chronic (6) PTSD (post-traumatic stress disorder) Current Visit: No Status: Chronic (7) History of seizure Current Visit: No Status: Suspected (8) History of traumatic brain injury Current Visit: Yes Status: Acute (9) History of rib fracture Current Visit: Yes Status: Acute Cleared for Admission S - Detox or Rehab [facility] Level of Care: Medically Managed Detox Regimen/Protocol: Methadone S Breath Alcohol Content Breath Alcohol Content: 0 Urine Drug Screen - Results Drug Screen Negative: No Urine Drug Screen Results: OPI-Opiates
[2018-06-23] MEDS ORDERED: MAGNESIUM CITRATE 300 ML BOTTLE PO PRN (10:26)
[2018-06-23] MEDS ORDERED: P-EPHED 60MG/TRIPROLIDI 2.5MG TABLET PO PRN (10:26)
[2018-06-23] MEDS ORDERED: MAGNESIUM HYDROX 2400MG/30ML ORAL SUSPENSION 30 ML CUP PO PRN (10:26)
[2018-06-23] MEDS ORDERED: ACETAMINOPHEN 325 MG TABLET (FP) PO PRN (10:26)
[2018-06-23] MEDS ORDERED: guaiFENesin/D-METHORPHAN HB 10 ML UNIT-DOSE CUPS PO PRN (10:26)
[2018-06-23] MEDS ORDERED: LOPERAMIDE HCL 2 MG CAPSULE PO PRN (10:26)
[2018-06-23] MEDS ORDERED: MAG HYDROX/AL HYDROX/SIMETH 30 ML UNIT-DOSE CUP PO PRN (10:26)
[2018-06-23] MEDS ORDERED: MENTHOL/PHENOL 1 EACH UD MM PRN (10:26)
[2018-06-23] MEDS ORDERED: METHADONE HCL 10 MG TABLET (FOR DETOX USE ONLY) PO ONE ×2 (12:30→23:00)
[2018-06-23] MEDS: diazePAM 5 MG TABLET PO PRN ×2 (12:33→17:38)
[2018-06-23] MEDS ORDERED: MELATONIN 5 MG TABLETS PO PRN (22:00)
[2018-06-23] MEDS: THIAMINE HCL 100 MG TABLET (FP) PO SCH (22:07)
[2018-06-24] MEDS: diazePAM 5 MG TABLET PO PRN ×4 (05:50→19:05)
--- NOTE | 2018-06-24 09:14 | CONSULT ---
[facility] Psychiatric Consult - Data Date of interview: 06/25/18 Admission source: [facility] Identifying data: Patient is a 57 year old single male, without children, retired (), homeless, and is supported by SSI and pension from . This is one of multiple admissions for patient. Patient admitted to for opiate dependence. Substance Abuse History: Smoking Cessation. Smoking history: Current every day smoker. Have you smoked in the past 12 months: Yes. Aproximately how many cigarettes per day: 20. Cigars Per Day: 0. Hx Chewing Tobacco Use: No. Initiated information on smoking cessation: Yes. 'Breaking Loose' booklet given : 06/23/18. - Substance & Tx. History. Hx Alcohol Use: No. Hx Substance Use: Yes. Substance Use Type: Heroin. Hx Substance Use Treatment: Yes ([facility] to 03/03/18 detox,rehab 03/03/18 to 03/17/18 ). - Substances Abused. Heroin. Route: Inhalation. Frequency: Daily. Amount used: 8 bags. Age of first use: 30. Date of Last Use: 06/23/18. Alcohol. Route: Oral. Frequency: 1-2 times per week. Amount used: 2-3 drinks. Age of first use: 14. Date of Last Use: 06/22/18 Medical History: Seizures (r/t head trauma-last episode was in 11/2015), Left inguinal hernia surgery during childhood Psychiatric History: Patient reports two psychiatric hospitalizations (2013 + 2014) to address PTSD at [facility] in [place], [place]. Most recent outpatient psychiatric care was six months ago at the [facility] in [place]. States he continues to accept zoloft 50mg + Mirtzapine 30mg and Prozasin 1 mg. He receives refills from other detox/rehab facilities. Mr. Stallings denies h/o suicide attempt. Physical/Sexual Abuse/Trauma History: Traumatized by war experience in [place], [place] ([place]). Additional Comment: Served in the [employer] from [id number]. Mental Status Exam - Mental Status Exam Alert and Oriented to: Time, Place, Person Cognitive Function: Good Patient Appearance: Well Groomed Mood: Euthymic Affect: Appropriate Patient Behavior: Appropriate, Cooperative Speech Pattern: Clear, Appropriate Voice Loudness: Normal Thought Process: Intact, Goal Oriented Thought Disorder: Not Present Hallucinations: Denies Suicidal Ideation: Denies Homicidal Ideation: Denies Insight/Judgement: Poor Sleep: Poorly Appetite: Fair Muscle strength/Tone: Normal Gait/Station: Normal Psychiatric Findings - Problem List ([place] 1, 2,3) (1) Opioid dependence with withdrawal Status: Acute (2) PTSD (post-traumatic stress disorder) Status: Chronic (3) Substance-induced sleep disorder Status: Acute (4) MDD (major depressive disorder) Status: Chronic Qualifiers: Major depression recurrence: recurrent Active/Remission status: remission status unspecified Qualified Code(s): F33.9 - Major depressive disorder, recurrent, unspecified (5) Nicotine dependence Status: Chronic Qualifiers: Nicotine product type: cigarettes Substance use status: in withdrawal Qualified Code(s): F17.213 - Nicotine dependence, cigarettes, with withdrawal - Initial Treatment Plan Initial Treatment Plan: Psychoeducation provided. Detoxification in progress. Will order zoloft 50mg + Mirtzapine 30mg hs + Prozasin 1mg + increase Melatonin to 10mg. Benefits and side effects discussed. Verbal consent given.
[2018-06-24] MEDS ORDERED: MELATONIN 5 MG TABLETS PO PRN (09:20)
[2018-06-24] MEDS ORDERED: METHADONE HCL 10 MG TABLET (FOR DETOX USE ONLY) PO ONE (10:00)
[2018-06-24 10:26] LABS: HEMATOCRIT 44.2 % (35.4-49); HEMOGLOBIN 14.4 GM/dL (11.7-16.9); MCH 32.7 pg (25.7-33.7); MCHC 32.6 g/dl (32.0-35.9); MEAN CELL VOLUME 100.4 fl (80-96); MEAN PLT VOLUME 9.8 fl (7.5-11.1); PLATELET COUNT 159 K/MM3 (134-434); RDW 14.1 % (11.9-15.9); WHITE BLOOD COUNT 8.1 K/mm3 (4.0-10.0)
[2018-06-24 10:35] LABS: ALBUMIN 3.4 g/dl (3.4-5.0); ALK PHOS 78 U/L (45-117); ANION GAP 5 MMOL/L (8-16); BILIRUBIN,TOTAL 0.4 mg/dL (0.2-1); BLOOD UREA NITROGEN 24 mg/dL (7-18); CALCIUM 8.2 mg/dL (8.5-10.1); CHLORIDE 108 mmol/L (98-107); CO2 28 mmol/L (21-32); CREATININE 0.9 mg/dL (0.55-1.3); GLUCOSE,RANDOM 64 mg/dL (74-106); POTASSIUM 4.3 mmol/L (3.5-5.1); SGOT/AST 13 U/L (15-37); SGPT/ALT 19 U/L (13-61); SODIUM 141 mmol/L (136-145); TOT PROT 5.7 g/dl (6.4-8.2)
[2018-06-24] MEDS: PRENATAL VITAMINS W/ FOLIC ACID TABLET (FP) PO SCH (10:46)
[2018-06-24] MEDS: SERTRALINE HCL 50 MG TABLET (FP) PO SCH (10:46)
--- NOTE | 2018-06-24 15:53 | PN ---
BHS COWS - Scale Resting Pulse: 1= [place] 81-100 Sweatin= Chills/Flushing Restless Observation: 1= Difficult to Sit Still Pupil Size: 0= Normal to Room Light Bone or Joint Aches: 2= Severe Diffuse Aches Runny Nose/ Eye Tearin= None GI Upset > 30mins: 2= Nausea/Diarrhea Tremor Observation of Outstretched Hands: 2= Slight Tremor Visible Yawning Observation: 1= 1-2x During Session Anxiety or Irritability: 2=Irritable/Anxious Goose Flesh Skin: 3=Piloerection COWS Score: 15 BHS Progress Note (SOAP) Subjective: Diarrhea, Nausea, Sweating, Interrupted Sleep, H/A, Body Aches. Objective: PATIENT A & O X 3, OBSERVED AMBULATING ON UNIT. IN NO ACUTE DISTRESS. 06/24/18 15:51 Vital Signs Temperature 97.9 F 06/24/18 15:30 Pulse Rate 83 06/24/18 15:30 Respiratory Rate 18 06/24/18 15:30 Blood Pressure 131/70 06/24/18 15:30 O2 Sat by Pulse Oximetry (%) Laboratory Tests 06/24/18 06/24/18 06/24/18 07:00 07:00 07:00 WBC 8.1 RBC 4.40 Hgb 14.4 Hct 44.2 MCV 100.4 H MCH 32.7 MCHC 32.6 RDW 14.1 Plt Count 159 D MPV 9.8 D Sodium 141 Potassium 4.3 Chloride 108 H Carbon Dioxide 28 Anion Gap 5 L BUN 24 H Creatinine 0.9 Creat Clearance w eGFR > 60 Random Glucose 64 L Calcium 8.2 L Total Bilirubin 0.4 AST 13 L ALT 19 Alkaline Phosphatase 78 Total Protein 5.7 L Albumin 3.4 RPR Titer Nonreactive LABS NOTED. Assessment: 06/24/18 15:52 WITHDRAWAL SYMPTOMS. Plan: CONTINUE DETOX. INCREASE DAILY PO FLUID INTAKE. PRN IMMODIUM FOR DIARRHEA.
[2018-06-24] MEDS: MIRTAZAPINE 30 MG TABLET (FP) PO SCH (22:18)
[2018-06-24] MEDS: PRAZOSIN HCL 1 MG CAPSULE PO SCH (22:18)
[2018-06-24] MEDS: THIAMINE HCL 100 MG TABLET (FP) PO SCH (22:19)
[2018-06-25] MEDS ORDERED: METHADONE HCL 5 MG TABLET (FOR DETOX USE ONLY) PO ONE (10:00)
[2018-06-25] MEDS: diazePAM 5 MG TABLET PO PRN ×4 (10:29→22:59)
[2018-06-25] MEDS: PRENATAL VITAMINS W/ FOLIC ACID TABLET (FP) PO SCH (10:29)
[2018-06-25] MEDS: SERTRALINE HCL 50 MG TABLET (FP) PO SCH (10:30)
--- NOTE | 2018-06-25 11:39 | PN ---
BHS COWS - Scale Resting Pulse: 1= [place] 81-100 Sweatin=Flushed/Facial Moisture Restless Observation: 1= Difficult to Sit Still Pupil Size: 0= Normal to Room Light Bone or Joint Aches: 2= Severe Diffuse Aches Runny Nose/ Eye Tearin= None GI Upset > 30mins: 2= Nausea/Diarrhea Tremor Observation of Outstretched Hands: 2= Slight Tremor Visible Yawning Observation: 2= >3x During Session Anxiety or Irritability: 2=Irritable/Anxious Goose Flesh Skin: 0=Smooth Skin COWS Score: 14 BHS Progress Note (SOAP) Subjective: chills sweats interrupted sleep body aches shakes anxiety Objective: 06/25/18 11:38 Vital Signs Temperature 98.2 F 06/25/18 09:31 Pulse Rate 92 H 06/25/18 09:31 Respiratory Rate 18 06/25/18 09:31 Blood Pressure 126/56 L 06/25/18 09:31 O2 Sat by Pulse Oximetry (%) Laboratory Tests 06/24/18 06/24/18 06/24/18 07:00 07:00 07:00 WBC 8.1 RBC 4.40 Hgb 14.4 Hct 44.2 MCV 100.4 H MCH 32.7 MCHC 32.6 RDW 14.1 Plt Count 159 D MPV 9.8 D Sodium 141 Potassium 4.3 Chloride 108 H Carbon Dioxide 28 Anion Gap 5 L BUN 24 H Creatinine 0.9 Creat Clearance w eGFR > 60 Random Glucose 64 L Calcium 8.2 L Total Bilirubin 0.4 AST 13 L ALT 19 Alkaline Phosphatase 78 Total Protein 5.7 L Albumin 3.4 RPR Titer Nonreactive aaox3 ambulating no acute distress Assessment: 06/25/18 11:39 withdrawal sx Plan: continue detox increase fluids
[2018-06-25] MEDS: IBUPROFEN 400 MG TABLET (FP) PO PRN (14:36)
[2018-06-25] MEDS: MIRTAZAPINE 30 MG TABLET (FP) PO SCH (22:20)
[2018-06-25] MEDS: THIAMINE HCL 100 MG TABLET (FP) PO SCH (22:20)
[2018-06-25] MEDS: PRAZOSIN HCL 1 MG CAPSULE PO SCH (22:20)
[2018-06-26] MEDS: diazePAM 5 MG TABLET PO PRN ×2 (06:17→10:15)
[2018-06-26] MEDS: IBUPROFEN 400 MG TABLET (FP) PO PRN (06:17)
[2018-06-26] MEDS ORDERED: METHADONE HCL 5 MG TABLET (FOR DETOX USE ONLY) PO ONE (10:00)
[2018-06-26] MEDS: PRENATAL VITAMINS W/ FOLIC ACID TABLET (FP) PO SCH (11:00)
[2018-06-26] MEDS: SERTRALINE HCL 50 MG TABLET (FP) PO SCH (11:00)
--- NOTE | 2018-06-26 15:03 | PN ---
BHS Progress Note (SOAP) Subjective: Interrupted Sleep, Sweating, Diarrhea, Body Aches, Stomach Cramping. Objective: PATIENT A & O X 3, OBSERVED AMBULATING ON UNIT. IN NO ACUTE DISTRESS. 06/26/18 15:01 Vital Signs Temperature 98.8 F 06/26/18 13:45 Pulse Rate 104 H 06/26/18 13:45 Respiratory Rate 18 06/26/18 13:45 Blood Pressure 130/80 06/26/18 13:45 O2 Sat by Pulse Oximetry (%) Laboratory Tests 06/24/18 06/24/18 06/24/18 07:00 07:00 07:00 WBC 8.1 RBC 4.40 Hgb 14.4 Hct 44.2 MCV 100.4 H MCH 32.7 MCHC 32.6 RDW 14.1 Plt Count 159 D MPV 9.8 D Sodium 141 Potassium 4.3 Chloride 108 H Carbon Dioxide 28 Anion Gap 5 L BUN 24 H Creatinine 0.9 Creat Clearance w eGFR > 60 Random Glucose 64 L Calcium 8.2 L Total Bilirubin 0.4 AST 13 L ALT 19 Alkaline Phosphatase 78 Total Protein 5.7 L Albumin 3.4 RPR Titer Nonreactive LABS NOTED. Assessment: 06/26/18 15:01 WITHDRAWAL SYMPTOMS. Plan: CONTINUE DETOX. INCREASE DAILY PO FLUID INTAKE. PRN IMMODIUM FOR DIARRHEA.
[2018-06-26] MEDS: THIAMINE HCL 100 MG TABLET (FP) PO SCH (22:24)
[2018-06-26] MEDS: MIRTAZAPINE 30 MG TABLET (FP) PO SCH (22:24)
[2018-06-26] MEDS: PRAZOSIN HCL 1 MG CAPSULE PO SCH (22:25)
[2018-06-27] MEDS ORDERED: METHADONE HCL 10 MG TABLET (FOR DETOX USE ONLY) PO ONE (10:00)
[2018-06-27] MEDS: PRENATAL VITAMINS W/ FOLIC ACID TABLET (FP) PO SCH (10:41)
[2018-06-27] MEDS: SERTRALINE HCL 50 MG TABLET (FP) PO SCH (10:41)
--- NOTE | 2018-06-27 14:24 | PN ---
BHS Progress Note (SOAP) Subjective: pt here for heroin detox- says doing fine on protocol- wants to go to [facility] at discharge O: Vital Signs - 24 hr 06/26/18 06/26/18 06/27/18 17:41 22:10 00:30 Temperature 98.1 F 98.2 F Pulse Rate 78 84 Respiratory 19 18 18 Rate Blood Pressure 142/83 150/90 06/27/18 06/27/18 06/27/18 03:30 06:50 09:29 Temperature 97.7 F 98.1 F Pulse Rate 73 75 Respiratory 18 18 18 Rate Blood Pressure 140/92 128/64 06/27/18 13:38 Temperature 98.2 F Pulse Rate 105 H Respiratory 18 Rate Blood Pressure 125/69 Laboratory Tests 06/24/18 06/24/18 06/24/18 07:00 07:00 07:00 WBC 8.1 RBC 4.40 Hgb 14.4 Hct 44.2 MCV 100.4 H MCH 32.7 MCHC 32.6 RDW 14.1 Plt Count 159 D MPV 9.8 D Sodium 141 Potassium 4.3 Chloride 108 H Carbon Dioxide 28 Anion Gap 5 L BUN 24 H Creatinine 0.9 Creat Clearance w eGFR > 60 Random Glucose 64 L Calcium 8.2 L Total Bilirubin 0.4 AST 13 L ALT 19 Alkaline Phosphatase 78 Total Protein 5.7 L Albumin 3.4 RPR Titer Nonreactive a/p: continue heroin detox protocol- pt to go to [facility] at discharge
[2018-06-27] MEDS: PRAZOSIN HCL 1 MG CAPSULE PO SCH (22:00)
[2018-06-27] MEDS: MIRTAZAPINE 30 MG TABLET (FP) PO SCH (22:49)
[2018-06-27] MEDS: THIAMINE HCL 100 MG TABLET (FP) PO SCH (22:50)
[2018-06-28] MEDS ORDERED: METHADONE HCL 5 MG TABLET (FOR DETOX USE ONLY) PO ONE (06:00)
[2018-06-28 09:49] VITALS: BP 152/86; PULSE 88; TEMP 97.5
[2018-06-28] MEDS: SERTRALINE HCL 50 MG TABLET (FP) PO SCH (10:23)
[2018-06-28] MEDS: PRENATAL VITAMINS W/ FOLIC ACID TABLET (FP) PO SCH (10:23)
--- NOTE | 2018-06-28 12:02 | PN ---
S Progress Note (SOAP) Subjective: No medical complaints Anxious about aftercare placement Objective: 06/28/18 12:01 A & O x 3 Gait steady Vital Signs Temperature 97.5 F L 06/28/18 09:48 Pulse Rate 88 06/28/18 09:48 Respiratory Rate 18 06/28/18 09:48 Blood Pressure 152/86 06/28/18 09:48 O2 Sat by Pulse Oximetry (%) Assessment: 06/28/18 12:01 detox completed Plan: for discharge
--- NOTE | 2018-06-28 12:05 | DS ---
[facility] Detox Discharge Summary Admission Date: 06/23/18 Discharge Date: 06/28/18 - History Additional Comments: pt being discharged Going to [facility] for rehab In no acute distress Declines NArcan prescription stating he has a lot Needs his psych meds rx, will have [facility]d call here for prescription on saturday if they cannot give it to him there. - Physical Exam Results Vital Signs: Vital Signs Temperature 97.5 F L 06/28/18 09:48 Pulse Rate 88 06/28/18 09:48 Respiratory Rate 18 06/28/18 09:48 Blood Pressure 152/86 06/28/18 09:48 O2 Sat by Pulse Oximetry (%) Pertinent Admission Physical Exam Findings: withdrawals sx - Treatment Hospital Course: Detox Protocol Followed, Detoxed Safely, Responded well, Discharged Condition Good, Rehab Referral Accepted Patient has Accepted a Rehab Referral to: [facility] - Medication Discharge Medications: Ambulatory Orders Prazosin HCl [Minipress] 1 mg PO HS 09/22/16 Sertraline HCl [Zoloft -] 50 mg PO DAILY 02/26/18 Mirtazapine [Remeron -] 30 mg PO HS #30 tablet 03/17/18 - AMA Did Patient Leave Against Medical Advice: No
== END 2018-06-28 11:57 | disposition home or self-care (01) | DRG 773 ==
LOC: YASAS 09:35 → Y6N 10:27
PROC: HZ2ZZZZ Detoxification Services for Substance Abuse Treatment (ICD-10-PCS; principal; 2018-06-23)
DX: F11.23 Opioid dependence with withdrawal (principal); F10.230 Alcohol dependence with withdrawal, uncomplicated; F14.20 Cocaine dependence, uncomplicated; F17.213 Nicotine dependence, cigarettes, with withdrawal; F33.9 Major depressive disorder, recurrent, unspecified; F19.282 Other psychoactive substance dependence with psychoactive substance-induced sleep disorder; F43.10 Post-traumatic stress disorder, unspecified; F41.0 Panic disorder [episodic paroxysmal anxiety]; G62.9 Polyneuropathy, unspecified; H91.93 Unspecified hearing loss, bilateral; R76.11 Nonspecific reaction to tuberculin skin test without active tuberculosis; Z87.820 Personal history of traumatic brain injury; Z86.69 Personal history of other diseases of the nervous system and sense organs
CPT/HCPCS: 36415; 80053; 85027; 86593